=== PATIENT | female | born 1985 | race Two or more races ===

== ENCOUNTER → 2023-06-21 | Outpatient (CLI) | payer OTHER, SELFPAY ==
[2023-06-21 11:07] LABS: ALB/GLOB Ratio 1.1 RATIO (0.9-2.4); AST(SGOT) 9 U/L (15-37); Alanine Aminotransfer ALT/SGPT 18 U/L (13-56); Alkaline Phosphatase 41 U/L (45-117); Anion Gap 4 (5-15); BUN 11 mg/dL (7-18); BUN/Creat Ratio 15.2 RATIO (10-20); Calcium,Total 8.8 mg/dL (8.5-10.1); Chloride 105 mmol/L (98-107); Cholesterol 210 mg/dL (200); Creatinine, Serum 0.72 mg/dL (0.55-1.02); EST Glomerular Filtration Rate 95 mL/min (>60); Est Glom Filt Rate - Afr Amer 115 mL/min (>60); Globulin 3.5 g/dL (2.2-4.2); Glucose 96 mg/dL (74-106); High Density Lipoprotein 57 mg/dL; Potassium 4.2 mmol/L (3.5-5.1); Protein, Total 7.5 g/dL (6.4-8.2); Sodium Level 137 mmol/L (136-145); Triglycerides 58 mg/dL; Very Low Density Lipoprotein 12 mg/dL (5-40)
== END | disposition home or self-care (01) ==
PROVIDERS: PCP Family Medicine; Referring Provider Family Medicine; Visit Provider Family Medicine
DX: Z00.00 Encounter for general adult medical examination without abnormal findings (principal)
CPT/HCPCS: 36415; 80053; 80061; 84443

== ENCOUNTER → 2023-10-15 | Outpatient (CLI) | payer OTHER, SELFPAY ==
--- NOTE | 2023-10-15 09:40 | BI_ITS ---
MAMMOGRAPHY - BILATERAL SCREENING REASON FOR EXAM: Female, 38 years old. Routine annual screening examination. PERTINENT HISTORY: Non-contributory. TECHNIQUE: Digital bilateral breast victoria (3D mammographic acquisition) in the CC and MLO projections. 2-D mediolateral oblique (MLO) and craniocaudad (CC) views of both breasts were obtained. CAD: Full Field Digital Mammography with Computer Added Detection was performed. COMPARISON: None. Baseline examination. FINDINGS: Breast Composition: The breasts are extremely dense, which lowers the sensitivity of mammography. There are no dominant masses or suspicious calcifications. No other significant abnormalities are identified. BI/SCRN MAMM (CAD)W/VICTORIA BILAT IMPRESSION: Negative screening mammogram. Yearly followup mammogram recommended. (A) ASSESSMENT CATEGORY: BIRADS Category 1: Negative. A letter regarding these results will be sent to the patient by the facility within 30 days. Approximately 10% of breast cancers are not detected by mammography. A normal mammogram should not delay biopsy of a clinically suspicious abnormality. [id number] Electronically Signed: Marco A Villa MD at 12:15 EST ,
--- OUTSIDE RECORDS SUMMARY | 2023-10-15 10:06 | XMS RPT_ITS | CCD ---
Author Name Unknown Address [address] [place] [address] Organization [facility] Care Team Providers Care Area Director Name Role Phone Franck Pate Unavailable Unavailable Franck Pate Unavailable Unavailable No Doctor Assigned, Nodr Unavailable Unavail able Arjun Gonsalves Primary Care Provider ASHTYN ARJUN Primary Care Unavailable ASHTYN, ARJUN Primary Care Unavailable YAHAIRA, LAUREEN Boogie Attending Unavailable YAHAIRA, LAUREEN F Referring Unavailable YAHAIRA, LAUREEN F Attending Unavailable YAHAIRA, LAUREEN F Referring Unavailable ASHTYN, ARJUN Primary Care Unavailable TADEO ROBIN Attending Unavailable TADEO ROBIN Referring Unavailable ASHTYN ARJUN Primary Care Unavailable NATHANIEL AGEE Attending Unavailable ASHTYN, ARJUN Primary Care Unavailable ASHTYN, ARJUN Referring Unavailable ASHTYN, ARJUN Primary Care Unavailable ILIANA GIPSONHEN Attending Unavailable Allergies Allergy Classification Reported Allergen(s) Allergy Type Date of Onset Reaction(s) Facility (1 source) No Known Medication Allergies; Translations: [No Known Medication Allergies] Propensity to adverse reactions to drug (disorder) [facility] Repository Medications Current Medications Medication Drug Class(es) Dates Sig (Normalized) Sig (Original) Ethinyl Estradiol / Ferrous fumarate / Norethindrone (1 source) Estrogen Start: 07-14-2021Februaryl Fe 24 1-20 MG-MCG(24) tablet hydrOXYzine hydrochloride 50 mg oral tablet (1 source) Antihistamine Start: 08-04-2021 take 1 tablet by mouth every six hours as needed hydrOXYzine hcl 50 MG tablet Take 1 tablet by mouth every 6 hours as needed for Anxiety for up to 20 doses. 20 tablet 0 08/04/2021 Active Completed/Discontinued Medications Medication Drug Class(es) Dates Sig (Normalized) Sig (Original) albuterol 0.83 mg/ml inhalation solution (1 source) beta2-Adrenergic Agonist Start: 08-04-2021 End: 08-04-2021 albuterol (PROVENTIL) (2.5 MG/3ML) 0.083% inhalation solution 1.25 mg Problems Active Problems Problem Classification Problem Date Documented Da te Episodic/Chronic Other upper respiratory disease (2 sources) Nasal congestion; Translations: [Nasal congestion] Onset: 06-03-2022 Episodic Residual codes; unclassified (2 sources) Other specified personal risk factors, not elsewhere classified; Translations: [Other specified personal risk factors, not elsewhere classified] Onset: 06-03-2022 Episodic Unclassified (1 source) Cough, unspecified; Translations: [Cough, unspecified] Onset: 06-03-2022 Past or Other Problems Problem Classification Problem Date Documented Da te Episodic/Chronic Diabetes mellitus without complication (3 sources) Increased glucose level; Translations: [Other abnormal glucose] Onset: 08-04-2021 Episodic Fluid and electrolyte disorders (3 sources) Hypokalemia; Translations: [Hypokalemia] Onset: 08-04-2021 Episodic Other lower respiratory disease (2 sources) Chest pain on breathing; Translations: [Chest pain on breathing] Onset: 08-04-2021 Episodic Other lower respiratory disease (1 source) Chest pain on breathing; Translations: [Chest pain on breathing] Onset: 08-04-2021 Episodic Unclassified (1 source) Cough, unspecified; Translations: [Cough, unspecified] Onset: 06-03-2022 Results Test Name Value Interpretation Reference Range Facil ity Vital Signs Date Time Vital Sign Value Performing Clinician Iva cantu 08-04-2021 19:00-0500 Diastolic blood pressure 76 mm[Hg] Nathaniel Agee MD Work Phone: [facility] 08-04-2021 19:00-0500 Heart rate 73 /min Nathaniel Agee MD Work Phone: [facility] 08-04-2021 19:00-0500 Respiratory rate 19 /min Nathaniel Agee MD Work Phone: [facility] 08-04-2021 19:00-0500 SaO2% (BldA) [Mass fraction] 98 % Nathaniel Agee MD Work Phone: [facility] 08-04-2021 19:00-0500 Systolic blood pressure 125 mm[Hg] Nathaniel Agee MD Work Phone: [facility] 08-04-2021 15:41-0500 Body height 177.8 cm Nathaniel Agee MD Work Phone: [facility] 08-04-2021 15:41-0500 Body mass index (BMI) [Ratio] 25.83 kg/m2 Nathaniel Agee MD Work Phone: [facility] 08-04-2021 15:41-0500 Body weight 81.65 kg Nathaniel Agee MD Work Phone: [facility] Encounters Encounter Date Encounter Type Care Provider Facility Start: 06-03-2022 ambulatory [facility] Start: 10-27-2021 ambulatory [facility] Start: 08-04-2021 End: 08-04-2021 Emergency department patient visit NATHANIEL AGEE [facility] Start: 08-04-2021 End: 08-04-2021 Emergency department patient visit Nathaniel Agee MD Work Phone: [facility] Start: 07-27-2021 ambulatory [facility] Start: 06-24-2021 ambulatory [facility] Start: 05-06-2018 End: 05-06-2018 Patient encounter Franck Pate Facility:[facility] Procedures Date Procedure Procedure Detail Performing Clinician Start: 08-04-2021 Complete blood count with white cell differential, automated Nathaniel Agee MD Work Phone: Start: 08-04-2021 Comprehensive metabo lic panel Nathaniel Agee MD Work Phone: Plan of Treatment Date Care Activity Detail Author Start: 2004 Screening for malign ant neoplasm of cervix CERVICAL CANCER SCREENING DISCUSSION [facility] Start: 2002 Third diphtheria, te tanus and acellular pertussis (DTaP) vaccination TDAP (ADULT) [facility] Start: 2001 Tetanus vaccination TETANUS [facility] Start: 1998 HIV screening HIV SCREENING DISCUSSION [facility] Start: 1988 COVID-19 VACCINE (1) COVID-19 VACCIN E (1) [facility] Start: 1983 Hepatitis C antibody , confirmatory test HEPATITIS C VIRUS SCREENING [facility] Payers Date Payer Category Payer Unknown [facility] [id number] 2021-Present [address] [address] [place] [address] [id number] 2021 Unknown [id number] 2018 Unknown 1983 Unknown [id number] 1983 Unknown [id number] 1983 Unknown [id number] 1983 Unknown [id number] 1983 Unknown [id number] 1983 Unknown [id number] Social History Date Type Detail Facility [facility]: [facility]04[facility] Start: 08-04-2021 Tobacco use and exposure Smoke less tobacco non-user [facility] Start: 08-04-2021 Alcohol intake Lifetime non-d daniel (finding) [facility] Start: 08-04-2021 History SDOH Alcohol Frequency 1 [facility] Start: 1985 Sex Assigned At Not on file A [facility] Exposure to SARS-CoV -2 (event) Yes [facility] Emergency department Note 08-04-2021 Alisson Myers RN - 08/04/2021 7:03 PM Kenton Myers RN - 08/04/2021 5:34 PM Mars Agee MD - 08/04/2021 4:44 PM Kenton Myers RN - 08/04/2021 4:21 PM EST Note Date & Type Note Facility 08-04-2021 Emergency departm ent Note Reported off to Bereket PHILLIPS at this time Radha in [place] notified of breathing treatment Emergency Department Report [facility] EM[facility] Service Date:.08/04/21 PCP: Arjun Gipson Chief Complaint: Chief Complaint Patient presents with Chest Pain Rapid Heart Rate HPI Raúl Cabrera is a 36 y.o. 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 She has not been having any cough or fever or any Covid symptoms and just finished getting over Covid about 6 weeks ago. Her heart rate would go up to the 100 210 range and states it normally would only go up to 70 or 80. She had an IUD removed about a month ago and has been on 3 weeks of hormone replacement. She also was started 6 days ago on Lexapro for anxiety. She does seem like her anxiety may have actually increased a little since being started on it. She has not had any wheezing and presents here for assessment. Review of Systems: Review of Systems All other systems reviewed and are negative. Past Medical History: No past medical history on file. Past Surgical History: No past surgical history on file. Allergies: No Known Allergies Medications: Patient's Medications New Prescriptions HYDROXYZINE HCL 50 MG TABLET Take 1 tablet by mouth every 6 hours as needed for Anxiety for up to 20 doses. Previous Medications 1-20 MG-MCG(24) TABLET Modified Medications No medications on file Discontinued Medications No medications on file Family History: History reviewed. No pertinent family history. Social History: Social History Socioeconomic History Marital status: Spouse name: Not on file Number of children: Not on file Years of education: Not on file Highest education level: Not on file Occupational History Not on file Tobacco Use Smoking status: Never Smoker Smokeless tobacco: Never Used Substance and Sexual Activity Alcohol use: Never Drug use: Never Sexual activity: Not on file Other Topics Concern Not on file Social History Narrative Not on file Social Determinants of Health Financial Resource Strain: Not on file Food Insecurity: Not on file Transportation Needs: Not on file Physical Activity: Not on file Stress: Not on file Social Connections: Not on file Intimate Partner Violence: Not on file Housing Stability: Not on file Physical Exam: Physical Exam Vitals and nursing note reviewed. Constitutional: Appearance: Normal appearance. She is well-developed. Comments: Patient is able to talk in complete sentences. HENT: Head: Normocephalic and atraumatic. Mouth/Throat: Mouth: Mucous membranes are moist. Eyes: Conjunctiva/sclera: Conjunctivae normal. Pupils: Pupils are equal, round, and reactive to light. Neck: Comments: No thyroid mass Cardiovascular: Rate and Rhythm: Normal rate and regular rhythm. Pulmonary: Effort: Pulmonary effort is normal. Breath sounds: Normal breath sounds. Abdominal: General: Abdomen is flat. Musculoskeletal: General: Normal range of motion. Cervical back: Normal range of motion and neck supple. Right lower leg: No edema. Left lower leg: No edema. Skin: General: Skin is warm and dry. Capillary Refill: Capillary refill takes less than 2 seconds. Neurological: General: No focal deficit present. Mental Status: She is alert and oriented to person, place, and time. Psychiatric: Mood and Affect: Mood normal. Behavior: Behavior normal. Thought Content: Thought content normal. Vital Signs During ED Visit Patient Vitals for the past 24 hrs: BP Pulse Resp SpO2 Height Weight 08/04/21 1900 125/76 73 19 98 % 08/04/21 1800 134/80 74 19 98 % 08/04/21 1752 (!) 144/94 74 18 100 % 08/04/21 1713 138/83 80 16 99 % 08/04/21 1541 1.778 m (5' 10 ) 81.6 kg (180 lb) 08/04/21 1540 179/84 78 18 100 % Orders/Results: Orders Placed This Encounter Troponin I, High sensitivity CBC, EDIF, PLATELET COMPREHENSIVE METABOLIC PANEL MAGNESIUM D-DIMER,QUANTITATIVE Junel Fe 24 1-20 MG-MCG(24) tablet albuterol (PROVENTIL) (2.5 MG/3ML) 0.083% inhalation solution 1.25 mg potassium chloride (K-DUR) tablet ER 20 mEq hydrOXYzine hcl 50 MG tablet Results for orders placed or performed during the hospital encounter of 08/04/21 TROPONIN I, HIGH SENSITIVITY Result Value Ref Range TROPONIN I, HIGH SENSITIVITY <2 0 - 12 pg/mL CBC, EDIF, PLATELET Result Value Ref Range WBC (WHITE BLOOD COUNT) 7.5 3.6 - 11.0 10*3/uL RBC 4.48 4.0 - 5.4 10*6/uL HEMOGLOBIN (HGB) 13.5 12.0 - 16.0 G/DL HEMATOCRIT (HCT) 39.5 36.0 - 48.0 % MEAN CELL VOLUME 88.2 80.0 - 100.0 FL Mean Cell HGB 30.2 26.0 - 35.0 PG MEAN CELL HGB CONCENTRATION 34.2 27.0 - 37.0 G/DL RBC DISTRIBUTION 12.8 11.5 - 14.5 % PLATELET COUNT 277 130.0 - 400.0 10*3/uL MEAN PLATELET VOLUME 9.6 7.4 - 11.0 FL DIFFERENTIAL TYPE AUTO DIFF % NEUTROPHILS 68.9 37.0 - 75.0 % LYMPHOCYTE 22.5 20.0 - 55.0 % MONOCYTE % 7.4 0.0 - 10.0 % EOSINOPHIL % 0.6 0.0 - 11.0 % BASOPHIL % 0.6 0.0 - 2.0 % Absolute Neutrophil Count 5.2 1.4 - 6.5 10*3/uL LYMPHOCYTES, ABSOLUTE 1.70 1.2 - 3.4 10*3/uL MONOCYTES, ABSOLUTE 0.6 0.0 - 0.7 10*3/uL ABSOLUTE EOSINOPHIL COUNT 0.00 0.0 - 0.7 10*3/uL ABSOLUTE BASOPHIL COUNT 0.0 0.0 - 0.2 10*3/uL COMPREHENSIVE METABOLIC PANEL Result Value Ref Range GLUCOSE 121 (H) 70 - 100 MG/DL BUN 9 7 - 20 MG/DL CREATININE SERUM 0.79 0.52 - 1.04 MG/DL SODIUM 136 136 - 145 MMOL/L POTASSIUM 3.4 (L) 3.5 - 5.1 MMOL/L CHLORIDE 102 98 - 107 MMOL/L CALCIUM 9.3 8.4 - 10.2 MG/DL PROTEIN, TOTAL 7.7 6.3 - 8.2 GM/DL ALBUMIN 4.5 3.5 - 5.0 G/dl BILIRUBIN, TOTAL 0.5 0.2 - 1.2 MG/DL AST 14 (L) 15 - 41 IU/L ALKALINE PHOSPHATASE 34 (L) 38 - 126 IU/L CARBON DIOXIDE (CO2) 24 22 - 30 MMOL/L A/G Ratio 1.4 1.3 - 2.2 RATIO ALT 15 14 - 54 IU/L ESTIMATED GFR, NON AMER >60 ml/min/1.73sq.m ESTIMATED GFR, >60 ml/min/1.73sq.m GFR COMMENT Average GFR for 30-39 years old = 109. MAGNESIUM Result Value Ref Range MAGNESIUM 2.1 1.6 - 2.3 MG/DL D-DIMER,QUANTITATIVE Result Value Ref Range D-DIMER 0.43 <0.50 mg/L FEU Radiographic Imaging No orders to display Procedures: Procedures Patient had an EKG obtained read by myself and shows normal sinus rhythm. She has a questionable incomplete right bundle branch block with [place] 0.16 and a QRS of 0.1. There are no acute ST-T changes and no old EKGs to compare this to. Moderate Sedation Procedure: No ED Summary/MDM patient's states she has felt stressed and some anxiety. This does seem like it has increased since she was started on the Lexapro. She is having central chest burning with inspiration and expiration and will see what albuterol treatment does. We will also get a baseline electrolytes and labs and compared to what she had done just a couple weeks ago Labs had a sugar that was mildly elevated at 121. Potassium was 3.4. D-dimer was negative. Sat remained 100% and she states she may have had just a brief slight decrease in her chest feeling with the breathing treatment but did not want to pursue this further. We will have her hold the Lexapro and follow-up with Dr. Da Silva calling in the morning to give an update. If she starts having a fever or starts feeling worse then she needs to be rechecked earlier. We will add intermittent hydroxyzine as needed Clinical Impression: 1. Chest pain on breathing 2. Hypokalemia 3. Elevated glucose No follow-ups on file. New Prescriptions HYDROXYZINE HCL 50 MG TABLET Take 1 tablet by mouth every 6 hours as needed for Anxiety for up to 20 doses. Discontinued Medications No medications on file An After Visit Summary was printed and given to the patient with above information. . . Nathaniel Agee MD 08/04/211923 Nathaniel Agee MD 08/04/211942 Pt states that she is feeling chest pressure with feeling of SOB. Pt states that her blood pressure has been higher than her normal. Pt also states that she started birthcontrol 3 weeks ago. Pt is resting comfortable and denies any needs at this time Bed: E011 Expected date: Expected time: Means of arrival: Comments: JIC documented in this encounter [facility] Hospital Discharge instructions 08-04-2021 Instructions Note Date & Type Note Facility 08-04-2021 Hospital Discharg e instructions Nathaniel Agee MD - 08/04/[address] GIPSON IN THE MORNING TO ARRANGE FOR FOLLOW UP BASED ON HOW YOU ARE FEELING. YOUR SUGAR WAS UP A LITTLE AND YOUR POTASSIUM WAS SLIGHTLY LOW AND GIVEN A ONE TIME BOOST AND BOTH MAY NEED RECHECKED. HOLD THE LEXAPRO FOR NOW AND TRY THE HYDROXYZINE (CAN START WITH 1/2 PILL) FOR ANXIETY FEELING. GET RECHECKED EARLIER IF FEVER OR WORSE BREATHING CONSIDER PULSE OX CHECK) OR PUS HEART RATE STAYING 130 OR HIGHER. documented in this encounter [facility] Evaluation note Note Date & Type Note Facility documented in this encounter [facility] Summary Purpose Family History No Family History Records FoundNo Family History Records Found Advance Directives No Advanced Directives Records FoundNo Advanced Directives Records Found Additional Source Comments INFORMATION SOURCE (unrecogn ized section and content) DATE CREATED AUTHOR AUTHOR'S ORGANIZ ATION 06/16/2022 [facility] benito Reason for Visit (unrecogniz ed section and content) Scheduled Active and Recently Administ ered Medications (unrecognized section and content) Care Teams (unrecognized sec tion and content) FOR RECORDS PERTAINING TO PATIENTS WHO ARE OR HAVE BEEN ENROLLED IN A CHEMICAL DEPENDENCY/SUBSTANCEABUSE PROGRAM, SOME INFORMATION MAY BE OMITTED. This clinical summary was aggregated from multiple sources. Caution should be exercised in using it in the provision of clinical care. This summary normalizes information from multiple sources, and as a consequence, information in this document may materially change the coding, format and clinical context of patient data. In addition, data may be omitted in some cases. CLINICAL DECISIONS SHOULD BE BASED ON THE PRIMARY CLINICAL RECORDS. [facility] [employer] provides no warranty or guarantee of the accuracy or completeness of information in this document.
== END | disposition home or self-care (01) ==
LOC: OPBI 09:38
PROVIDERS: PCP Family Medicine
DX: Z12.31 Encounter for screening mammogram for malignant neoplasm of breast (principal)
CPT/HCPCS: 77063; 77067

== ENCOUNTER → 2023-10-30 | Outpatient (CLI) | payer OTHER, SELFPAY ==
[2023-10-31 14:16] LABS: Bacteria 0 SEEN /hpf (None Seen); Mucous, Urine 0 SEEN /hpf (<or=2+); Red Blood Cells-Urine 0 SEEN /hpf (0-5); Squamous Epithelial Cells - UA 0 SEEN /hpf (5-10); White Blood Cells 0 SEEN /hpf (0-5)
--- OUTSIDE RECORDS SUMMARY | 2023-10-31 14:18 | XMS RPT_ITS | CCD ---
Author Name Unknown Address [address] [place] [address] Organization [facility] Care Team Providers Care Patient Partner Name Role Phone Franck Pate Unavailable Unavailable [...] Propensity to adverse reactions to drug (disorder) [facility] Repository Medications Current Medications Medication Drug Class(es) [...] 76 mm[Hg] Nathaniel Agee MD Work Phone: [facility] 08-04-2021 19:00-0500 Heart rate 73 /min Nathaniel Agee MD Work Phone: [facility] 08-04-2021 19:00-0500 Respiratory rate 19 /min Nathaniel Agee MD Work Phone: [facility] 08-04-2021 19:00-0500 SaO2% (BldA) [Mass fraction] 98 % Nathaniel Agee MD Work Phone: [facility] 08-04-2021 19:00-0500 Systolic blood pressure 125 mm[Hg] Nathaniel Agee MD Work Phone: [facility] 08-04-2021 15:41-0500 Body height 177.8 cm Nathaniel Agee MD Work Phone: [facility] 08-04-2021 15:41-0500 Body mass index (BMI) [Ratio] 25.83 kg/m2 Nathaniel Agee MD Work Phone: [facility] 08-04-2021 15:41-0500 Body weight 81.65 kg Nathaniel Agee MD Work Phone: [facility] Encounters Encounter Date Encounter Type Care Provider Facility Start: 06-03-2022 ambulatory [facility] Start: 10-27-2021 ambulatory [facility] Start: 08-04-2021 End: 08-04-2021 Emergency department patient visit NATHANIEL AGEE [facility] Start: 08-04-2021 End: 08-04-2021 Emergency department patient visit Nathaniel Agee MD Work Phone: [facility] Emergency Department Start: 07-27-[address] [facility] Start: 06-24-2021 ambulatory [facility] Start: 05-06-2018 End: 05-06-2018 Patient encounter Franck Pate Facility:[facility] Procedures Date Procedure Procedure Detail Performing Clinician Start: 08-04-2021 Complete blood count with white cell differential, automated Nathaniel Agee MD Work Phone: Start: 08-04-2021 Comprehensive metabo lic panel Nathaniel Agee MD Work Phone: Plan of Treatment Date Care Activity Detail Author Start: 2004 Screening for malign ant neoplasm of cervix CERVICAL CANCER SCREENING DISCUSSION [facility] Start: 2002 Third diphtheria, te tanus and acellular pertussis (DTaP) vaccination TDAP (ADULT) [facility] Start: 2001 Tetanus vaccination [facility] Start: 1998 HIV screening HIV SCREENING DISCUSSION [facility] Start: 1988 COVID-19 VACCINE (1) COVID-19 VACCIN E (1) [facility] Start: 1983 Hepatitis C antibody , confirmatory test HEPATITIS C VIRUS SCREENING [facility] Payers Date Payer Category Payer Unknown [facility] [id number] 2021-Present [address] [address] [place] [address] [id number] 2021 Unknown [id number] 2018 Unknown 1983 Unknown [id number] 1983 Unknown [id number] 1983 Unknown [id number] 1983 Unknown [id number] 1983 Unknown [id number] 1983 Unknown [id number] Social History Date Type Detail Facility Start: [facility]04[facility] Start: 08-04-2021 Tobacco use and exposure Smoke less tobacco non-user [facility] Start: 08-04-2021 Alcohol intake Lifetime non-d daniel (finding) [facility] Start: 08-04-2021 History SDOH Alcohol Frequency 1 [facility] Start: 1985 Sex Assigned At Not on file [facility] Exposure to SARS-CoV -2 (event) Yes [facility] Emergency department Note 08-04-2021 Alisson Myers RN - 08/04/2021 7:03 PM Kenton Myers RN - 08/04/2021 5:34 PM Mars Agee MD - 08/04/2021 4:44 PM Kenton Myers RN - 08/04/2021 4:21 PM EST Note Date & Type Note Facility 08-04-2021 Emergency departm ent Note Reported off to Bereket PHILLIPS at this time Radha in [place] notified of breathing treatment Emergency Department Report [facility] EMERGENCY DEPARTMENT Service Date:.08/04/21 PCP: Arjun Gipson Chief Complaint: Chief Complaint Patient presents with Chest Pain Rapid Heart Rate HPI Raúl Cabrera is a 36 y.o. 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 There [...] arrival: Comments: JIC documented in this encounter [facility] Hospital Discharge instructions 08-04-2021 Instructions Note Date [...] 130 OR HIGHER. documented in this encounter [facility] Evaluation note Note Date & Type Note Facility documented in this encounter [facility] Summary Purpose Family History No Family History Records FoundNo Family History Records Found Advance Directives No Advanced Directives Records FoundNo Advanced Directives Records Found Additional Source Comments INFORMATION SOURCE (unrecogn ized section and content) DATE CREATED AUTHOR AUTHOR'S ORGANIZ ATION 06/16/2022 [facility] benito Reason for Visit (unrecogniz ed section [...] BE BASED ON THE PRIMARY CLINICAL RECORDS. [facility] [employer] provides no warranty or guarantee of the accuracy or completeness of information in this document.
[2023-10-31 14:25] LABS: Color, Urine Yellow (Yellow); Glucose, Dipstick Normal (Normal); Ketone-Dipstick Negative (Negative); Leukocyte Esterase-Dipstick Negative /ul (Negative); Nitrite-Dipstick Negative (Negative); Occult Blood-Urine Negative /ul (Negative); Protein-Dipstick Negative (Negative); Specific Gravity, Urine 1.005 (1.002-1.030); Urine Bilirubin Dipstick Negative (Negative); Urine Clarity Clear (Clear); Urine Urobilinogen Normal (Normal)
== END | disposition home or self-care (01) ==
LOC: LABSPEC 10-31 14:15
PROVIDERS: PCP Family Medicine; Referring Provider Nurse Practitioner Family; Visit Provider Nurse Practitioner Family
DX: R10.30 Lower abdominal pain, unspecified (principal)
CPT/HCPCS: 81001; 87086

== ENCOUNTER → 2024-03-07 | Outpatient (CLI) | payer OTHER, SELFPAY | END | disposition home or self-care (01) | LOC: LABSPEC 11:35 | PROVIDERS: Referring Provider Physician Assistant; Visit Provider Physician Assistant | DX: R30.0 Dysuria (principal) | CPT/HCPCS: 87086; 87088; 87186 ==

== ENCOUNTER → 2024-03-17 | Outpatient (CLI) | payer OTHER, SELFPAY | END | disposition home or self-care (01) | LOC: LABSPEC 10:46 | PROVIDERS: Referring Provider Physician Assistant Surgical; Visit Provider Physician Assistant Surgical | DX: N39.0 Urinary tract infection, site not specified (principal) | CPT/HCPCS: 87086; 87088 ==

== ENCOUNTER → 2024-10-25 | Outpatient (CLI) | payer OTHER, SELFPAY ==
[2024-10-25 13:30] LABS: Free T3 2.6 pg/mL (2.18-3.98); T4 Free Direct 0.86 ng/dL (0.76-1.46)
[2024-10-27 08:09] LABS: Thyroid Peroxidase AB < 9 IU/mL (0-34)
== END | disposition home or self-care (01) ==
LOC: LAB 12:11
PROVIDERS: PCP Internal Medicine; Referring Provider Nurse Practitioner Family; Visit Provider Nurse Practitioner Family
DX: Z13.29 Encounter for screening for other suspected endocrine disorder (principal)
CPT/HCPCS: 36415; 84439; 84443; 84481; 86376

== ENCOUNTER → 2024-10-30 | Outpatient (CLI) | payer OTHER, SELFPAY ==
--- NOTE | 2024-10-30 12:48 | BI_ITS ---
PROCEDURE: SCRN MAMM (CAD)W/VICTORIA BILAT REASON FOR EXAM: F, Age 39 y/o, presents for annual screening mammogram. No family history of breast cancer. TECHNIQUE: Bilateral screening digital breast tomosynthesis with 2D and 3D images. Computer aided detection. COMPARISON: 10/15/2023 FINDINGS: The breasts are extremely dense which lowers the sensitivity of mammography. The mammogram demonstrates that the patient has dense breasts. Supplemental screening with whole breast ultrasound may be considered for further evaluation. No suspicious masses, areas of developing architectural distortion, or suspicious calcifications. BI/SCRN MAMM (CAD)W/VICTORIA BILAT IMPRESSION: There is no mammographic evidence of malignancy in either breast. BI-RADS 1: NEGATIVE. RECOMMEND ANNUAL MAMMOGRAPHIC SCREENING. Follow-up code: Routine Follow-up The patient will be notified of the results by letter. Reading Location: [id number]
--- NOTE | 2024-10-30 13:05 | US_ITS ---
PROCEDURE: THYROID REASON FOR EXAM: Thyroid nodules. TECHNIQUE: Thyroid ultrasound COMPARISON: None. FINDINGS: Right thyroid lobe measures 5 cm x 1.8 cm x 1.6 cm. Left thyroid lobe measures 3.8 cm x 1.2 cm x 0.7 cm. Isthmus thickness is. Thyroid Size: Mild enlargement of the right lobe of the thyroid. Background Echotexture: Normal Thyroid Nodules: There is a dominant 2.6 cm x 2.2 cm 1.3 cm hypoechoic/solid nodule with internal vascularity. Biopsy recommended. There is evidence of an 8 mm x 5 mm x 4 mm complex nodule with internal vascularity in the upper pole of the left lobe as well as an 8 mm x 6 mm x 4 mm cystic nodule in the inferior aspect of the left lobe of the thyroid. US/Thyroid IMPRESSION: Mildly enlarged right lobe of the thyroid gland with a dominant complex mass in the midportion of the right lobe of the thyroid. Biopsy recommended. Reading Location: [facility]
== END | disposition home or self-care (01) ==
LOC: OPBI 12:47
PROVIDERS: PCP Internal Medicine; Referring Provider Nurse Practitioner Family; Visit Provider Nurse Practitioner Family
DX: Z12.31 Encounter for screening mammogram for malignant neoplasm of breast (principal); E04.1 Nontoxic single thyroid nodule
CPT/HCPCS: 76536; 77063; 77067

== ENCOUNTER → 2024-11-24 | Outpatient (CLI) | payer OTHER, SELFPAY ==
--- NOTE | 2024-11-24 13:00 | FLU_PTH ---
PATIENT: RAÚL MIRANDA LOC: [facility] U#:[id number] AGE/SX: 39/F ROOM: RE11/24/[address]: Dr. Franck Dupont MD : 1985 BED: DIS: 11/24/2024 SPEC #: [id number] RECD: 11/24/24 14:02 STATUS: MAYRA HUSSEIN #: [id number] TYRON: 11/24/24 13:[address]: Franck Dupont DEPT: CYTOLOGY RECD BY: Deondre Parker ENTERED: 11/24/24 14:32 SP TYPE: Fluid OTHR DR: Dr. Leda Wright MD Tissues: A - Thyroid gland, NOS B - Thyroid gland, NOS Procedures: Special Stain Group II Surgery Specimen Level IV Cytospin Fluid HEADER OPERATION: Fine needle aspiration of right thyroid nodule PRE-OP DIAGNOSIS: Right thyroid nodule TISSUE SUBMITTED: A- Right mid thyroid nodule fluid, B- Right mid thyroid nodule slides DIAGNOSIS CYTOLOGY A. Right mid thyroid nodule, 2.6 cm, cytology and cell block:Benign follicular noduleOccasional nuclear grooves and microfollicles are presentB. Right mid thyroid nodule, 2.6 cm, cytology:Benign follicular noduleFollicular cells and some colloid are presentVasyl Ren MD, 11/30/2024 CYTOLOGY STUDY Slides are reviewed. CYTOLOGY GROSS A. Received is 30 ml of fluid labeled with the patient's name and and designated per the requisition as Right mid thyroid nodule. Submitted for cytology preparation including cell block. B. Received are 4 smears labeled with the patient's name and designated per the requisition as Right mid thyroid nodule. Submitted for staining. Mr 11/24/2024 CPT: 23702h2,63167 , TC:5
== END | disposition home or self-care (01) ==
LOC: LABSPEC 14:06
PROVIDERS: PCP Internal Medicine; Referring Provider Surgery; Visit Provider Surgery
DX: E04.1 Nontoxic single thyroid nodule (principal)
CPT/HCPCS: 88108; 88305; 88313

== ENCOUNTER → 2025-03-08 | Outpatient (CLI) | payer OTHER, SELFPAY ==
[2025-03-08 16:38] LABS: Follicle Stimulating Hormone 4.9 mIU/mL
[2025-03-14 09:09] LABS: Sex Hormone-binding Globulin 54.3 nmol/L (24.6-122.0); Testosterone, % Free 2.61 % (0.50-2.80); Testosterone, Free 5.27 ng/dL (0.10-0.85); Testosterone, Total 202 ng/dL (4-50)
== END | disposition home or self-care (01) ==
LOC: LAB 15:13
PROVIDERS: PCP Internal Medicine
DX: N95.9 Unspecified menopausal and perimenopausal disorder (principal); R51.9 Headache, unspecified; F39 Unspecified mood [affective] disorder; L70.8 Other acne
CPT/HCPCS: 36415; 82670; 83001; 84270; 84402; 84403

== ENCOUNTER → 2025-04-03 | Outpatient (CLI) | payer OTHER, SELFPAY ==
[2025-04-06 22:07] LABS: Chlamydia By Nucleic Acid AMP Negative (Negative); Gonococcus By Nucleic Acid AMP Negative (Negative)
== END | disposition home or self-care (01) ==
LOC: LABSPEC 16:17
PROVIDERS: Nurse Practitioner Women's Health; PCP Internal Medicine; Visit Provider Obstetrics & Gynecology
DX: N89.8 Other specified noninflammatory disorders of vagina (principal); Z11.3 Encounter for screening for infections with a predominantly sexual mode of transmission
CPT/HCPCS: 87070; 87077; 87205; 87491; 87591

== ENCOUNTER → 2025-04-06 | Outpatient (CLI) | payer OTHER, SELFPAY ==
--- NOTE | 2025-04-06 14:26 | US_ITS ---
PROCEDURE: PELVIC W/ TRANSVAGINAL 04/06/2025 REASON FOR EXAM: AUB TECHNIQUE: PELVIC W/ TRANSVAGINAL COMPARISON: None. FINDINGS: Measurements: Uterus: 10.5 x 5.2 x 5.9 cm for volume of 165.9 mL Endometrial Thickness: 0.7 cm Right Ovary: 4.2 x 2.9 x 3.3 cm for volume of 20.5 mL . Left Ovary: 2.6 x 3.0 x 2.6 cm for volume of 10.7 mL. Uterus: Anteverted. Normal contour echotexture. Heterogeneous lesion near the uterine fundus measuring 1.2 x 1.0 x 1.2 cm. Endometrium: Normal echotexture. Trace fluid in the cervical canal. Right ovary: Multiple prominent follicles, approximately 10 on a single image. Left ovary: Questionable hypoechoic avascular lesion near the periphery measuring less than 1 cm could represent a corpus luteum or hemorrhagic cyst (O-RADS 1 or 2), and does not require follow-up. Cul-de-sac: Minimal free fluid in the pelvis within normal limits. Color Doppler: Normal color flow doppler signal at both ovaries. US/Pelvic w/ Transvaginal IMPRESSION: 1. Polycystic morphology of the right ovary. Correlate for clinical evidence of PCOS. 2. Leiomyoma at the uterine fundus measuring 1.2 cm. Reading Location: [id number]
== END | disposition home or self-care (01) ==
LOC: US 14:22
PROVIDERS: PCP Internal Medicine; Referring Provider Nurse Practitioner Women's Health; Visit Provider Nurse Practitioner Women's Health
DX: N93.9 Abnormal uterine and vaginal bleeding, unspecified (principal); N89.8 Other specified noninflammatory disorders of vagina; A63.0 Anogenital (venereal) warts; Z20.2 Contact with and (suspected) exposure to infections with a predominantly sexual mode of transmission
CPT/HCPCS: 76830; 76856

== ENCOUNTER 2025-04-24 10:47 | Outpatient (REF) | payer OTHER, SELFPAY ==
[2025-04-24 10:47] VITALS: BP 138/100; PULSE 77; RESP 16; TEMP 36.1; O2SAT 100; BMI 21.5
--- NOTE | 2025-04-24 11:40 | EX.ED.UPPERE ---
HPI History of Present Illness HPI Narrative: Patient presents with needlestick exposure to her left index finger that occurred today. Patient states she was administering heparin to outpatient when the needle went through his skin and into her finger. Patient reports that the source patient does not have a diagnosis of HIV or hepatitis. Patient reports that the source patient is admitted to the hospital for congestive heart failure and he is 90+ years old. Patient denies any paresthesias or weakness. Patient states her immunizations are up-to-date. Chief Complaint: Occup Expose Informant: patient Occured/Mechanism Mechanism/Context: Yes work related Comment: Needlestick exposure Onset/Context/Timing Onset: Today Context: Sudden Onset Timing: Continuous Location: Pad of left index finger Current Severity: Gone Associated Symptoms Associated Symptoms: Negative for Parasthesia, Weakness or Loss of Funtion [facility] Medical History Situational anxiety Allergies No active medical problems Home Medications ?Medication ?Instructions ?Recorded ?Last Taken ?Type boric acid 600 mg vaginal mg vaginal 04/03/25 Unknown History suppository cholecalciferol (vitamin D3) 50 50 mcg PO QDAY 04/03/25 Unknown History mcg (2,000 unit) capsule doxycycline hyclate 50 mg capsule 50 mg PO QDAY 04/03/25 Unknown History imiquimod 5 % topical cream packet 1 applic topical .COMPLEX #12 ea 04/03/25 Unknown Rx multivitamin 1 tab PO QAM 04/03/25 Unknown History testosterone 25 mg implant pellet mg implant 04/03/25 Unknown History norethindrone acetate 5 mg tablet 5 mg PO .COMPLEX #45 tabs 04/08/25 Unknown Rx Allergy/AdvReac Type Severity Reaction Status Date / Time No Known Allergies Allergy Verified 04/24/25 10:49 Family History Father Myocardial infarction, Onset Age: 48 Heart disease CVA (cerebral vascular accident), Onset Age: 60 AAA (abdominal aortic aneurysm) Afib Sister Autoimmune disease lupus Mother Thyroid disorder Surgical History History of surgical procedure [place] teeth extracted Social History adopted: No household members: children number of children: 1 current occupational status: employed 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 pets and animals: Yes pets and animals: cat(s) and dog(s) sexually active: Yes Smoking Status: Former smoker quit date: 09/20/13 pack-years: 7 Tobacco: How many years used: 15 alcohol intake: current alcohol intake frequency: holidays/special occasions only substance use type: does not use caffeine: Yes (1-2) Type: coffee what type of physical activity do you participate in: running frequency: 3-4 times per week do you feel safe at home: Yes ROS ROS ED Constitutional Constitutional ED: Denies chills or fever(s) Eyes Eyes: Denies blurry vision or change in vision ENT ENT ED: Denies rhinorrhea or sore throat Cardiovascular Cardiovascular: Denies chest pain or palpitations Respiratory/Chest Respiratory/Chest: Denies cough or dyspnea Gastrointestinal Gastrointestinal: Denies nausea or vomiting Genitourinary Genitourinary ED: Denies dysuria or hematuria Musculoskeletal Musculoskeletal: Denies back pain or neck pain Integumentary Denies abscess or rash Neurologic Neurologic: Denies headache(s) or weakness Allergic/Immunologic Allergic/Immunologic ED: Denies mouth swelling or urticaria EXAM Physical Exam Const Vital Signs: 04/24/25 10:47 04/24/25 11:15 Temperature 96.9 F L Temperature Source Temporal Pulse Rate 77 Respiratory Rate 16 Respiratory Effort Normal Non-Labored Respiratory Pattern Normal Blood Pressure 138/100 H Blood Pressure Mean 112 Pulse Ox 100 Oxygen Delivery Method Room Air Positive well nourished and well developed General Appearance ED: well developed and NAD HEENT Reports moist mucous membranes Neck full ROM and supple Extremity Extremity Narrative: There is a small puncture wound on the pad of the left index finger. There is no active bleeding. There is no surrounding erythema. There is no discharge or drainage. There is full range of motion of the MP, PIP, and DIP joints of the left index finger. Sensation was intact to light touch in all digits. Capillary refills less than 2 seconds in all digits. Neuro oriented x3, CN's II-XII intact bilaterally, moves all extremities, no focal motor deficits and no sensory deficits noted Sensorium / Orientation: alert Motor Exam: strength 5/5 throughout Psych mental status grossly normal MDM MDM MDM Narrative Medical decision making narrative: Patient was advised that this is low risk for transmission of HIV or hepatitis. Patient was given the option of postexposure prophylaxis but declined at this time. Patient was instructed to keep the area clean and dry. Patient was instructed to follow-up with her primary care physician in 5 to 7 days. Patient was instructed to return if worse in any way. Patient understood and was agreeable with the plan. All questions were answered. Discharge Plan Triage Chief Complaint: Occup Expose ED Provider: Jamari Flores Dx/Rx/DC Orders Clinical Impression: Accidental hypodermic needlestick injury with exposure to body fluid, Elevated blood pressure reading without diagnosis of hypertension Instructions: ED NEEDLE STICK Health Care Worker Prescriptions: No Action testosterone 25 mg pellet implant doxycycline hyclate 50 mg capsule 50 mg PO QDAY multivitamin Tablet 1 tab PO QAM cholecalciferol (vitamin D3) 50 mcg (2,000 unit) capsule 50 mcg PO QDAY boric acid 600 mg suppository vaginal imiquimod 5 % cream in packet 1 applic topical .COMPLEX Qty: 12 1RF Rx Instructions: 1 applic topical 3 times per week up to 16 weeks; norethindrone acetate 5 mg tablet 5 mg PO .COMPLEX Qty: 45 0RF Rx Instructions: 5 mg PO tid until bleeding stops X 24 hr then bid to finish Rx Primary Care Provider: Leda Wright Referrals: Leda Wright MD [Primary Care Provider] - 1-2 Weeks Print Language: Peruvian Disposition Disposition: Home, Self Care
[2025-04-24 11:52] VITALS: BP 128/87; PULSE 71; RESP 15; TEMP 36.1; O2SAT 100
[2025-04-24 12:22] LABS: HIV Nonreactive (Nonreactive); Hepatitis B Surface Antigen Nonreactive (Nonreactive); Hepatitis C Antibody Nonreactive (Nonreactive)
--- OUTSIDE RECORDS SUMMARY | 2025-04-24 18:58 | XMS RPT_ITS | CCD ---
Author Organization [facility] CliniSywv Care Team Providers Care Accounts Receivable Processor Name Role Phone Franck Pate Unavailable Unavailable Franck Pate Unavailable Unavailable No Doctor Assigned, Nodr Unavailable Unavail able [place] SELLING SPECIALIST-MOTORCYCLE MECHANIC, Arjun D Primary Care Provider ASHTYN, ARJUN Primary Care Unavailable ASHTYN, ARJUN Primary Care Unavailable YAHAIRA, LAUREEN F Attending Unavailable YAHAIRA, LAUREEN F Referring Unavailable YAHAIRA, LAUREEN F Attending Unavailable YAHAIRA, LAUREEN F Referring Unavailable ASHTYN, ARJUN Primary Care Unavailable TADEO OBREGON Attending Unavailable TADEO OBREGON Referring Unavailable ASHTYN, ARJUN Primary Care Unavailable NATHANIEL GARZA Attending Unavailable ASHTYN, ARJUN Primary Care Unavailable ASHTYN, ARJUN Referring Unavailable ASTHYN, ARJUN Primary Care Unavailable ASHTYN, ARJUN Attending Unavailable Dr. Tadeo Obregon Primary Care Provider Dr. Tadeo Obregon Referring Provider [phone] LINK Ahumada Attending Provider Dr. Leda Wright MD Primary Care Provider Dr. Leda Wright MD Referring Provider Adithya Sen Attending Provider Yudith Dimas Attending Provider Yudith Dimas Referring Provider Dr. Franck Dupont MD Attending Provider Dr. Franck Dupont MD Referring Provider Dr. Leda Wright MD Primary Care Provider Dr. Nathaniel Ren MD Attending Provider Dr. Nathaniel Ren MD Referring Provider Dr. Leda Wright MD Referring Provider BRIGITTE COTTON Attending Provider BRIGITTE COTTON Referring Provider Kyle MCDANIEL, Leda Primary Care Provider [phone] Kyle MCDANIEL, Dr. Tompkins Referring Provider Zaire WELLFIELD TECHNICIAN-CCarlee Attending Provider Dr. Anna Tracey DO Attending Provider Zaire WELLFIELD TECHNICIAN-C, Carlee Referring Provider Kyle, Leda Primary Care Unavailable Yudith Villanueva Attending Unavailable RoseliamanYudith Referring Unavailable [place], Leda Primary Care Unavailable Yudith Villanueva Attending Unavailable Yudith Villanueva Referring Unavailable Kyle, Leda Primary Care Unavailable Anna Tracey Attending Unavailabl e [place], Leda Primary Care Unavailable SedaliaFuady Referring Unavailable Carlee Tai Attending Unavailable Assessment, Health Risk Attending Unavaila ble Assessment, Health Risk Referring Unavaila ble [place], Leda Primary Care Unavailable CHANG ZUNIGA Attending Unavailable CHANG ZUNIGA Referring Unavailable Kyle, Leda Primary Care Unavailable SedaliaCarlee Attending Unavailable [place], Leda Primary Care Unavailable [place], Leda Referring Unavailable [place], Leda Primary Care Unavailable Franck Dupont Attending Unavailable [place], Leda Referring Unavailable Kyle, Leda Primary Care Unavailable Yudith Villanueva Attending Unavailable Kyle, Leda Referring Unavailable Kyle, Leda Referring Unavailable Adithya Sen Attending Unavailable [place], Leda Primary Care Unavailable Kyle, Leda Primary Care Unavailable Nathaniel Ren Attending Unavailable Nathaniel Ren Referring Unavailable [place], Leda Primary Care Unavailable Alisson Durant Attending Unavailable [place], Leda Referring Unavailable [place], Leda Primary Care Unavailable Franck Dupont Attending Unavailable Franck Dupont Referring Unavailable Dr. Jamari Flores DO Emergency Provider Allergies Allergy Classification Reported Allergen(s) Allergy Type Date of Onset Reaction(s) Facility (1 source) No Known Medication Allergies; Translations: [No Known Medication Allergies] Propensity to adverse reactions to drug (disorder) [facility] Repository Medications Current Medications Medication Drug Class(es) Dates Sig (Normalized) Sig (Original) Boric Acid 600 mg suppository (4 sources) Start: 04-03-2025 Boric Acid 600 mg suppository Active mg VAGINAL April 03, 2025 12:00am cholecalciferol 0.05 mg oral capsule (4 sources) Vitamin D Start: 04-03-2025 take 1 capsule by mouth once daily Cholecalciferol (Vitamin D3) 50 mcg (2,000 unit) capsule Active 50 ug PO daily April 03, 2025 12:00am doxycycline hyclate 50 mg oral capsule (4 sources) Tetracycline-class Drug Start: 04-03-2025 take 1 capsule by mouth once daily Doxycycline Hyclate 50 mg capsule Active 50 mg PO daily April 03, 2025 12:00am Ethinyl Estradiol / Ferrous fumarate / Norethindrone (1 source) Estrogen Start: 07-14-2021 Junel Fe 24 1-20 MG-MCG(24) tablet hydrOXYzine hydrochloride 50 mg oral tablet (1 source) Antihistamine Start: 08-04-2021 take 1 tablet by mouth every six hours as needed hydrOXYzine hcl 50 MG tablet Take 1 tablet by mouth every 6 hours as needed for Anxiety for up to 20 doses. 20 tablet 0 08/04/2021 Active imiquimod 50 mg/ml topical cream (4 sources) Start: 04-03-2025 Imiquimod 5 % cream in packet Active 1 NMA TOPICAL .COMPLEX 12 1 April 03, 2025 12:00am 1 applic topical 3 times per week up to 16 weeks; Multivitamin tablet (4 sources) Start: 04-03-2025 Multivitamin tablet Active 1 {tbl} PO EVERY MORNING April 03, 2025 12:00am Hytop (Nk) (2 sources) Start: 11-24-2024 Hytop (Nk) Active November 24, 2024 1:00am norethindrone acetate 5 mg oral tablet (2 sources) Start: 04-08-2025 Norethindrone Acetate 5 mg tablet Active 5 mg PO .COMPLEX 45 0 April 08, 2025 12:00am 5 mg PO tid until bleeding stops X 24 hr then bid to finish Rx Testosterone 25 mg pellet (4 sources) Start: 04-03-2025 Testosterone 25 mg pellet Active mg IMPLANT April 03, 2025 12:00am Completed/Discontinued Medications Medication Drug Class(es) Dates Sig (Normalized) Sig (Original) albuterol 0.83 mg/ml inhalation solution (1 source) beta2-Adrenergic Agonist Start: 08-04-2021 End: 08-04-2021 albuterol (PROVENTIL) (2.5 MG/3ML) 0.083% inhalation solution 1.25 mg Start: 08-04-2021 End: 08-04-2021 albuterol (PROVENTIL) (2.5 M G/3ML) 0.083% inhalation solution 1.25 mg amoxicillin 500 mg oral tablet (6 sources) Penicillin-class Antibacterial Start: 09-06-2024 End: 10-25-2024 take 1 tablet by mouth three times daily Amoxicillin 500 mg tablet Discontinued 500 mg PO THREE TIMES A DAY 30 0 September 06, 2024 1:00am October 25, 2024 12:31pm loratadine 10 mg oral tablet (6 sources) Start: 03-21-2024 End: 10-25-2024 take 1 tablet by mouth once daily Loratadine (Allergy Relief (Loratadine)) 10 mg tablet Discontinued 10 mg PO DAILY March 21, 2024 12:00am October 25, 2024 12:31pm metroNIDAZOLE (3 sources) Nitroimidazole Antimicrobial Start: 04-05-2025 End: 04-10-2025 Metronidazole 0.75 % (37.5mg/5 gram) gel Discontinued 1 NMA VAGINAL daily 70 5 0 April 05, 2025 12:00am April 09, 2025 12:00am April 10, 2025 12:06am at bedtime Start: 04-05-2025 Metronidazole 0.75 % (37.5mg/5 gram) gel Active 1 NMA VAGINAL daily 70 5 0 April 05, 2025 12:00am April 09, 2025 12:00am at bedtime nitrofurantoin, macrocrystals 25 mg / nitrofurantoin, monohydrate 75 mg oral capsule (12 sources) Nitrofuran Antibacterial Start: 2024 End: 03-21-2024 take 1 capsule by mouth every twelve hours at mealtime Nitrofurantoin Monohyd/M-Cryst 100 mg capsule Discontinued 1 NMA PO Q12H 14 7 0 2024 12:00am March 22, 2024 12:00am March 21, 2024 10:57am administer with a meal/food; swallow whole; do not open, crush, dissolve , or chew Start: 03-07-2024 End: 03-12-2024 take 1 capsule by mouth every twelve hours at mealtime Nitrofurantoin Monohyd/M-Cryst (Macrobid) 100 mg capsule Discontinued 100 mg PO Q12H 10 5 0 March 07, 2024 12:00am March 11, 2024 12:00am March 12, 2024 12:06am must administer with a meal/food phenazopyridine hydrochloride 100 mg oral tablet (19 sources) Start: 03-07-2024 End: 03-21-2024 take 1 tablet by mouth three times daily as needed Phenazopyridine 100 mg tablet Discontinued 100 mg PO THREE TIMES A DAY as needed March 07, 2024 6:12am March 21, 2024 10:57am Start: 10-30-2023 End: 11-01-2023 take 1 tablet by mouth three times daily at mealtime Phenazopyridine (Pyridium) 100 mg tablet Discontinued 100 mg PO after meals 6 2 0 October 30, 2023 1:00am October 31, 2023 1:00am November 01, 2023 1:04am Take 3 times a day with meals. Do not take longer than 2 days. Will turn urine bright orange/red color. microencapsulated potassium chloride 20 meq extended release oral tablet (1 source) Start: 08-04-2021 End: 08-04-2021 potassium chloride (K-DUR) tablet ER 20 mEq Start: 08-04-2021 End: 08-04-2021 potassium chloride (K-DUR) t ablet ER 20 mEq Problems Active Problems Problem Classification Problem Date Documented Date Episodic/Chronic Immunizations and screening for infectious disease (3 sources) At risk of sexually transmitted infection ; Translations: [Contact with and (suspected) exposure to infections with a predominantly sexual mode of transmission] 07-15-2025 Episodic Menopausal disorders (1 source) Unspecified menopausal and perimenopausal disorder; Translations: [Unspecified menopausal and perimenopausal disorder] Onset: 03-14-2025 Chronic Menopausal disorders (6 sources) Long-term current use of testosterone replacement therapy; Translations: [Hormone replacement therapy] 04-03-2025 Episodic Comment on above: pellet started with naturopathic 01/2025 Menstrual disorders (3 sources) Irregular periods; Translations: [Irregular menstruation, unspecified] 10-25-2024 Chronic Other circulatory disease (1 source) Elevated blood-pressure reading without diagnosis of hypertension; Translations: [Elevated blood-pressure reading, without diagnosis of hypertension] 04-24-2025 Episodic Other diseases of bladder and urethra (7 sources) Spasm of bladder; Translations: [Other specified disorders of bladder] 10-30-2023 Chronic Other diseases of bladder and urethra (1 source) Other specified disorders of bladder; Translations: [Other specified disorders of bladder] 10-30-2023 Chronic Other female genital disorders (8 sources) Abnormal uterine bleeding; Translations: [Abnormal uterine and vaginal bleeding, unspecified] 04-03-2025 Chronic Comment on above: ultrasound. May try aygestin if normal Other female genital disorders (1 source) Abnormal uterine and vaginal bleeding, unspecified; Translations: [Abnormal uterine and vaginal bleeding, unspecified] Onset: 04-12-2025 Chronic Other female genital disorders (3 sources) Vaginal discharge; Translations: [Other specified noninflammatory disorders of vagina] 04-03-2025 Episodic Other female genital disorders (1 source) Other specified noninflammatory disorders of vagina; Translations: [Other specified noninflammatory disorders of vagina] Onset: 04-07-2025 Episodic Other non-traumatic joint disorders (5 sources) Shoulder pain; Translations: [Pain in unspecified shoulder] 03-01-2025 Episodic Other upper respiratory disease (2 sources) Nasal congestion; Translations: [Nasal congestion] Onset: 06-03-2022 Episodic Residual codes; unclassified (2 sources) Other specified personal risk factors, not elsewhere classified; Translations: [Other specified personal risk factors, not elsewhere classified] Onset: 06-03-2022 Episodic Residual codes; unclassified (1 source) Accidental needle stick injury; Translations: [Contact with and (suspected) exposure to potentially hazardous body fluids] 04-24-2025 Episodic Thyroid disorders (10 sources) Thyroid nodule; Translations: [Nontoxic single thyroid nodule] Onset: 12-27-2024 11-24-2024 Chronic Comment on above: Patient is a 39-year -old female, euthyroid from an endocrine standpoint, who presents for surgical consultation related to a self discovered right thyroid nodule. Nodule was palpated incidentally while applying lotion to her neck. She is asymptomatic from any compressive symptomology. I reviewed with her the prevalence of thyroid nodules as well as their triage using the TI-RADS rating system. No rating was given by radiology for her exam, but in my independent review I rated her nodule at a TI-RADS 4. At this rating the nodule would have needed to have exceeded at least 1.5 cm in maximum diameter and at 2.6 to comfortably met this threshold so biopsy recommendation was extended to patient based on ACR criteria. Additionally, I described the procedure for FNA in detail. Patient was readily receptive of this recommendation the procedure was undertaken uncomplicated fashion during today's visit. Full details are given in the procedures section of this note. Thyroid disorders (6 sources) Mass of thyroid gland; Translations: [Disorder of thyroid, unspecified] 11-01-2024 Episodic Comment on above: on ultrasound Unclassified (1 source) Cough, unspecified; Translations: [Cough, unspecified] Onset: 06-03-2022 Viral infection (7 sources) Genital warts; Translations: [Anogenital (venereal) warts] 04-03-2025 Episodic Comment on above: aldara Rx Past or Other Problems Problem Classification Problem Date Documented Da te Episodic/Chronic Diabetes mellitus without complication (3 sources) Increased glucose level; Translations: [Other abnormal glucose] Onset: 08-04-2021 Episodic Fluid and electrolyte disorders (3 sources) Hypokalemia; Translations: [Hypokalemia] Onset: 08-04-2021 Episodic Other circulatory disease (1 source) Other specified symptoms and signs involving the circulatory and respiratory systems; Translations: [Other specified symptoms and signs involving the circulatory and respiratory systems] Onset: 09-06-2024 Episodic Other lower respiratory disease (2 sources) Chest pain on breathing; Translations: [Chest pain on breathing] Onset: 11-15-2021 Episodic Other lower respiratory disease (1 source) Chest pain on breathing; Translations: [Chest pain on breathing] Onset: 08-04-2021 Episodic Other screening for suspected conditions (not mental disorders or infectious disease) (2 sources) Encounter for screening mammogram for malignant neoplasm of breast; Translations: [Encounter for screening for other suspected endocrine disorder] Onset: 11-10-2024 Episodic Unclassified (1 source) Cough, unspecified; Translations: [Cough, unspecified] Onset: 06-03-2022 Unclassified (6 sources) Patient condition finding 03-20-2024 Results Test Name Value Interpretation Reference Range Facility Serum hepatitis B virus surf hermelinda antibody detectionOrdered By: Jamari Flores on 04-24-2025 HBV surface Ab Ql (S) REAC [facility] Comment on above: <8.5 mIU/mL: Non-Watson ctive8.5<= x <11.5 mIU/mL: Indeterminate>=11.5 mIU/mL: Reactive Non Reactive: Inconsistent with immunity less than <10 mIU/mL Reactive: Consistent with immunity greater than or equal to 10 mIU/mL Genital Culture Comprehensiv jacobo 04-07-2025 VAC Reason for Exam: Vaginal odor No yeast or Neisseria isolated. Streptococcus group B Amount Growth 1+ G. vaginalis (Presumptive) G. vaginalis (Presumptive) Normal [facility] Comment on above: Performed By: #### L 7000.1800, M100.3200, M1 #### [facility] [address] [place], [place], [id number] Chlamydia/GC MEERA aptimaon CHLAMY,NUC ACID Negative Normal Negative [facility] Comment on above: Performed By: #### L 7000.1800, M100.3200, M100 #### [facility] [address] [place], [address] GC BY NUC ACID Negative Normal Negative [facility] Comment on above: Result Comment: Perf ormed at: =G - [facility] [address] [place] [id number] Business Strategy Manager: Delmy [place] MD, Phone: [phone] Performed By: #### L 7000.1800, M100.3200, M100.2000 #### [facility] [address] [place], [address] Pelvic w/ Transvaginalon Pelvic w/ Transvaginal [facility] [address] [place] [address] Pelvic w/ Transvaginal MR#: [id number] Acct: [id number] Name: RAÚL CABRERA Rep #: [id number] : 1985 F 40 From: Иван Kruse MD PCP: Dr. Leda Wright MD Status: REG CLI Study: Pelvic w/ Transvaginal Date of Exam: 04/06/25 Exam# [id number] Ordering Dr: Carlee Tai WELLFIELD TECHNICIAN WELLFIELD TECHNICIAN -C PROCEDURE: PELVIC W/ TRANSVAGINAL 04/06/2025 REASON FOR EXAM: AUB TECHNIQUE: PELVIC W/ TRANSVAGINAL COMPARISON: None. FINDINGS: Measurements: Uterus: 10.5 x 5.2 x 5.9 cm for volume of 165.9 mL Endometrial Thickness: 0.7 cm Right Ovary: 4.2 x 2.9 x 3.3 cm for volume of 20.5 mL . Left Ovary: 2.6 x 3.0 x 2.6 cm for volume of 10.7 mL. Uterus: Anteverted. Normal contour echotexture. Heterogeneous lesion near the uterine fundus measuring 1.2 x 1.0 x 1.2 cm. Endometrium: Normal echotexture. Trace fluid in the cervical canal. Right ovary: Multiple prominent follicles, approximately 10 on a single image. Left ovary: Questionable hypoechoic avascular lesion near the periphery measuring less than 1 cm could represent a corpus luteum or hemorrhagic cyst (O-RADS 1 or 2), and does not require follow-up. Cul-de-sac: Minimal free fluid in the pelvis within normal limits. Color Doppler: Normal color flow doppler signal at both ovaries. US/Pelvic w/ Transvaginal IMPRESSION: 1. Polycystic morphology of the right ovary. Correlate for clinical evidence of PCOS. 2. Leiomyoma at the uterine fundus measuring 1.2 cm. Reading Location: [id number] CC: LINK Tai; Dr. Leda Wright MD Explosive Operator Fuse: Signed Normal [facility] Chlamydia trachomatis rRNA d etection by probe and target amplification methodOrdered By: Carlee Tai on 04-03-2025 C. trachomatis rRNA MEERA+probe Ql (Unsp spec) Negative Negative [facility] Genital cultureOrdered By: Augustine Tai on 04-03-2025 Source specific culture G. vaginalis (Presumptive) Abnormal [facility] Gram Stainon 04-03-2025 GS Reason for Exam: Vaginal odor Gram Stain 4+ Gram variable joan No White Blood Cells No Gram negative diplococci Score = 8 Interpretation: 0-3 Normal, 4-6 Intermediate, 7-10 Positive BV Normal [facility] Comment on above: Performed By: #### L 7000.1800, M100.3200, M100.2000 #### [facility] [address] [place] [address], [id number] Gram stainOrdered By: Carlee Tai on 04-03-2025 Microscopic observation Gram stain Nom (Unsp spec) [facility] Neisseria gonorrhoeae nuclei c acid detection by amplified probe techniqueOrdered By: Carlee Tai on 04-03-2025 N. gonorrhoeae DNA MEERA+probe Ql (Unsp spec) Negative Negative [facility] Comment on above: Performed at: =[address] [id number] Director: Delmy Lawson MD, Phone: [phone] No Panel InformationOrdered By: Carlee Tai on 04-03-2025 POC Trichomonas (Rapid) Negative [facility] POC Bacterial Vaginitis (Rapid) Negative [facility] Paste Mixer Liquid Office Visit Reporton 04-03-2025 Paste Mixer Liquid Office Visit Report [facility], [address] [place] [address] OFFICE VISIT Date of Service: 04/03/25 MR#: [id number] Acct: [id number] Name: RAÚL CABRERA Rep #: [id number] : 1985 Provider: LINK rodriguez Age/Sex: 40/F Location[place] [facility] [place] Status: Signed Intake Vital Signs 11/24/24 13:01 04/03/25 11:35 04/03/25 11:44 Height 5 ft 10 in 5 ft 10 in 5 ft 10 in Weight: 156 lb 4 oz BMI 22.4 BP 118/80 Intake Visit Reasons: possible BV *copay $20 Chief Complaint: possible BV Flow Trader Required: No Is patient in pain?: No Allergies No Known Allergies Allergy (Verified 04/03/25 11:35) Medications ???Medication ???Instructions ???Recorded ???Confirmed ???Type boric acid 600 mg vaginal mg vaginal 04/03/25 04/03/25 Histo ry suppository cholecalciferol (vitamin D3) 50 50 mcg PO QDAY 04/03/25 04/03/25 H istory mcg (2,000 unit) capsule doxycycline hyclate 50 mg capsule 50 mg PO QDAY 04/03/25 04/03/25 H istory imiquimod 5 % topical cream packet 1 applic topical .COMPLEX #12 ea 04/03/25 04/03/25 Rx multivitamin 1 tab PO QAM 04/03/25 04/03/25 His tory testosterone 25 mg implant pellet mg implant 04/03/25 04/03/25 Hist ory Is last menstrual period known: Yes Last Menstrual Period: 03/22/25 Post menopausal: No Patient : No : No PFSH Medical History Situational anxiety Allergies No active medical problems Surgical History History of surgical procedure Steele teeth extracted Family History Father Myocardial infarction, Onset Age: 48 Heart disease CVA (cerebral vascular accident), Onset Age: 60 AAA (abdominal aortic aneurysm) Afib Sister Autoimmune disease lupus Mother Thyroid disorder Social History adopted: No household members: children number of children: 1 current occupational status: employed 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 She currently has vaginal odor with discharge. New sexual partner. No contraception. ok if occurred. Has new skin lag on labia X 3 months. She also continues to have irregular vaginal spotting different from menses. Seems to occur postcoitally and after BM. Light in amount. This has been ongoing almost 1 year. Patient did start testosterone pellets 3 months ago for fatigue and hair loss per naturopathic provider. Female Reproductive History Last Menstrual Period: 03/22/25 Questions: metorrhagia: No, sexually active: Yes, dyspareunia: No and PCB: No ROS Const Constitutional: Reports system reviewed and no additional complaints, except as documented Eyes Eyes: Reports system reviewed and no additional complaints, except as documented GI GI: Denies abdominal pain or change in bowel habits : Reports as per HPI Exam Const General: cooperative, no acute distress, well developed and well groomed Nutritional Appearance: well nourished Orientation: oriented x3 External Female Exam: normal appearance of the urethra and lesion (edge of left labia minora 5mm wartlike lesion) Urethra: normal appearance of the urethra Speculum Exam - Vagina: abnormal vaginal discharge yellow Speculum Exam - Cervix: normal appearance of the cervix (smooth, nonfriable) Bimanual Exam- Vagina Uterus: normal bimanual exam, uterine size normal and non-tender Bimanual Exam- Adnexa, other: normal adnexae, no masses and non-tender Coding Level of Care Code Off vis,est,level 4 Diagnoses Abnormal uterine bleeding (AUB) N93.9 Genital warts A63.0 Vaginal discharge N89.8 Long-term current use of testosterone replacement therapy Z79.890 Possible exposure to STD Z20.2 Assessment and Plan Assessment and Plan (1) Abnormal uterine bleeding (AUB): Status: Acute Comment: ultrasound. May try aygestin if normal (2) Genital warts: Status: Acute Comment: aldara Rx (3) Vaginal discharge: (4) Long-term current use of testosterone replacement therapy: Status: Acute Comment: pellet started with naturopathic 01/2025 (5) Possible exp (more content not included)... Normal [facility] Sex Hormone-binding Globulin on 03-14-2025 SHBG 54.3 nmol/L Normal 24.6-122.0 [facility] Comment on above: Result Comment: Perf ormed at: - [facility] [id number] Business Strategy Manager: Srini Sexton PhD, Phone: [phone] Performed at: - [facility] [id number] Business Strategy Manager: Rosalina Garcia MD, Phone: [phone] Performed By: #### L 7000.1800, M100.3200, #### [facility] [address] [place], [address] Testosterone, Total / Freeon 03-14-2025 TESTOSTER,FREE 5.27 ng/dL Abnormal 0.10-0.85 [facility] Comment on above: Order Comment: N Performed By: #### L 7000.1800, M100.320, #### [facility] [address] [place], [address] TESTOSTER,TOTAL 202 ng/dL High 4-50 [facility] Comment on above: Order Comment: N Performed By: #### L 7000.1800, M100.320, M1 #### [facility] [address] [place], [address] TESTOSTERONE,%F 2.61 Normal 0.50-2.80 [facility] Comment on above: Order Comment: N Performed By: #### L 7000.1800, M100.3200, M100.2000 #### [facility] [address] [place], [place], [address] Estradiolon 03-08-2025 ESTRADIOL 311.0 pg/mL Normal [facility] Comment on above: Result Comment: FEMA LES ADULT FEMALE: Premenopausal: 15-350 pg/mL(E2 levels vary widely through the menstrual cycle) Postmenopausal: <10 pg/mL MARK STAGES MEAN AGE REFERENCE RANGES Stage I(>14 days and prepubertal) 7.1 years Undetectable-20 pg/mLL Stage II 10.5 years Undetectable-24 pg/mL Stage III 11.6 years Undetectable-60 pg/mL Stage IV 12.3 years 15-85 pg/mL Stage V 14.5 years 15-350 pg/mL Puberty onset (transition from Mark stage I to Mark stage II) occurs for girls at a median age of 10.5 (/- 2) years. There is evidence that it may occur up to 1 year earlier in obese girls and in girls. Progression through Mark stages is variable. Mark stage V (adult) should be reached by age 18. Performed By: #### L 0.1800, M100.3199, #### [facility] [address] [place], [place], [id number] Follicle Stimulating Hormone on 03-08-2025 FSH 4.9 mIU/mL Normal [facility] Comment on above: Result Comment: FEMA LE: Follicular: 1.4 - 18.1 mIU/mL Midcycle: 3.4 - 33.4 mIU/mL Luteal: 1.5 - 9.1 mIU/mL Post Menopause: 23.0 - 116.3 mIU/mL MALE: 1.4 - 18.1 mIU/mL Performed By: #### L 0.1800, M100.320, #### [facility] [address] [place], [place], [id number] Free testosterone percentage on 03-08-2025 Testosterone Free/Testosterone.total [Mass fraction] 2.61 % 0.50-2.80 [facility] Serum or plasma estradiol me asurement after follitropin dose (mass/volume)on 03-08-2025 E2 post dose follitropin [Mass/Vol] 311.0 pg/mL [facility] Comment on above: FEMALES ADULT FEMALE : Premenopausal: 15-350 pg/mL(E2 levels vary widely through the menstrual cycle) Postmenopausal: <10 pg/mL MARK STAGES MEAN AGE REFERENCE RANGES Stage I(>14 days and prepubertal) 7.1 years Undetectable-20 pg/mLL Stage II 10.5 years Undetectable-24 pg/mL Stage III 11.6 years Undetectable-60 pg/mL Stage IV 12.3 years 15-85 pg/mL Stage V 14.5 years 15-350 pg/mL Puberty onset (transition from Mark stage I to Mark stage II) occurs for girls at a median age of 10.5 (/- 2) years. There is evidence that it may occur up to 1 year earlier in obese girls and in girls.Progression through Mark stages is variable. Mark stage V (adult) should be reached by age 18. Serum or plasma free testost erone measurement (mass/volume)on 03-08-2025 Testosterone Free [Mass/Vol] 5.27 ng/dL High 0.10-0.85 [facility] Serum or plasma sex hormone binding globulin measurement (moles/volume)on 03-08-2025 Sex hormone binding globulin [Moles/Vol] 54.3 nmol/L 24.6-122.0 [facility] Comment on above: Performed at: [employer] [facility] [employer] [address] [id number] Director: Srini Sexton PhD, Phone: [phone] at: [facility] [id number] Director: Rosalina Garcia MD, Phone: [phone] Testosterone, totalon 2024 Testosterone [Mass/Vol] 202 ng/dL High 4-50 [facility] Non-gynecologic cytology rep ortOrdered By: Nathaniel Ren on 11-30-2024 Study report [facility] Other Phone: Special Stain Group IIon Special Stain Group II ----- ---- Patient Age/Sex Location Account Attending Physician ---- RAÚL CABRERA 39/F LAB[facility] [id number] Dr. Franck Dupont MD ---- Specimen: [id number] Received: 11/24/24 Status: MAYRA Cornejolatonya Num: [id number] Spec Type: Fluid Subm Dr: Dr. Franck Dupont MD HEADER OPERATION: Fine needle aspiration of right thyroid nodule PRE-OP DIAGNOSIS: Right thyroid nodule TISSUE SUBMITTED: A- Right mid thyroid nodule fluid, B- Right mid thyroid nodule slides ---- DIAGNOSIS CYTOLOGY A. Right mid thyroid nodule, 2.6 cm, cytology and cell block:Benign follicular noduleOccasional nuclear grooves and microfollicles are presentB. Right mid thyroid nodule, 2.6 cm, cytology:Benign follicular noduleFollicular cells and some colloid are presentVasyl Ren MD, 11/30/2024 CYTOLOGY STUDY Slides are reviewed. CYTOLOGY GROSS A. Received is 30 ml of fluid labeled with the patient's name and and designated per the requisition as Right mid thyroid nodule. Submitted for cytology preparation including cell block. B. Received are 4 smears labeled with the patient's name and designated per the requisition as Right mid thyroid nodule. Submitted for staining. Mr 11/24/2024 CPT: 13531d9,47135 , TC:5 Signed (signature on file) Dr. Nathaniel Ren MD 11/30/24 1115 ---- Normal [facility] Comment on above: Performed By: #### P SSII #### [facility] [address] [place] [address] [place], [address] Surgery Visit Reporton 11-24 Surgery Visit Report [facility] [address] [place] [address] OFFICE VISIT Date of Service: 11/24/24 MR#: [id number] Acct: [id number] Name: RAÚL CABRERA Rep #: [id number] : 1985 Provider: Dr. Franck garcia MD Age/Sex: 39/F Location: [facility] Status: Signed Intake Vital Signs 10/25/24 11:31 11/24/24 13:01 Height 5 ft 10 in 5 ft 10 in Weight: 167 lb 2 oz BMI 24.0 BP 132/86 H Blood Pressure Location Rt brachial Position Sitting Respiration 18 Pulse 68 Pulse Source Monitor Temp 97.5 F L Temp Source Temporal Pulse Oximetry (%) 100 Oxygen Delivery Method room air Intake Visit Reasons: THYROID NODULE Chief Complaint: thyroid nodule Is patient in pain?: No Allergies No Known Allergies Allergy (Verified 11/24/24 13:02) Medications ???Medication ???Instructions ???Recorded ???Confirmed ???Type NK 11/24/24 11/24/24 History PFSH Medical History Situational anxiety Allergies No active medical problems Surgical History History of surgical procedure Steele teeth extracted Family History Father Myocardial infarction, Onset Age: 48 Heart disease CVA (cerebral vascular accident), Onset Age: 60 AAA (abdominal aortic aneurysm) Afib Sister Autoimmune disease lupus Mother Thyroid disorder Social History adopted: No household members: children number of children: 1 current occupational status: 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 They are referred for surgical consultation from [facility] as well as PCP, Dr. Wright. This was discovered by patient approximately 2 months ago she was rubbing some lotion into her neck. They do not experience difficulty with swallowing. They do not complain of a new cough. They do not appreciate new voice changes. They do not have a history of snoring/sleep apnea. Additionally, their weight has been stable and they do not have a history of weight gain/loss or an inability to lose despite intentional effort. There is a history of recent fatigue. Patient details this to state that she has insomnia issues where she awakens inexplicably. They also do have a history of cold intolerance and she specifically describes her hands as being like icicles. Other symptoms include: Pertinent positives palpitations that are perhaps a little worse in the last 2 to 3 months as well as some hair loss that has been particularly evident in the shower. Pertinent negatives include no anxiety or depression, no abnormal GI habits, no abnormal sweating. They do have a family history of thyroid disorders and shared that their mother was initially diagnosed with hyperthyroidism that was later diagnosed as hypothyroidism and ultimately required a partial thyroidectomy. She states she is unaware of any thyroid nodularity or concern for thyroid cancer. There is no history of prior radiation exposure. Previous work-up has included thyroid ultrasound. This study was performed on 10/30/2024 and showed a right thyroid lobe measuring 5.0 x 1.8 x 1.6 cm. Within this lobe radiology identified a dominant nodule measuring 2.6 x 2.2 x 1.3 cm with internal vascularity and a hypoechoic/solid appearance. No TI-RADS rating was given. The left thyroid lobe measured 3.8 x 1 point x 0.7 cm. Within this lobe radiology identified two 8 mm nodules with a solid appearance and then a cystic appearance, respectively. An FNA has not been performed was recommended for patient's right thyroid nodule. Other tests include: TSH: 1.93, free T4: 0.86, free T3: 2.6, anti-TPO antibodies: Less than 9 (10/25/2024) ROS General General: Yes fatigue; No weight change, appetite, colon cancer, breast cancer or weakness HEENT HEENT: Yes swollen glands; No difficulty swallowing, eye injury, eye surgery or hoarseness Endo Endocrine: No thyroid disease, diabetes mellitus, thyroid cancer, Hair loss, heat intolerance or cold intolerance Skin Skin: No rash or changing moles Cardio Cardiovascu (more content not included)... Normal [facility] SCRN MAMM (CAD)W/VICTORIAIsabel Montaño n 10-30-2024 SCRN MAMM (CAD)W/VICTORIA HUMPHREYAT [facility] Imaging Services [address] [place] [id number] SCRN MAMM (CAD)W/VICTORIA PATEL MR#: [id number] Acct: [id number] Name: RAÚL CABRERA Rep #: [id number] : 1985 F 39 From: Gillian Braun MD PCP: Dr. Leda Wright MD Status: REG CLI Study: SCRN MAMM (CAD)W/VICTORIA BILAT Date of Exam: 10/21 Exam# [id number] Ordering Dr: Yudith Villanueva PROCEDURE: SCRN MAMM (CAD)W/VICTORIA BILAT REASON FOR EXAM: F, Age 39 y/o, presents for annual screening mammogram. No family history of breast cancer. TECHNIQUE: Bilateral screening digital breast tomosynthesis with 2D and 3D images. Computer aided detection. COMPARISON: 10/15/2023 FINDINGS: The breasts are extremely dense which lowers the sensitivity of mammography. The mammogram demonstrates that the patient has dense breasts. Supplemental screening with whole breast ultrasound may be considered for further evaluation. No suspicious masses, areas of developing architectural distortion, or suspicious calcifications. BI/SCRN MAMM (CAD)W/VICTORIA BILAT IMPRESSION: There is no mammographic evidence of malignancy in either breast. BI-RADS 1: NEGATIVE. RECOMMEND ANNUAL MAMMOGRAPHIC SCREENING. Follow-up code: Routine Follow-up The patient will be notified of the results by letter. Reading Location: [facility] CC: LINK Villanueva; Dr. Leda Wright MD Explosive Operator Fuse: Signed Normal [facility] Thyroidon 10-30-2024 Thyroid [facility] Imaging Services [address] [place] [id number] Thyroid MR#: [id number] Acct: [id number] Name: RAÚL CABRERA Rep #: [id number] : 1985 F 39 From: Marco A de leon MD PCP: Dr. Leda Wright MD Status: REG CLI Study: Thyroid Date of Exam: 10/30/24 Exam# [id number] Ordering Dr: Yudith Villanueva PROCEDURE: THYROID REASON FOR EXAM: Thyroid nodules. TECHNIQUE: Thyroid ultrasound COMPARISON: None. FINDINGS: Right thyroid lobe measures 5 cm x 1.8 cm x 1.6 cm. Left thyroid lobe measures 3.8 cm x 1.2 cm x 0.7 cm. Isthmus thickness is. Thyroid Size: Mild enlargement of the right lobe of the thyroid. Background Echotexture: Normal Thyroid Nodules: There is a dominant 2.6 cm x 2.2 cm 1.3 cm hypoechoic/solid nodule with internal vascularity. Biopsy recommended. There is evidence of an 8 mm x 5 mm x 4 mm complex nodule with internal vascularity in the upper pole of the left lobe as well as an 8 mm x 6 mm x 4 mm cystic nodule in the inferior aspect of the left lobe of the thyroid. US/Thyroid IMPRESSION: Mildly enlarged right lobe of the thyroid gland with a dominant complex mass in the midportion of the right lobe of the thyroid. Biopsy recommended. Reading Location: [id number] CC: [place]LL[place] TECHNICIANKenia Villanueva; Dr. Leda Wright MD Explosive Operator Fuse: Signed Normal [facility] Thyroid Peroxidase ABon 02-0 -2024 THYR PEROX AB < 9 Normal 0-34 [facility] Comment on above: Result Comment: Perf ormed at: [facility] [address] [id number] Business Strategy Manager: Srini Sexton PhD, Phone: [phone] Performed By: #### L 7000.1800, M100.3200, M1.1999 #### [facility] [address] [place], [address] Direct serum free thyroxine (FT4) measurementOrdered By: Yudith Villanueva on 10-25-2024 Free T4 [Mass/Vol] 0.86 ng/dL 0.76-1.46 [facility] Free T3on 10-25-2024 Free T3 [Mass/Vol] 2.6 pg/mL Normal 2.18-3.98 [facility] Comment on above: Performed By: #### L 506.0400, L501.9520, L3300.6900, L501.69499 #### [facility] [place], [address] Free S7Fbfqway By: Yudith chandler on 10-25-2024 Free Triiodothyronine (T3) pg/dL 2.6 pg/mL 2.18-3.98 [facility] Paste Mixer Liquid Office Visit Reporton 10-25-2024 Paste Mixer Liquid Office Visit Report [facility], [address] [place] [address] OFFICE VISIT Date of Service: 10/25/24 MR#: [id number] Acct: [id number] Name: RAÚL CABRERA Rep #: [id number] : 1985 Provider: LINK Mclean Age/Sex: 39/F Location: [facility] Status: Signed Intake Vital Signs 03/21/24 11:00 09/06/24 10:30 10/25/24 11:11 10/25/24 11:31 Height 5 ft 10 in 5 ft 10 in 5 ft 10 in 5 ft 10 in Weight: 169 lb 167 lb 8 oz BMI 24.2 24.0 BP 120/76 138/85 H Blood Pressure Location Lt brachial Position Sitting Respiration 14 Pulse 74 Pulse Source Monitor Temp 99 F Pulse Oximetry (%) 99 Oxygen Delivery Method room air 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) Chief Complaint: Annual Is patient in pain?: No Allergies No Known Allergies Allergy (Verified 10/25/24 11:31) PFSH Medical History Situational anxiety Allergies No active medical problems Surgical History History of surgical procedure Steele teeth extracted Family History Father Myocardial infarction, Onset Age: 48 Heart disease CVA (cerebral vascular accident), Onset Age: 60 AAA (abdominal aortic aneurysm) Afib Sister Autoimmune disease lupus Mother Thyroid disorder Social History adopted: No household members: children number of children: 1 current occupational status: employed 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 She reports she feels like she may have a thyroid nodule. She reports she noticed this about 3 weeks ago. She also reports hair loss; she constantly feels cold. She reports her menses have been irregular and heavier x about a year. Her last menses ended a week and a half ago and reports today she is spotting again. Last PAP: 2023 at [facility] per patient; reports neg/neg. History of abnormal PAP: no Last mammogram: 2023; normal History of abnormal mammogram: no Colon cancer screening: greater than 10 years. Other preventative health care screenings: Dr. Wright, PCP Female Reproductive History Last Menstrual Period: 10/25/24 Cycle Length: 21-35 Bleeding Duration: 5 Questions: metorrhagia: No, sexually active: Yes (condoms), dyspareunia: No and PCB: No ROS Const Constitutional: Denies chills, fatigue, fever(s), headache(s) or weight loss Eyes Eyes: Denies change in vision ENT ENT: Denies dizziness Cardio Card: Denies palpitations Resp Resp: Denies cough GI GI: Denies abdominal pain, constipation or nausea : Denies difficulty voiding, dysuria, hematuria, pelvic pain, prolapse symptoms, urinary incontinence, vaginal discharge, vaginal dryness, vaginal odor or vaginal pruritus Skin Skin/Breast: Denies alopecia or rash Neuro Neuro: Denies dizziness Psych Psych: Denies anxiety or depression Endo Endo: Reports cold intolerance and other (thyroid nodule--see HPI); Denies excessive sweating or heat intolerance Exam Const General: cooperative, healthy appearing, comfortable, no acute distress, well groomed and well hydrated Nutritional Appearance: well nourished Orientation: alert, awake and oriented x3 HENMT Head: normal to inspection and normocephalic Ears: hearing grossly normal bilaterally and external ears normal Nose: external nose normal Face and sinus: normal facial exam Eyes General: appearance normal, both eyes and all related structures Neck Neck: normal visual inspection, full ROM and no lymphadenopathy Thyroid: other (single nodule to right) Chest Chest palpation inspection: normal inspection of the chest Breast inspection: normal inspection of the breasts and normal inspection of the axillae Breast palpation: normal palpation of the breasts, normal palpation of the axillae and no axillary lymphadenopathy Resp Effort Inspection: normal respiratory effort, able to speak in complete sentences and symmetric chest movement GI Inspection: normal to inspection Palpation: soft and no hepatosplenomegaly General: bladder normal to palpation External Female Exam: normal external appear (more content not included)... Normal [facility] T4 Free Directon 10-25-2024 T4 FREE DIRECT 0.86 ng/dL Normal 0.76-1.46 [facility] Comment on above: Performed By: #### L 7000.1800, M100.3200, M100.1999 #### [facility] [address] [place], [address] TPO Ab QnOrdered By: Yudith iVllanueva on 10-25-2024 Thyroid Peroxidase Antibodies < 9 IU/mL 0-34 [facility] Comment on above: Performed at: [address] [id number] Director: Srini Sexton PhD, Phone: [phone] TSH QnOrdered By: Yudith Mclean on 10-25-2024 Thyroid Stimulating Hormone (TSH) 1.930 uIU/mL 0.358-3.740 [facility] Thyroid Stim Hormone (TSH)on 10-25-2024 TSH 1.930 uIU/mL Normal 0.358-3.740 [facility] Comment on above: Performed By: #### L 506.0400, L501.9520, L3300.6900, L501.33292 #### [facility] [address] [place], [address] Laboratory - Microbiology an d Antimicrobial susceptibilityon 09-06-2024 SARS-CoV-2 (COVID-19) RNA MEERA+probe Ql (Unsp spec) Not detected [facility] No Panel Informationon 09-06 POC Nasal Swab Influenza A,B Not detected [facility] POC Nasal Swab RSV Not detected [facility]gent Care Visit Reporton 1 11-07-2023 Urgent Care Visit Report [facility] [address], [address] [place] [address] OFFICE VISIT Date of Service: 09/06/24 MR#: [id number] Acct: [id number] Name: RAÚL CABRERA Rep #: [id number] : 1985 Provider: FREDI Sharpe Age/Sex: 39/F Location: [facility] Status: Signed Intake Vital Signs 03/21/24 11:00 09/06/24 10:30 Height 5 ft 10 in 5 ft 10 in Weight: 169 lb 165 lb 6 oz BMI 24.2 23.7 BP 120/76 122/82 H Blood Pressure Location Lt brachial Position Sitting Sitting Respiration 14 Pulse 74 84 Pulse Source Monitor Temp 99 F 98.3 F Temp Source Temporal Oral Pulse Oximetry (%) 99 99 Oxygen Delivery Method room air room air Intake Visit Reasons: Upper respiratory Accompanied by: Self Allergies No Known Allergies Allergy (Verified 09/06/24 10:30) Medications ???Medication ???Instructions ???Recorded ???Confirmed ???Type loratadine 10 mg tablet (Allergy 10 mg PO DAILY 03/21/24 09/06/24 History Relief (loratadine)) amoxicillin 500 mg tablet 500 mg PO TID #30 tabs 09/06/24 09/06/24 Rx Nurse's Note: Patient thinks she has a URI going on for 5 days and chest congestion. [facility] Medical History (Updated 03/21/24 @ 11:[address] Leda Wright MD) Situational anxiety Allergies No active medical problems Surgical History (Updated 03/21/24 @ 11:[address] Leda Wright MD) History of surgical procedure Steele teeth extracted Family History (Updated 03/21/24 @ 11:[address] Leda Wright MD) Father Myocardial infarction, Onset Age: 48 Heart disease CVA (cerebral vascular accident), Onset Age: 60 AAA (abdominal aortic aneurysm) Afib Sister Autoimmune disease lupus Mother Thyroid disorder Social History (Updated 03/21/24 @ 11:[address] 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 pets and animals: Yes pets and animals: cat(s) and dog(s) sexually active: Yes Smoking Status: Former smoker quit date: 09/20/13 pack-years: 7 Tobacco: How many years used: 15 alcohol intake: current alcohol intake frequency: holidays/special occasions only substance use type: does not use caffeine: Yes (1-2) Type: coffee what type of physical activity do you participate in: running frequency: 3-4 times per week do you feel safe at home: Yes HPI HPI Details: RAÚL CABRERA, is a 39 F who presents to the office today for [facility] for approximately 5 day history of persistent fever (on day-1 only), along with persistent cough, chest congestion and forehead/facial pressure with purulent postnasal drip every morning (though admits clear postnasal drip throughout the day). Requesting POC screening Cepheid COVID-19 and influenza and RSV and results negative is also requesting an antibiotic. Patient notes no complaints of chest pain or shortness of breath or dyspnea on exertion. Several close contacts recently dx???d w/ similar URI complaints. No vowp-[id number] taken to assist. No other associated symptoms and no other alleviating/aggravatin g factors. ROS Const Constitutional: No other (As above) Exam Const General: cooperative, healthy appearing and no acute distress Orientation: alert, awake and oriented x3 HENMT Head: normal to inspection Ears: hearing grossly normal bilaterally, external ears normal, TM's normal bilaterally and EAC's normal Nose: external nose normal, nares normal, septum normal and clear nasal discharge Face and sinus: normal facial exam, bilateral frontal and maxillary sinuses tender, and face symmetric Mouth: oral mucosae normal, lip normal, tongue normal and oropharynx normal Throat: posterior oropharynx normal, tonsils normal, uvula midline and scant purulent postnasal drainage Eyes General: appearance normal, both eyes and all related structures Neck Neck: normal visual inspection, full ROM, no lymphadenopathy, no meningeal signs and supple Neck mass: No Thyroid: thyroid normal Lymphatic: no lymphadenopathy noted Chest Chest palpation inspection: normal inspection of the chest Resp Effort Inspection: normal respiratory effort, able to speak in complete sentences and cough Quality of cough: wet (nonproductive in office today) Auscultation: Bilateral: Clear to Auscultation Cardio Palpation: normal PMI Rate: tachycardic Rhythm: regular rhythm Heart Sounds: S1 normal, S2 normal, no gallops, no murmurs and no rubs Pulses: radial pulses present Skin General: no rashes or lesions noted Neuro General: patient alert, patient awake and patient oriented x3 Cognition: normal cognition Speech: speech normal Psych Appearance: grossly normal Mental Status: mental status grossly normal (more content not included)... Normal [facility] CBC, Employeeon 06-23-2024 Absolute Lymph 1.37 X10 3/uL Normal 0.83-4.51 [facility] Comment on above: Performed By: #### L 7000.1800, M100.3200, M1 #### [facility] [address] [place], [address] Absolute Neut 1.9 X10 3/uL Low 2.0-7.7 [facility] Comment on above: Performed By: #### L 7000.1800, M100.3200, M1 #### [facility] [address] [place], [address] Basophils/100 WBC (Bld) 1.0 % Normal 0-1 [facility] Comment on above: Performed By: #### L 7000.1800, M100.3200, M1 #### [facility] [address] [place], [address] Eosinophils/100 WBC (Bld) 3.4 % Normal 0-5 [facility] Comment on above: Performed By: #### L 7000.1800, M100.3200, M1 #### [facility] [address] [place], [address] Erythrocyte distribution width (RBC) [Ratio] 12.0 % Normal 11.6-14.6 [facility] Comment on above: Performed By: #### L 7000.1800, M100.3200, M1 #### [facility] [address] [place], [address] Hematocrit (Bld) [Volume fraction] 39.0 % Normal 37-47 [facility] Comment on above: Performed By: #### L 7000.1800, M100.3200, #### [facility] [address] [place], [address] Hemoglobin (Bld) [Mass/Vol] 12.9 g/dL Normal 12.0-15.0 [facility] Comment on above: Performed By: #### L 7000.1800, M100.3200, #### [facility] [address] [place], [address] Lymphocytes/100 WBC (Bld) 35.9 % Normal 19-41 [facility] Comment on above: Performed By: #### L 7000.1800, M100.3200, #### [facility] [address] [place], [address] MCH (RBC) [Entitic mass] 29.5 pg Normal 27.0-32.0 [facility] Comment on above: Performed By: #### L 7000.1800, M100.3200, M1 #### [facility] [address] [place], [address] MCHC (RBC) [Mass/Vol] 33.1 g/dL Normal 32-36 [facility] Comment on above: Performed By: #### L 7000.1800, M100.3200, #### [facility] [address] [place], [address] MCV (RBC) [Entitic vol] 89.2 fL Normal 81-99 [facility] Comment on above: Performed By: #### L 7000.1800, M100.3200, #### [facility] [address] [place], [address] Monocytes/100 WBC (Bld) 10.2 % High 0-10 [facility] Comment on above: Performed By: #### L 7000.1800, M100.3200, #### [facility] [address] [place], [address] Neutrophils/100 WBC (Bld) 49.2 % Normal 47-70 [facility] Comment on above: Performed By: #### L 0.1799, M100.320, #### [facility] [address] [place], [address] NRBC # 0.00 10 3/uL Normal 0-5 [facility] Comment on above: Performed By: #### L 7000.1800, M100.320, #### [facility] [address] [place], [address] Nucleated RBC (Bld) [#/Vol] 0 10*3/uL Normal 0-5 [facility] Comment on above: Performed By: #### L 7000.1800, M100.3200, #### [facility] [address] [place], [address] Platelet mean volume (Bld) [Entitic vol] 11.0 fL Normal 6.2-12.0 [facility] Comment on above: Performed By: #### L 7000.1800, M100.3200, #### [facility] [address] [place], [address] Platelets (Bld) [#/Vol] 251 10*3/uL Normal 150-450 [facility] Comment on above: Performed By: #### L 7000.1800, M100.3200, M1 #### [facility] [address] [place], [address] RBC (Bld) [#/Vol] 4.37 10*6/uL Normal 4.2-5.4 [facility] Comment on above: Performed By: #### L 7000.1800, M100.3200, M1 #### [facility] [address] [place], [address] RDW SD 39.1 fl Normal 35.1-43.9 [facility] Comment on above: Performed By: #### L 7000.1800, M100.3200, M1 #### [facility] [address] [place], [address] WBC (Bld) [#/Vol] 3.8 10*3/uL Low 4.4-11.0 [facility] Comment on above: Performed By: #### L 7000.1800, M100.3200, M1 #### [facility] [address] [place], [address] [employer] 4 Albumin [Mass/Vol] 3.7 g/dL Normal 3.2-5.0 [facility] Comment on above: Performed By: #### L 7000.1800, M100.3200, M1 #### [facility] [address] [place], [address] Albumin/Globulin [Mass ratio] 1.1 {ratio} Normal 0.9-2.4 [facility] Comment on above: Performed By: #### L 7000.1800, M100.3200, M1 #### [facility] [address] [place], [address] ALK P 42 U/L Low 45-117 [facility] Comment on above: Performed By: #### L 7000.1800, M100.3200, #### [facility] [address] [place], [address] ALT [Catalytic activity/Vol] 20 U/L Normal 13-56 [facility] Comment on above: Performed By: #### L 0.1800, .3199, #### [facility] [address] [place], [address] AST [Catalytic activity/Vol] 12 U/L Low 15-37 [facility] Comment on above: Performed By: #### L 0.1800, M100.3199, #### [facility] [address] [place], [address] Bilirubin [Mass/Vol] 0.60 mg/dL Normal 0.20-1.00 [facility] Comment on above: Result Comment: For patients on eltrombopag therapy, use of Dimension [place] TBIL is not recommended. Performed By: #### L 0.1800, .3199, #### [facility] [address] [place], [address] Bilirubin.direct [Mass/Vol] 0.11 mg/dL Normal 0.00-0.30 [facility] Comment on above: Performed By: #### L 0.1800, M100.3200, #### [facility] [address] [place], [address] BUN/CRE 18.1 RATIO Normal 10-20 [facility] Comment on above: Performed By: #### L 7000.1800, M100.3200, #### [facility] [address] [place], [address] CA,Total 8.7 mg/dL Normal 8.5-10.1 [facility] Comment on above: Performed By: #### L 0.1800, M100.320, #### [facility] [address] [place], [address] Chloride [Moles/Vol] 106 mmol/L Normal 98-107 [facility] Comment on above: Performed By: #### L 0.1800, .320, #### [facility] [address] [place], [address] CHOL:HDL 3.60 Normal [facility] Comment on above: Performed By: #### L 0.1800, .3199, #### [facility] [address] [place], [address] Cholesterol [Mass/Vol] 223 mg/dL High 200 [facility] Comment on above: Result Comment: <200 mg/dL Desirable 200-240 mg/dL Borderline >240 mg/dL High Risk Performed By: #### L 0.1799, , #### [facility] [address] [place], [address] Cholesterol in HDL [Mass/Vol] 62 mg/dL Normal [facility] Comment on above: Result Comment: The drugs N-Acetylcysteine and Metamizole may falsely depress this assay. Reference Range HDL <40 mg/dL Low HDL Cholesterol HDL >or= 60 mg/dL High HDL Cholesterol Performed By: #### L 0.1800, M100.3200, #### [facility] [address] [place], [address] Cholesterol in LDL [Mass/Vol] 143 mg/dL High 0-130 [facility] Comment on above: Performed By: #### L 0.1800, .320, #### [facility] [address] [place], [address] Cholesterol in VLDL [Mass/Vol] 18 mg/dL Normal 5-40 [facility] Comment on above: Performed By: #### L 7000.1800, M100.3200, #### [facility] [address] [place], [address] CO2 [Moles/Vol] 29.0 mmol/L Normal 21.0-32.0 [facility] Comment on above: Performed By: #### L 7000.1800, M100.3200, #### [facility] [address] [place], [address] Creatinine [Mass/Vol] 0.72 mg/dL Normal 0.55-1.02 [facility] Comment on above: Result Comment: The validity of the calculated GFR GFRAA in patients over 70 years has not been determined. Clinical correlation is essential. Performed By: #### L 7000.1800, M100.3200, #### [facility] [address] [place], [address] EST GFR - AA 115 mL/min Normal >60 [facility] Comment on above: Result Comment: Afri can [place]ine[place] GFR Calc Performed By: #### L 7000.1800, M100.3200, #### [facility] [address] [place], [address] GAP 2 Low 5-15 [facility] Comment on above: Performed By: #### L 7000.1800, M100.3200, M1 #### [facility] [address] [place], [address] GFR/1.73 sq M.predicted among non-blacks MDRD (S/P/Bld) [Vol rate/Area] 95 mL/min/{1.73_m2} Normal >60 [facility] Comment on above: Result Comment: Non- GFR Calc Performed By: #### L 7000.1800, M100.3200, #### [facility] [address] [place], [address] Globulin (S) [Mass/Vol] 3.4 g/dL Normal 2.2-4.2 [facility] Comment on above: Performed By: #### L 0.1800, .320, #### [facility] [address] [place], [address] Glucose [Mass/Vol] 92 mg/dL Normal 74-106 [facility] Comment on above: Performed By: #### L 0.1799, .3199, #### [facility] [address] [place], [address] LDH 147 U/L Normal 84-246 [facility] Comment on above: Performed By: #### L 0.1800, .3199, #### [facility] [address] [place], [address] Phosphate [Mass/Vol] 3.3 mg/dL Normal 2.5-4.9 [facility] Comment on above: Performed By: #### L 0.1799, .3199, #### [facility] [address] [place], [address] Potassium [Moles/Vol] 4.2 mmol/L Normal 3.5-5.1 [facility] Comment on above: Performed By: #### L 0.1800, M100.320, #### [facility] [address] [place], [address] Sodium [Moles/Vol] 137 mmol/L Normal 136-145 [facility] Comment on above: Performed By: #### L 0.1800, .3200, #### [facility] [address] [place], [address] T PROT 7.1 g/dL Normal 6.4-8.2 [facility] Comment on above: Performed By: #### L 7000.1800, M100.3200, M1 #### [facility] [address] [place], [address] Triglyceride [Mass/Vol] 92 mg/dL Normal [facility] Comment on above: Result Comment: The drugs N-Acetylcysteine and Metamizole may falsely depress this assay. Serum Triglycerides Reference Interval Normal <150 mg/dL Borderline high 150 - 199 mg/dL High 200 - 499 mg/dL Very High > or = 500 mg/dL Performed By: #### L 7000.1800, M100.3200, M1 #### [facility] [address] [place], [address] Urea nitrogen [Mass/Vol] 13 mg/dL Normal 7-18 [facility] Comment on above: Performed By: #### L 7000.1800, M100.3200, #### [facility] [address] [place], [address] URIC 3.9 mg/dL Normal 2.6-6.0 [facility] Comment on above: Result Comment: The drugs N-Acetylcysteine and Metamizole may falsely depress this assay. Performed By: #### L 7000.1800, M100.3200, #### [facility] [address] [place], [address] Basophil percentageOrdered B y: Nubia Ahumada on 10-30-2023 Basophil percentage 0 SEEN /hpf 0-5 [facility] Culture, urineOrdered By: Mark Ahumada on 10-30-2023 Bacteria identified Cx Nom (U) Culture exhibits no growth. [facility] - Chemistry and C hemistry - challengeon 10-30-2023 Glucose Ql (U) Negative [facility] pH (U) 7.5 [pH] [facility] Urobilinogen (U) [Mass/Vol] Negative [facility] - Hematology and Cell countson 10-30-2023 Hemoglobin Ql (U) Negative [facility] - Specimen inform ationon 10-30-2023 Color (U) STRAW [facility] Mucus LM Ql (Urine sed)Order ed By: Nubia Ahumada on 10-30-2023 Mucus Ql (Urine sed) 0 SEEN /hpf [facility] Nitrite ur dipstickOrdered B y: Nubia Ahumada on 10-30-2023 Nitrite Ql (U) Negative [facility] No Panel InformationOrdered By: Nubia Ahumada on 10-30-2023 Urine RBC 0 SEEN /hpf 0-5 [facility] No Panel Informationon 10-30 Urine Leukocytes Negatve [facility] Urine Non-Hemolyzed Blood Negative [facility] Squamous epithelial cells de tection in urine sediment by light microscopyOrdered By: Nubia Ahumada on 10-30-2023 Epithelial cells.squamous LM Ql (Urine sed) 0 SEEN /hpf 5-10 [facility] Urine blood detectionOrdered By: Nubia Ahumada on 10-30-2023 RBC Ql (U) Negative Negative [facility] Urine clarityOrdered By: Amor Ahumada on 10-30-2023 Clarity (U) Clear [facility] Urine color determinationOrd ered By: Nubia Ahumada on 10-30-2023 Color (U) Yellow Yellow [facility] Urine glucose detectionOrder ed By: Nubia Ahumada on 10-30-2023 Glucose Ql (U) Normal mg/dl Normal [facility] Urine ketones detection by t est stripOrdered By: Nubia Ahumada on 10-30-2023 Ketones Ql (U) Negative [facility] Urine leukocyte esterase det ection by dipstickOrdered By: Nubia Ahumada on 10-30-2023 Leukocyte esterase Test strip Ql (U) Negative Negative [facility] Urine pHOrdered By: Miguel Ángel Ahumada on 10-30-2023 pH (U) 7.0 [pH] 5.0 - 8.0 [facility] Urine protein assay by test strip, semi-quantitativeOrdered By: Nubia Ahumada on 10-30-2023 Protein Ql (U) Negative [facility] Urine sediment bacteria coun t by microscopy (number/high power field)Ordered By: Nubia Ahumada on 10-30-2023 Bacteria LM.HPF (Urine sed) [#/Area] 0 /[HPF] None Seen [facility] Urine specific gravity measu rementOrdered By: Nubia Ahumada on 10-30-2023 Specific gravity (U) [Rel density] 1.005 [facility] Urine total bilirubin detect ion by test stripOrdered By: Nubia Ahumada on 10-30-2023 Bilirubin Ql (U) Negative [facility] Urine urobilinogen measureme ntOrdered By: Nubia Ahumada on 10-30-2023 Urobilinogen Ql (U) Normal mg/dl Normal [facility] NOVEL CORONAVIRUSon 06-03-20 22 NARRATIVE This test was performed using isothermal [employer] and has been approved as Emergency Use Authorization (EUA) for the qualitative detection [id number] nucleic acid. Normal [facility] Comment on above: Performed By: #### DANA Cui, CMPF #### [place] [address] SARS-CoV-2 (COVID-19) RNA MEERA+probe Ql (Unsp spec) Not detected Normal NOT DETECTED [facility] Comment on above: Result Comment: Nega tive results do not preclude SARS-CoV-2 infection and should not be used as the sole basis for treatment or other patient management decisions. Optimum specimen types and timing for peak viral levels during infections caused by SARS-CoV-2 has not been determined. The possibility of a false negative result should especially be considered if the patient's recent exposures or clinical presentation suggest that SARS-CoV-2 infection is probable, and diagnostic tests for other causes of illness (e.g., other respiratory illness) are negative. Collection of a new specimen and re-testing may be necessary if the patient is critically ill or clinically deteriorating. Performed By: #### DANA Cui, CMPF #### [place] [address] NOVEL CORONAVIRUSon 10-27-19 22 NARRATIVE This test was performed using isothermal MEERA and has been approved as Emergency Use Authorization (EUA) for the qualitative detection [id number] nucleic acid. Normal [facility] Comment on above: Performed By: #### C OVID #### [place] [address] SARS-CoV-2 (COVID-19) RNA MEERA+probe Ql (Unsp spec) Not detected Normal NOT DETECTED [facility] Comment on above: Result Comment: Nega tive results do not preclude SARS-CoV-2 infection and should not be used as the sole basis for treatment or other patient management decisions. Optimum specimen types and timing for peak viral levels during infections caused by SARS-CoV-2 has not been determined. The possibility of a false negative result should especially be considered if the patient's recent exposures or clinical presentation suggest that SARS-CoV-2 infection is probable, and diagnostic tests for other causes of illness (e.g., other respiratory illness) are negative. Collection of a new specimen and re-testing may be necessary if the patient is critically ill or clinically deteriorating. Performed By: #### C OVID #### Testing performed at [place] [id number] RAPID FLU Aon 10-27-2021 INFLUENZA A Negative Normal NEGATIVE [facility] Comment on above: Performed By: #### R FLUAB #### Testing performed at [place] [id number] INFLUENZA B Positive Abnormal NEGATIVE [facility] Comment on above: Result Comment: TEST ING PERFORMED BY [employer] Result called to read back by: [employer] 10/27/2021 @ 13:44 by CHRIS Performed By: #### R FLUAB #### Testing performed at [place] [id number] CBCon 08-04-2021 ABSOLUTE BAS 0.0 10*3/uL Normal 0.0-0.2 [facility] Comment on above: Performed By: #### M G, ACBC, CMPF #### Testing performed at [place] [id number] ABSOLUTE EOS 0.00 10*3/uL Normal 0.0-0.7 [facility] Comment on above: Performed By: #### M G, ACBC, CMPF #### Testing performed at [address] [address] ABSOLUTE NEUTROPHIL COUNT 5.2 10*3/uL Normal 1.4-6.5 [facility] Comment on above: Performed By: #### M G, ACBC, CMPF #### Testing performed at [address] [address] Basophils/100 WBC (Bld) 0.6 % Normal 0.0-2.0 [facility] Comment on above: Performed By: #### M G, ACBC, CMPF #### Testing performed at [address] [address] DTYPE AUTO DIFF Normal [facility] Comment on above: Performed By: #### M G, ACBC, CMPF #### Testing performed at [address] [address] Eosinophils/100 WBC (Bld) 0.6 % Normal 0.0-11.0 [facility] Comment on above: Performed By: #### M G, ACBC, CMPF #### Testing performed at [address] [address] Lymphocytes (Bld) [#/Vol] 1.70 10*3/uL Normal 1.2-3.4 [facility] Comment on above: Performed By: #### M G, ACBC, CMPF #### Testing performed at [address] [address] Lymphocytes/100 WBC (Bld) 22.5 % Normal 20.0-55.0 [facility] Comment on above: Performed By: #### M G, ACBC, CMPF #### Testing performed at [address] [address] Monocytes (Bld) [#/Vol] 0.6 10*3/uL Normal 0.0-0.7 [facility] Comment on above: Performed By: #### M G, ACBC, CMPF #### Testing performed at [address] [address] Monocytes/100 WBC (Bld) 7.4 % Normal 0.0-10.0 [facility] Comment on above: Performed By: #### CAITLYN CuiBC, CMPF #### Testing performed at [address] [address] Neutrophils/100 WBC (Bld) 68.9 % Normal 37.0-75.0 [facility] Comment on above: Performed By: #### Augustine Hinson ACBC, CMPF #### Testing performed at [address] [address] Erythrocyte distribution width (RBC) [Ratio] 12.8 % Normal 11.5-14.5 [facility] Comment on above: Performed By: #### DANA Cui CMPF #### Testing performed at [address] [address] Hematocrit (Bld) [Volume fraction] 39.5 % Normal 36.0-48.0 [facility] Comment on above: Performed By: #### CAITLYN CuiBC, CMPF #### Testing performed at [address] [address] Hemoglobin (Bld) [Mass/Vol] 13.5 g/dL Normal 12.0-16.0 [facility] Comment on above: Performed By: #### DANA Cui, CMPF #### Testing performed at [address] [address] MCH (RBC) [Entitic mass] 30.2 pg Normal 26.0-35.0 [facility] Comment on above: Performed By: #### Augustine Hinson ACBC, CMPF #### Testing performed at [address] [address] MCHC (RBC) [Mass/Vol] 34.2 g/dL Normal 27.0-37.0 [facility] Comment on above: Performed By: #### CAITLYN CuiBC, CMPF #### Testing performed at [address] [address] MCV (RBC) [Entitic vol] 88.2 fL Normal 80.0-100.0 [facility] Comment on above: Performed By: #### Augustine Hinson ACBC, CMPF #### Testing performed at [address] [address] Platelet mean volume (Bld) [Entitic vol] 9.6 fL Normal 7.4-11.0 [facility] Comment on above: Performed By: #### DANA Cui, CMPF #### Testing performed at [address] [address] Platelets (Bld) [#/Vol] 277 10*3/uL Normal 130.0-400.0 [facility] Comment on above: Performed By: #### Augustine Hinson, ACBC, CMPF #### Testing performed at [address] [address] RBC (Bld) [#/Vol] 4.48 10*6/uL Normal 4.0-5.4 [facility] Comment on above: Performed By: #### Augustine Hinson, DANA, CMPF #### Testing performed at [address] [address] WBC (Bld) [#/Vol] 7.5 10*3/uL Normal 3.6-11.0 [facility] Comment on above: Performed By: #### Augustine Hinson, DANA, CMPF #### Testing performed at [address] [address] CBC, EDIF, PLATELETon 2020 ABSOLUTE BASOPHIL COUNT 0.0 10*3/uL 0.0 - 0.2 10*3/uL [facility] Basophils/100 WBC (Bld) 0.6 % 0.0 - 2.0 % [facility] Differential cell count method Nom (Bld) AUTO DIFF % [facility] Eosinophils (Bld) [#/Vol] 0.00 10*3/uL 0.0 - 0.7 10*3/uL [facility] Eosinophils/100 WBC (Bld) 0.6 % 0.0 - 11.0 % [facility] Erythrocyte distribution width (RBC) [Ratio] 12.8 % 11.5 - 14.5 % [facility] Hematocrit (Bld) [Volume fraction] 39.5 % 36.0 - 48.0 % [facility] Hemoglobin (Bld) [Mass/Vol] 13.5 g/dL [facility] Lymphocytes (Bld) [#/Vol] 1.70 10*3/uL 1.2 - 3.4 10*3/uL [facility] Lymphocytes/100 WBC (Bld) 22.5 % 20.0 - 55.0 % [facility] MCH (RBC) [Entitic mass] 30.2 pg 26. 0 - 35.0 PG [facility] MCHC (RBC) [Mass/Vol] 34.2 g/dL [facility] MCV (RBC) [Entitic vol] 88.2 fL [facility] Monocytes (Bld) [#/Vol] 0.6 10*3/uL 0.0 - 0.7 10*3/uL [facility] Monocytes/100 WBC (Bld) 7.4 % 0.0 - 10.0 % [facility] Neutrophils (Bld) [#/Vol] 5.2 10*3/uL 1.4 - 6.5 10*3/uL [facility] Neutrophils/100 WBC (Bld) 68.9 % 37.0 - 75.0 % [facility] Platelet mean volume (Bld) [Entitic vol] 9.6 fL [facility] Platelets (Bld) [#/Vol] 277 10*3/uL 130. 0 - 400.0 10*3/uL [facility] RBC (Bld) [#/Vol] 4.48 10*6/uL 4.0 - 5.4 10*6/uL [facility] WBC (Bld) [#/Vol] 7.5 10*3/uL 3.6 - 11.0 10*3/uL [facility] CMP FASTINGon 08-04-2021 A:G RATIO 1.4 RATIO Normal 1.3-2.2 [facility] Comment on above: Performed By: #### M G, ACBC, CMPF #### Testing performed at [address] [address] ALBUMIN 4.5 G/dl Normal 3.5-5.0 [facility] Comment on above: Performed By: #### M G, ACBC, CMPF #### Testing performed at [address] [address] ALP [Catalytic activity/Vol] 34 U/L Low 38-126 [facility] Comment on above: Performed By: #### M G, ACBC, CMPF #### Testing performed at [address] [address] ALT [Catalytic activity/Vol] 15 U/L Normal 14-54 [facility] Comment on above: Performed By: #### M G, ACBC, CMPF #### Testing performed at [address] [address] AST [Catalytic activity/Vol] 14 U/L Low 15-41 [facility] Comment on above: Performed By: #### M G, ACBC, CMPF #### Testing performed at [address] [address] Bilirubin [Mass/Vol] 0.5 mg/dL Normal 0.2-1.2 [facility] Comment on above: Performed By: #### M G, ACBC, CMPF #### Testing performed at [place] [id number] Creatinine [Mass/Vol] 0.79 mg/dL Normal 0.52-1.04 [facility] Comment on above: Performed By: #### M G, ACBC, CMPF #### Testing performed at [address] [address] EST. GFR, >60 Normal [facility] Comment on above: Performed By: #### M G, ACBC, CMPF #### Testing performed at [address] [address] EST. GFR,Non >60 Normal [facility] Comment on above: Performed By: #### M G, ACBC, CMPF #### Testing performed at [address] [address] GFR Information Average GFR for 30-3 9 years old = 109. Normal [facility] Comment on above: Result Comment: Winder Fixer sally Kidney disease, GFR = <60. Kidney failure, GFR = <15. The GFR estimate is not adjusted for extreme body surface area or acute process, nor has it been validated for women or ethnic groups other than and . Performed By: #### M G, ACBC, CMPF #### Testing performed at [address] [address] Protein [Mass/Vol] 7.7 g/dL Normal 6.3-8.2 [facility] Comment on above: Performed By: #### DANA Cui CMPF #### Testing performed at [address] [place] [address] Urea nitrogen [Mass/Vol] 9 mg/dL Normal 7-20 [facility] Comment on above: Performed By: #### DANA Cui CMPF #### Testing performed at [address] [address] Calcium [Mass/Vol] 9.3 mg/dL Normal 8.4-10.2 [facility] Comment on above: Performed By: #### DANA Cui CMPF #### Testing performed at [address] [address] Chloride [Moles/Vol] 102 mmol/L Normal 98-107 [facility] Comment on above: Performed By: #### DANA Cui CMPF #### Testing performed at [address] [address] CO2 [Moles/Vol] 24 mmol/L Normal 22-30 [facility] Comment on above: Performed By: #### DANA Cui CMPF #### Testing performed at [address] [place] [address] Glucose [Mass/Vol] 121 mg/dL High 70-100 [facility] Comment on above: Result Comment: NORMAL <100 mg/dL PREDIABETES 101-126 mg/dL DIABETES 126 mg/dL or higher Performed By: #### DANA Cui, CMPF #### Testing performed at [address] [place] [address] Potassium [Moles/Vol] 3.4 mmol/L Low 3.5-5.1 [facility] Comment on above: Performed By: #### DANA Cui CMPF #### Testing performed at [address] [place] [address] Sodium [Moles/Vol] 136 mmol/L Normal 136-145 [facility] Comment on above: Performed By: #### M G, ACBC, CMPF #### Testing performed at [facility] [address] [place] [address] COMPREHENSIVE METABOLIC PANE [facility] 08-04-2021 Albumin [Mass/Vol] 4.5 G/dl 3.5 - 5.0 G/dl [facility] Albumin/Globulin [Mass ratio] 1.4 {ratio} [facility] ALP [Catalytic activity/Vol] 34 U/L Low [facility] ALT [Catalytic activity/Vol] 15 U/L [facility] AST [Catalytic activity/Vol] 14 U/L Low [facility] Bilirubin [Mass/Vol] 0.5 mg/dL [facility] Calcium [Mass/Vol] 9.3 mg/dL [facility] Chloride [Moles/Vol] 102 mmol/L [facility] CO2 [Moles/Vol] 24 mmol/L [facility] Creatinine [Mass/Vol] 0.79 mg/dL [facility] GFR COMMENT Average GFR for 30-3 9 years old = 109. [facility] Comment on above: Chronic Kidney disea se, GFR = <60. Kidney failure, GFR = <15. The GFR estimate is not adjusted for extreme body surface area or acute process, nor has it been validated for women or ethnic groups other than and . GFR/1.73 sq M.predicted among blacks MDRD (S/P/Bld) [Vol rate/Area] mL/min/{1.73_m2} ml/min/1.73s q.m [facility] GFR/1.73 sq M.predicted among non-blacks MDRD (S/P/Bld) [Vol rate/Area] mL/min/{1.73_m2} ml/min/1.73s q.m [facility] Glucose post fast [Mass/Vol] 121 mg/dL High [facility] Comment on above: NORMAL <100 mg/dL PREDIABETES 101-126 mg/dL DIABETES 126 mg/dL or higher Interpretation and review of laboratory results Abnormal [facility] Potassium [Moles/Vol] 3.4 mmol/L Low [facility] Protein [Mass/Vol] 7.7 g/dL [facility] Sodium [Moles/Vol] 136 mmol/L [facility] Urea nitrogen [Mass/Vol] 9 mg/dL [facility] D DIMERon 08-04-2021 D DIMER 0.43 mg/L FEU Normal <0.50 [facility] Comment on above: Result Comment: If r esult is greater than the cutoff value of 0.50 mg/L then the potential for PE or DVT exists. Other conditions exist which may cause a falsely elevated level. Please correlate clinically, including radiological findings and other clinical parameters. Performed By: #### D DIMER #### Testing performed at [address] [address] D-DIMER,QUANTITATIVEon 08-04 Fibrin D-dimer FEU (PPP) [Mass/Vol] 0.43 <0.50 mg/L FEU [facility] Comment on above: If result is greater than the cutoff value of 0.50 mg/L then the potential for PE or DVT exists. Other conditions exist which may cause a falsely elevated level. Please correlate clinically, including radiological findings and other clinical parameters. [facility] MAGNESIUMon 08-04-2021 Magnesium [Mass/Vol] 2.1 mg/dL Normal 1.6-2.3 [facility] Comment on above: Performed By: #### M G, ACBC, CMPF #### Testing performed at [address] [address] Magnesium [Mass/Vol] 2.1 mg/dL [facility] No Panel Informationon 08-04 [facility] TROPONIN I, HIGH SENSITIVITY on 08-04-2021 TROPONIN I, HIGH SENSITIVITY <2 Normal 0-12 [facility] Comment on above: Result Comment: Indeterminant: >12 to 100 pg/mL female >20 to 100 pg/mL male Indicative of myocardial injury. Serial sampling is recommended, a change of greater than or equal to 20 pg/mL is indicative of acute coronary syndrome. Performed By: #### T ROHS #### Testing performed at [address] [address] TROPONIN I, HIGH SENSITIVITY <2 0 - 12 pg/mL [facility] Comment on above: Indeterminant: >12 to 100 pg/mL female >20 to 100 pg/mL male Indicative of myocardial injury. Serial sampling is recommended, a change of greater than or equal to 20 pg/mL is indicative of acute coronary syndrome. [facility] CBCon 07-27-2021 ABSOLUTE BAS 0.1 10*3/uL Normal 0.0-0.2 [facility] Comment on above: Performed By: #### L IP2, CMPF, FX, ACBC, TSH2 #### Testing performed at [address] [address] ABSOLUTE EOS 0.10 10*3/uL Normal 0.0-0.7 [facility] Comment on above: Performed By: #### L IP2, CMPF, FX, ACBC, TSH2 #### Testing performed at [address] [address] ABSOLUTE NEUTROPHIL COUNT 4.2 10*3/uL Normal 1.4-6.5 [facility] Comment on above: Performed By: #### L IP2, CMPF, FX, ACBC, TSH2 #### Testing performed at [address] [address] Basophils/100 WBC (Bld) 0.8 % Normal 0.0-2.0 [facility] Comment on above: Performed By: #### L IP2, CMPF, FX, ACBC, TSH2 #### Testing performed at [address] [address] DTYPE AUTO DIFF Normal [facility] Comment on above: Performed By: #### L IP2, CMPF, FX, ACBC, TSH2 #### Testing performed at [address] [address] Eosinophils/100 WBC (Bld) 1.8 % Normal 0.0-11.0 [facility] Comment on above: Performed By: #### L IP2, CMPF, FX, ACBC, TSH2 #### Testing performed at [address] [address] Lymphocytes (Bld) [#/Vol] 1.90 10*3/uL Normal 1.2-3.4 [facility] Comment on above: Performed By: #### L IP2, CMPF, FX, ACBC, TSH2 #### Testing performed at [address] [address] Lymphocytes/100 WBC (Bld) 27.9 % Normal 20.0-55.0 [facility] Comment on above: Performed By: #### L IP2, CMPF, FX, ACBC, TSH2 #### Testing performed at [address] [address] Monocytes (Bld) [#/Vol] 0.6 10*3/uL Normal 0.0-0.7 [facility] Comment on above: Performed By: #### L IP2, CMPF, FX, ACBC, TSH2 #### Testing performed at [address] [address] Monocytes/100 WBC (Bld) 8.7 % Normal 0.0-10.0 [facility] Comment on above: Performed By: #### L IP2, CMPF, FX, ACBC, TSH2 #### Testing performed at [address] [address] Neutrophils/100 WBC (Bld) 60.8 % Normal 37.0-75.0 [facility] Comment on above: Performed By: #### L IP2, CMPF, FX, ACBC, TSH2 #### Testing performed at [address] [address] Erythrocyte distribution width (RBC) [Ratio] 12.6 % Normal 11.5-14.5 [facility] Comment on above: Performed By: #### L IP2, CMPF, FX, ACBC, TSH2 #### Testing performed at [address] [address] Hematocrit (Bld) [Volume fraction] 38.2 % Normal 36.0-48.0 [facility] Comment on above: Performed By: #### L IP2, CMPF, FX, ACBC, TSH2 #### Testing performed at [address] [address] Hemoglobin (Bld) [Mass/Vol] 13.2 g/dL Normal 12.0-16.0 [facility] Comment on above: Performed By: #### L IP2, CMPF, FX, ACBC, TSH2 #### Testing performed at [address] [address] MCH (RBC) [Entitic mass] 30.2 pg Normal 26.0-35.0 [facility] Comment on above: Performed By: #### L IP2, CMPF, FX, ACBC, TSH2 #### Testing performed at [address] [address] MCHC (RBC) [Mass/Vol] 34.5 g/dL Normal 27.0-37.0 [facility] Comment on above: Performed By: #### L IP2, CMPF, FX, ACBC, TSH2 #### Testing performed at [address] [address] MCV (RBC) [Entitic vol] 87.5 fL Normal 80.0-100.0 [facility] Comment on above: Performed By: #### L IP2, CMPF, FX, ACBC, TSH2 #### Testing performed at [address] [address] Platelet mean volume (Bld) [Entitic vol] 8.9 fL Normal 7.4-11.0 [facility] Comment on above: Performed By: #### L IP2, CMPF, FX, ACBC, TSH2 #### Testing performed at [address] [address] Platelets (Bld) [#/Vol] 280 10*3/uL Normal 130.0-400.0 [facility] Comment on above: Performed By: #### L IP2, CMPF, FX, ACBC, TSH2 #### Testing performed at [address] [address] RBC (Bld) [#/Vol] 4.37 10*6/uL Normal 4.0-5.4 [facility] Comment on above: Performed By: #### L IP2, CMPF, FX, ACBC, TSH2 #### Testing performed at [address] [address] WBC (Bld) [#/Vol] 6.9 10*3/uL Normal 3.6-11.0 [facility] Comment on above: Performed By: #### L IP2, CMPF, FX, ACBC, TSH2 #### Testing performed at [address] [address] CMP FASTINGon 07-27-2021 A:G RATIO 1.4 RATIO Normal 1.3-2.2 [facility] Comment on above: Performed By: #### L IP2, CMPF, FX, ACBC, TSH2 #### Testing performed at [address] [address] ALBUMIN 4.4 G/dl Normal 3.5-5.0 [facility] Comment on above: Performed By: #### L IP2, CMPF, FX, ACBC, TSH2 #### Testing performed at [address] [address] ALP [Catalytic activity/Vol] 35 U/L Low 38-126 [facility] Comment on above: Performed By: #### L IP2, CMPF, FX, ACBC, TSH2 #### Testing performed at [address] [address] ALT [Catalytic activity/Vol] 23 U/L Normal 14-54 [facility] Comment on above: Performed By: #### L IP2, CMPF, FX, ACBC, TSH2 #### Testing performed at [address] [address] AST [Catalytic activity/Vol] 21 U/L Normal 15-41 [facility] Comment on above: Performed By: #### L IP2, CMPF, FX, ACBC, TSH2 #### Testing performed at [address] [address] Bilirubin [Mass/Vol] 0.4 mg/dL Normal 0.2-1.2 [facility] Comment on above: Performed By: #### L IP2, CMPF, FX, ACBC, TSH2 #### Testing performed at [address] [address] Calcium [Mass/Vol] 9.5 mg/dL Normal 8.4-10.2 [facility] Comment on above: Performed By: #### L IP2, CMPF, FX, ACBC, TSH2 #### Testing performed at [address] [address] Chloride [Moles/Vol] 100 mmol/L Normal 98-107 [facility] Comment on above: Performed By: #### L IP2, CMPF, FX, ACBC, TSH2 #### Testing performed at [address] [address] CO2 [Moles/Vol] 26 mmol/L Normal 22-30 [facility] Comment on above: Performed By: #### L IP2, CMPF, FX, ACBC, TSH2 #### Testing performed at [address] [address] Creatinine [Mass/Vol] 0.68 mg/dL Normal 0.52-1.04 [facility] Comment on above: Performed By: #### L IP2, CMPF, FX, ACBC, TSH2 #### Testing performed at [address] [address] EST. GFR, >60 Normal [facility] Comment on above: Performed By: #### L IP2, CMPF, FX, ACBC, TSH2 #### Testing performed at [address] [address] EST. GFR,Non >60 Normal [facility] Comment on above: Performed By: #### L IP2, CMPF, FX, ACBC, TSH2 #### Testing performed at [address] [address] GFR Information Average GFR for 30-3 9 years old = 109. Normal [facility] Comment on above: Result Comment: Winder Fixer sally Kidney disease, GFR = <60. Kidney failure, GFR = <15. The GFR estimate is not adjusted for extreme body surface area or acute process, nor has it been validated for women or ethnic groups other than and . Performed By: #### L IP2, CMPF, FX, ACBC, TSH2 #### Testing performed at [address] [address] Glucose [Mass/Vol] 96 mg/dL Normal 70-100 [facility] Comment on above: Result Comment: NORMAL <100 mg/dL PREDIABETES 101-126 mg/dL DIABETES 126 mg/dL or higher Performed By: #### L IP2, CMPF, FX, ACBC, TSH2 #### Testing performed at [address] [address] Potassium [Moles/Vol] 4.3 mmol/L Normal 3.5-5.1 [facility] Comment on above: Performed By: #### L IP2, CMPF, FX, ACBC, TSH2 #### Testing performed at [address] [address] Protein [Mass/Vol] 7.6 g/dL Normal 6.3-8.2 [facility] Comment on above: Performed By: #### L IP2, CMPF, FX, ACBC, TSH2 #### Testing performed at [address] [address] Sodium [Moles/Vol] 136 mmol/L Normal 136-145 [facility] Comment on above: Performed By: #### L IP2, CMPF, FX, ACBC, TSH2 #### Testing performed at [address] [address] Urea nitrogen [Mass/Vol] 12 mg/dL Normal 7-20 [facility] Comment on above: Performed By: #### L IP2, CMPF, FX, ACBC, TSH2 #### Testing performed at [address] [address] FAX REQUESTon 07-27-2021 FAX TO [phone] [facility] Comment on above: Performed By: #### L IP2, CMPF, FX, ACBC, TSH2 #### Testing performed at [address] [address] LIPID PROFILEon 07-27-2021 Cholesterol [Mass/Vol] 216 mg/dL High 100-199 [facility] Comment on above: Performed By: #### M G, ACBC, CMPF #### Testing performed at [address] [address] Cholesterol in HDL [Mass/Vol] 45 mg/dL Normal 40-60 [facility] Comment on above: Performed By: #### M G, ACBC, CMPF #### Testing performed at [address] [address] Cholesterol in LDL [Mass/Vol] 127 mg/dL High 0-100 [facility] Comment on above: Performed By: #### DANA Cui CMPF #### Testing performed at [address] [address] Cholesterol in VLDL [Mass/Vol] 44 mg/dL High 5.0-25.0 [facility] Comment on above: Performed By: #### DANA Cui, CMPF #### Testing performed at [address] [address] Cholesterol.total/Choles terol in HDL [Mass ratio] 4.80 {ratio} Normal [facility] Comment on above: Result Comment: RISK TOTAL/HDL RATIO MEN WOMEN 1/2 AVERAGE 3.43 3.27 AVERAGE 4.97 4.44 2X AVERAGE 9.55 7.05 3X AVERAGE 23.99 11.04 Performed By: #### DANA Cui, CMPF #### Testing performed at [address] [address] Triglyceride [Mass/Vol] 219 mg/dL High <150 [facility] Comment on above: Performed By: #### DANA Cui, CMPF #### Testing performed at [address] [address] TSHon 07-27-2021 TSH 2.468 uIU/ML Normal 0.45-5.33 [facility] Comment on above: Performed By: #### Augustine Hinson, DANA, CMPF #### Testing performed at [address] [address] D DIMERon 06-24-2021 D DIMER <0.27 Normal <0.50 [facility] Comment on above: Result Comment: If r esult is greater than the cutoff value of 0.56 mg/L then the potential for PE or DVT exists. Other conditions exist which may cause a falsely elevated level. Please correlate clinically, including radiological findings and other clinical parameters. Performed By: #### DANA Cui, CMPF #### Testing performed at [address] [address] Vital Signs Date Time Vital Sign Value Performing Clinician Iva cantu 04-24-2025 11:52-0400 Body temperature 96.9 [degF] Dr. Leda Wright MD Work Phone: [facility] 04-24-2025 11:52-0400 Diastolic blood pressure 87 mm[Hg] Dr. Leda Wright MD Work Phone: [facility] 04-24-2025 11:52-0400 Heart rate 71 /min Dr. Leda Wright MD Work Phone: [facility] 04-24-2025 11:52-0400 Respiratory rate 15 /min Dr. Leda Wright MD Work Phone: [facility] 04-24-2025 11:52-0400 SaO2% (BldA) [Mass fraction] 100 % Dr. Leda Wright MD Work Phone: [facility] 04-24-2025 11:52-0400 Systolic blood pressure 128 mm[Hg] Dr. Leda Wright MD Work Phone: [facility] 04-24-2025 10:47-0400 Body height 177.[address] Leda Wright MD Work Phone: [facility] 04-24-2025 10:47-0400 Body mass index (BMI) [Ratio] 21.5 kg/m2 Dr. Leda Wright MD Work Phone: [facility] 04-24-2025 10:47-0400 Body weight 68.[address] Leda Wright MD Work Phone: [facility] 04-03-2025 11:44-0400 Body height 177.[address] Leda Wright MD Work Phone: [facility] 04-03-2025 11:35-0400 Body mass index (BMI) [Ratio] 22.4 kg/m2 Dr. Leda Wright MD Work Phone: [facility] 04-03-2025 11:35-0400 Body weight 70.[address] Leda Wright MD Work Phone: [facility] 04-03-2025 11:35-0400 Diastolic blood pressure 80 mm[Hg] Dr. Leda Wright MD Work Phone: [facility] 04-03-2025 11:35-0400 Systolic blood pressure 118 mm[Hg] Dr. Leda Wright MD Work Phone: [facility] 11-24-2024 13:01-0500 Body height 177.[address] Leda Wright MD Work Phone: [facility] 11-24-2024 13:01-0500 Body mass index (BMI) [Ratio] 24 kg/m2 Dr. Leda Wright MD Work Phone: [facility] 11-24-2024 13:01-0500 Body temperature 97.5 [degF] Dr. Leda Wright MD Work Phone: [facility] 11-24-2024 13:01-0500 Body weight 75.[address] Leda Wright MD Work Phone: [facility] 11-24-2024 13:01-0500 Diastolic blood pressure 86 mm[Hg] Dr. Leda Wright MD Work Phone: [facility] 11-24-2024 13:01-0500 Heart rate 68 /min Dr. Leda Wright MD Work Phone: [facility] 11-24-2024 13:01-0500 Respiratory rate 18 /min Dr. Leda Wright MD Work Phone: [facility] 11-24-2024 13:01-0500 SaO2% (BldA) [Mass fraction] 100 % Dr. Leda Wright MD Work Phone: [facility] 11-24-2024 13:01-0500 Systolic blood pressure 132 mm[Hg] Dr. Leda Wright MD Work Phone: [facility] 10-25-2024 11:31-0500 Body mass index (BMI) [Ratio] 24 kg/m2 Dr. Leda Wright MD Work Phone: [facility] 10-25-2024 11:31-0500 Body weight 75.[address] Leda Wright MD Work Phone: [facility] 10-25-2024 11:31-0500 Diastolic blood pressure 85 mm[Hg] Dr. Leda Wright MD Work Phone: [facility] 10-25-2024 11:31-0500 Systolic blood pressure 138 mm[Hg] Dr. Leda Wright MD Work Phone: [facility] 09-06-2024 10:30-0500 Body mass index (BMI) [Ratio] 23.7 kg/m2 Dr. Leda Wright MD Work Phone: [facility] 09-06-2024 10:30-0500 Body temperature 98.3 [degF] Dr. Leda Wright MD Work Phone: [facility] 09-06-2024 10:30-0500 Body weight 75.[address] Leda Wright MD Work Phone: [facility] 09-06-2024 10:30-0500 Diastolic blood pressure 82 mm[Hg] Dr. Leda Wright MD Work Phone: [facility] 09-06-2024 10:30-0500 Heart rate 84 /min Dr. Leda Wright MD Work Phone: [facility] 09-06-2024 10:30-0500 SaO2% (BldA) [Mass fraction] 99 % Dr. Leda Wright MD Work Phone: [facility] 09-06-2024 10:30-0500 Systolic blood pressure 122 mm[Hg] Dr. Leda Wright MD Work Phone: [facility] 10-30-2023 11:52-0500 Body height 177.[address] Tadeo Obregon Work Phone: [facility] 10-30-2023 11:52-0500 Body mass index (BMI) [Ratio] 23.9 kg/m2 Dr. Tadeo Obregon Work Phone: [facility] 10-30-2023 11:52-0500 Body temperature 98.4 [degF] Dr. Tadeo Obregon Work Phone: [facility] 10-30-2023 11:52-0500 Body weight 75.[address] Tadeo Obregon Work Phone: [facility] 10-30-2023 11:52-0500 Diastolic blood pressure 70 mm[Hg] Dr. Tadeo Obregon Work Phone: [facility] 10-30-2023 11:52-0500 Heart rate 60 /min Dr. Tadeo Obregon Work Phone: [facility] 10-30-2023 11:52-0500 Respiratory rate 12 /min Dr. Tadeo Obregon Work Phone: [facility] 10-30-2023 11:52-0500 SaO2% (BldA) [Mass fraction] 100 % Dr. Tadeo Obregon Work Phone: [facility] 10-30-2023 11:52-0500 Systolic blood pressure 116 mm[Hg] Dr. Tadeo Obregon Work Phone: [facility] 08-04-2021 19:00-0500 Diastolic blood pressure 76 mm[Hg] Nathaniel Garza MD Work Phone: [facility] 08-04-2021 19:00-0500 Heart rate 73 /min Nathaniel Garza MD Work Phone: [facility] 08-04-2021 19:00-0500 Respiratory rate 19 /min Nathaniel Garza MD Work Phone: [facility] 08-04-2021 19:00-0500 SaO2% (BldA) [Mass fraction] 98 % Nathaniel Garza MD Work Phone: [facility] 08-04-2021 19:00-0500 Systolic blood pressure 125 mm[Hg] Nathaniel Garza MD Work Phone: [facility] 08-04-2021 15:41-0500 Body height 177.8 cm Nathaniel Garza MD Work Phone: [facility] 08-04-2021 15:41-0500 Body mass index (BMI) [Ratio] 25.83 kg/m2 Nathaniel Garza MD Work Phone: [facility] 08-04-2021 15:41-0500 Body weight 81.65 kg Nathaniel Garza MD Work Phone: [facility] Encounters Encounter Date Encounter Type Care Provider Facility Start: 04-24-2025 End: 04-24-2025 Emergency department patient visit Dr. Leda Wright MD Work Phone: -Emergency Department Work Phone: Start: 04-06-2025 End: 04-06-[address] Leda Wright MD Work Phone: -Ultrasound [facility] Start: 04-06-2025 End: 04-06-2025 Patient encounter procedure Carlee Tai [employer]-C -Ultrasound [facility] Work Phone: Start: 04-06-2025 End: 04-06-2025 ambulatory Leda Wright Facility:[facility] Start: 04-03-2025 End: 04-03-[address] Leda Wright MD Work Phone: -Laboratory Specimen Start: 04-03-2025 End: 04-03-[address] Anna Tracey DO -Laboratory Specimen Work Phone: Start: 04-03-2025 End: 04-03-2025 Patient encounter procedure Carlee Tai WELLFIELD TECHNICIAN-C -[facility] Work Phone: Start: 04-03-2025 End: 04-03-[address] Leda Wright MD Work Phone: -[facility] Start: 04-03-2025 End: 04-03-2025 ambulatory Leda Yeelay Facility:[facility] Start: 03-08-2025 End: 03-08-[address] Leda Wright MD Work Phone: [facility] Work Phone: Start: 03-08-2025 End: 03-08-[address] Leda Wright MD Work Phone: -Laboratory Work Phone: Start: 03-07-2025 End: 03-08-2025 ambulatory MIGUEL NADIA Facility:[facility] Start: 11-24-2024 End: 11-24-[address] Leda Wright MD Work Phone: [facility] Work Phone: Start: 11-24-2024 End: 11-24-[address] Franck Dupont MD -Laboratory, Specimen Work Phone: Start: 11-24-2024 End: 11-24-[address] Franck Dupont MD -[facility] Work Phone: Start: 11-24-2024 End: 11-24-2024 ambulatory Leda Wright Facility:[facility] Start: 11-24-2024 ambulatory Leda Wright Facility :[facility] Start: 11-24-2024 Non-patient / Non-visit Dr. Nathaniel Ren MD -[facility] Start: 11-24-2024 End: 11-24-2024 ambulatory Leda Yeelay Facility:[facility] Start: 10-30-2024 End: 10-30-2024 Patient encounter procedure Yudith MAZA -[facility]patient [facility] Work Phone: Start: 10-30-2024 End: 10-30-2024 ambulatory Leda Yeelay Facility:[facility] Start: 10-25-2024 End: 10-25-2024 Patient encounter procedure Yudith MAZA -Laboratory Work Phone: Start: 10-25-2024 End: 10-25-2024 Patient encounter procedure Yudith MAZA -[facility] Work Phone: Start: 10-25-2024 End: 10-25-2024 Patient encounter status Yudith Villanueva WELLFIELD TECHNICIAN-Ha [facility] Start: 10-25-2024 End: 10-25-2024 ambulatory Leda [place] Facility:[facility] Start: 10-25-2024 End: 10-25-2024 ambulatory Leda [place] Facility:[facility] Start: 09-06-2024 End: 09-06-2024 Patient encounter procedure Adithya [place] [facility] Work Phone: Start: 09-06-2024 End: 09-06-2024 ambulatory Leda [place] Facility:[facility] Start: 06-23-2024 ambulatory Health Risk Assessment Facility:[facility] Start: 10-30-2023 End: 10-30-[address] Tadeo Obregon Work Phone: [facility] Work Phone: Start: 10-30-2023 End: 10-30-[address] Tadeo Obregon Work Phone: [facility] Work Phone: Start: 10-15-2023 End: 10-15-2023 ambulatory [facility] Work Phone: Start: 10-15-2023 End: 10-15-2023 Patient encounter procedure [facility]-Outpatient Breast Imaging Work Phone: Start: 06-03-2022 ambulatory ARJUN CHAMORRO [facility] Start: 10-27-2021 ambulatory LAUREEN SYED [facility] Start: 08-04-2021 End: 08-04-2021 Emergency department patient visit [facility] Start: 08-04-2021 End: 08-04-2021 Emergency department patient visit Nathaniel Garza MD Work Phone: [facility] Emergency Department Start: 07-27-2021 ambulatory TADEO OBREGON [facility] Start: 06-24-2021 ambulatory ARJUN CHAMORRO [facility] Start: 05-06-2018 End: 05-06-2018 Patient encounter Franck Pate Facility:[facility] Procedures Date Procedure Procedure Detail Performing Clinician Start: 04-06-[address] lAfred Wright MD Work Phone: Start: 04-03-2025 Gram stain microscopy Lucia Wright MD Work Phone: Start: 04-03-2025 End: 04-03-[address] Leda arreguin MD Work Phone: Start: 03-08-2025 Follicle stimulating hormone measurement Dr. Leda Wright MD Work Phone: Comment on above: FEMALE:Follicular: 1 .4 - 18.1 mIU/mLMidcycle: 3.4 - 33.4 mIU/mLLuteal: 1.5 - 9.1 mIU/mLPost Menopause: 23.0 - 116.3 mIU/mLMALE: 1.4 - 18.1 mIU/mL Start: 10-30-2024 US scan of thyroid Dr. Leda Wright MD Work Phone: Start: 10-30-2024 Screening mammography Lucia Wright MD Work Phone: Start: 10-30-[address] Tadeo Obregon Work Phone: Start: 10-15-2023 Screening mammography Start: 08-04-2021 Complete blood count with white cell differential, automated Nathaniel Garza MD Work Phone: Start: 08-04-2021 Comprehensive metabo lic panel Nathaniel Garza MD Work Phone: Plan of Treatment Date Care Activity Detail Author Start: 04-24-2025 Hepatitis C antibody measurement [facility] Start: 04-24-2025 End: 04-24-2025 [facility] Start: 04-06-2025 Pelvic echography Pelvic w/ Transvaginal [facility] Start: 04-06-2025 US Pelvis [facility] Start: 2004 Screening for malignant neoplasm of cervix CERVICAL CANCER SCREENING DISCUSSION [facility] Start: 2002 Third diphtheria, tetanus and acellular pertussis (DTaP) vaccination TDAP (ADULT) [facility] Start: 2001 Tetanus vaccination TETANUS [facility] Start: 1998 HIV screening HIV SCREENING DISCUSSION [facility] Start: 1988 COVID-19 VACCINE (1) COVID-19 VACCINE (1) [facility] Start: 1983 Hepatitis C antibody, confirmatory test HEPATITIS C VIRUS SCREENING [facility] Hepatitis B virus surface Ag [Presence] in Serum [facility] Patient Education ED NEEDLE STIC K Health Care Worker [facility] Work Phone: Source specific culture [facility] US Pelvis [facility] Immunizations Immunization Date Immunization Notes Care Provider [facility] 07-19-2024 influenza, seasonal, injectable, preservative free Dr. Leda Wright MD Work Phone: [facility] 07-08-2023 influenza, injectabl e, quadrivalent, preservative free [facility] 08-01-2021 Seasonal, quadrivale nt, recombinant, injectable influenza vaccine, preservative free Dr. Leda Wright MD Work Phone: [facility] 06-26-2020 influenza, injectabl e, quadrivalent, preservative free Dr. Leda Wright MD Work Phone: [facility] 07-03-2019 influenza, injectabl e, quadrivalent, preservative free Dr. Leda Wright MD Work Phone: [facility] 07-13-2018 influenza, injectabl e, quadrivalent, preservative free Dr. Leda Wright MD Work Phone: [facility] 06-16-2017 influenza, injectabl e, quadrivalent, preservative free Dr. Leda Wright MD Work Phone: [facility] 06-11-2016 influenza, injectabl e, quadrivalent, preservative free Dr. Leda Wright MD Work Phone: [facility] 03-24-2016 measles, mumps and rubella virus vaccine [facility] 03-24-2016 tetanus toxoid, redu franci diphtheria toxoid, and acellular pertussis vaccine, adsorbed [facility] 03-01-2003 hepatitis B vaccine, pediatric or pediatric/adolescent dosage [facility] 07-11-2001 hepatitis B vaccine, pediatric or pediatric/adolescent dosage [facility] 06-13-2001 hepatitis B vaccine, pediatric or pediatric/adolescent dosage [facility] 06-01-1995 measles, mumps and rubella virus vaccine [facility] Payers Date Payer Category Payer Unknown [id number] 2024 Self-pay [id number] 2021 Unknown [facility] [id number] 2021-Present [address] [address] [place] [address] [id number] 2021 Unknown [id number] 2018 Unknown 2015 Unknown [id number] 1983 Unknown [id number] [id number] 1983 Unknown [id number] 2..840.1.066414.3.579.2.983 1983 Unknown [id number] 2..840.1.712878.3.579.2.983 1983 Unknown [id number] 2.16.840.1.744236.3.579.2.983 1983 Unknown [id number] 2.16.840.1.375688.3.579.2.983 1983 Unknown [id number] 2.16.840.1.693409.3.579.2.983 Unknown [id number] 2.16840.1.068547.3.579.2.462 Unknown [id number] 2.16840.1.231445.3.579.2.462 Unknown [id number] 2.16840.1.863162.3.579.2.462 Unknown [id number] 2.16840.1.447373.3.579.2.462 Unknown [id number] 2.840.1.286253.3.579.2.462 Unknown [id number] 2.840.1.450149.3.579.2.462 Unknown [id number] 2.840.1.379229.3.579.2.462 Unknown [id number] 2.16840.1.571470.3.579.2.462 Unknown [id number] 2.840.1.010741.3.579.2.462 Unknown [id number] 2.840.1.173948.3.579.2.462 Unknown [id number] 2.840.1.877526.3.579.2.462 Unknown [id number] 2.840.1.617191.3.579.2.462 Unknown [id number] 2.840.1.035235.3.579.2.462 Social History Date Type Detail Facility [facility] Start: 08-04-2021 Tobacco use and exposure Smokeless tobacco non-user [facility] Start: 08-04-2021 Alcohol intake Lifetime non-d daniel (finding) [facility] Start: 08-04-2021 History SDOH Alcohol Frequency 1 [facility] Start: 1985 Sex Assigned At Not on file [employer] Exposure to SARS-CoV -2 (event) Yes [facility] Start: 1985 Sex Assigned At Female [facility] Start: 03-21-2024 End: 04-24-2025 Tobacco smoking status NHIS Ex-smoker (finding) [facility] Start: 12-07-2024 Sex Female (finding) [facility] Mental Status Date Assessment Result Facility 04-24-2025 Cognitive function Level Of Cons ciousness Awake;Alert;Appropriate;Follow s Commands [facility] Work Phone: Clinical Notes 08-04-2021 to 04-07-2025 Note Date & Type Note Facility 04-07-2025 Radiology Diagnostic study note [facility] Imaging Services [address] [place], [place] [address] Pelvic w/ Transvaginal MR#: [id number] Acct: [id number] Name: RAÚL CABRERA Rep #: [id number] : 1985 F 40 From: Elida Kruse MD PCP: Dr. Leda Wright MD Status: REG CLI Study:Pelvic w/ Transvaginal Date of Exam: 04/06/25 Exam# [id number] Ordering Dr: Carlee Tai WELLFIELD TECHNICIAN WELLFIELD TECHNICIAN-C PROCEDURE: PELVIC W/ TRANSVAGINAL 04/06/2025 REASON FOR EXAM: AUB TECHNIQUE: PELVIC W/ TRANSVAGINAL COMPARISON: None. FINDINGS: Measurements: Uterus: 10.5 x 5.2 x 5.9 cm for volume of 165.9 mL Endometrial Thickness: 0.7 cm Right Ovary: 4.2 x 2.9 x 3.3 cm for volume of 20.5 mL . Left Ovary: 2.6 x 3.0 x 2.6 cm for volume of 10.7 mL. Uterus: Anteverted. Normal contour echotexture. Heterogeneous lesion near the uterine fundus measuring 1.2 x 1.0 x 1.2 cm. Endometrium: Normal echotexture. Trace fluid in the cervical canal. Right ovary: Multiple prominent follicles, approximately 10 on a single image. Left ovary: Questionable hypoechoic avascular lesion near the periphery measuring less than 1 cm could represent a corpus luteum or hemorrhagic cyst (O-RADS 1 or 2), and does not require follow-up. Cul-de-sac: Minimal free fluid in the pelvis within normal limits. Color Doppler: Normal color flow doppler signal at both ovaries. US/Pelvic w/ Transvaginal IMPRESSION: 1. Polycystic morphology of the right ovary. Correlate for clinical evidence of PCOS. 2. Leiomyoma at the uterine fundus measuring 1.2 cm. Reading Location: [facility] CC: LINK Tai; Dr. Leda Wright MD ~ Explosive Operator Fuse: Signed [facility] 04-03-2025 Evaluation note Diagnosis Onset Date Resolution Abnormal uterine bleeding (AUB) acute April 03, 2025 11:33am Genital warts acute April 03, 2025 11:33am Long-term current use of testosterone replacement therapy acute April 03, 2 025 11:33am Possible exposure to STD noneactive April 03, 2025 11:33am Vaginal discharge noneactive April 032024 11:33am [facility] Work Phone: [phone] 315-261503-07-2025 Evaluation note* Diagnosis Onset Date Resolution Status Admit Date Thyroid nodule acute November 24, 2024 12:44pm [facility] Work Phone: 1(883) 597-490502-05-2025 Evaluation note* Diagnosis Onset Date Resolution Status Admit Date Irregular menses acute October 25, 2024 11:07am Thyroid nodule acute October 252024 11:07am Encounter for routine gynecological examination noneactive ua 2024 11:07am Thyroid nodule acute November 24, 2024 12:44pm [facility] Work Phone: 1(436) 730-189311-15-2021 Emergency department Note* Alisson Myers RN - 08/04/2021 7:03 PM EST Reported off to Bereket PHILLIPS at this time * Alisson Myers RN - 08/04/2021 5:34 PM EST Radha in RT notified of breathing treatment * Nathaniel Garza MD - 08/04/2021 4:44 PM EST Emergency Department Report [facility] EMERGENCY DEPARTMENT Service Date:.08/04/21 PCP: Arjun Chamorro Chief Complaint: Chief Complaint Patient presents with Chest Pain Rapid Heart Rate HPI Raúl Cabrera is a 36 y.o. 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 There are no acute ST-T changes and no old EKGs to compare this to. Moderate Sedation Procedure: No ED Summary/MDM patient's states she has felt stressed and some anxiety. This does seem like it has increased sinceshe was started on the Lexapro. She is having central chest burning with inspiration and expirationand will see what albuterol treatment does. We will also get a baseline electrolytes and labs and compared to what she had done just a couple weeks ago Labs had a sugar that was mildly elevated at 121. Potassium was 3.4. D-dimer was negative. Sat remained 100% and she states she may have had just a brief slight decrease in her chest feeling with thebreathing treatment but did not want to pursue [...] patient with above information. . . Nathaniel Garza MD 08/04/211923 Nathaniel Garza MD 08/04/211942 * Alisson Myers RN - 08/04/2021 4:21 PM EST Pt states that she is feeling chest pressure with feeling of SOB. Pt states that her blood pressurehas been higher than her normal. Pt also states that she started birthcontrol 3 weeks ago. Pt is resting comfortable and denies any needs at this time * Cande Correia RN - 08/04/2021 3:39 PM EST Bed: E011 Expected date: Expected time: Means of arrival: Comments: JIC documented in this [facility]11-15-2021 Hospital Discharge instructions* Instructions* Nathaniel Garza MD - 08/04/[address] CHAMORRO IN THE MORNING TO ARRANGE FOR FOLLOW UP BASED ON HOW YOU ARE FEELING. YOUR SUGAR WASUP A LITTLE AND YOUR POTASSIUM WAS SLIGHTLY LOW AND GIVEN A ONE TIME BOOST AND BOTH MAY NEED RECHECKED. HOLD THE LEXAPRO FOR NOW AND TRY THE HYDROXYZINE (CAN START WITH 1/2 PILL) FOR ANXIETY FEELING. GET RECHECKED EARLIER IF FEVER OR WORSE BREATHING CONSIDER PULSE OX CHECK) OR PUS HEART RATE STAYING 130 OR HIGHER. [facility] Diagnosis Chest pain on breathing- Primary Painful respiration Hypokalemia Hypopotassemia Elevated glucose Other abnormal glucose documented [facility] this [facility] noteNo assessment information availableW[facility] Work Phone: Evaluation note* Diagnosis Onset Date Resolution Status Bladder spasms acute [facility] Work Phone: Evaluation note* Diagnosis Onset Date Resolution Status Admit Date Abnormal uterine bleeding (AUB) acut e April 03, 2025 11:33am [facility] Work Phone: Reason for referral (narrative)No reason for referral information availableWOhioHealth [facility] Work Phone: Summary Purpose Family History Relationship Condition Age at Onset Recorded Date/T tiffanie father Myocardial infarction 48 Cardiac disease Unknown Cerebrovascular accident (CVA) 60 Abdominal aortic aneurysm (AAA) Unknown Atrial fibrillation Unknown sister Autoimmune disease Unknown mother Disorder of thyroid Unknown Advance Directives Advance Directive Response Recorded Date/ Time Do you have a Healthcare Power of Consulting Sales Manager? 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) October 25, 2024 1 1:07am SCREENING October 30, 2024 12:23pm THYROID NODULE November 24, 2024 12:4 4pm FNA R MID THYROID NODULE November 24, 2024 2:03pm Reason for Visit Admit Date Irregular menses October 25, 2024 1 1:07am Thyroid nodule October 25, 2024 1 1:07am Encounter for routine gynecological exam ination October 25, 2024 11:07am Thyroid nodule November 24, 2024 12:4 4pm Chief Complaint Admit Date RT THYROID NODULE November 24, 2024 9:30 am THYROID NODULE November 24, 2024 12:4 4pm FNA R MID THYROID NODULE November 24, 2024 2:03pm Reason for Visit Admit Date Thyroid nodule November 24, 2024 12:4 4pm Chief Complaint Admit Date possible BV *copay $20 April 03, 2025 1 1:33am Reason for Visit Admit Date Abnormal uterine bleeding (AUB) March 11:33am Chief Complaint Admit Date possible BV *copay $20 April 03, 2025 1 1:33am AUB April 06, 2025 2:22 pm Reason for Visit Admit Date Abnormal uterine bleeding (AUB) March 11:33am Genital warts April 03, 2025 11:3 3am Long-term current use of testosterone re placement therapy April 03, 2025 11:33am Possible exposure to STD April 03, 2025 11:33am Vaginal discharge April 03, 2025 11:3 3am Chief Complaint Admit Date possible BV *copay $20 April 03, 2025 1 1:33am AUB April 06, 2025 2:22 pm occup exp April 24, 2025 10: 47am Additional Source Comments INFORMATION SOURCE (unrecogn ized section and content) DATE CREATED AUTHOR 05/06/2018 [facility] DATE CREATED AUTHOR AUTHOR'S ORGANIZ ATION 06/16/2022 [facility] DATE CREATED AUTHOR AUTHOR'S ORGANIZ ATION 04/14/2025 [facility] Reason for Visit (unrecogniz ed section and content) Reason Comments Chest Pain Rapid Heart Rate Scheduled Active and Recently Administ ered Medications (unrecognized section and content) Medication Order 08/02/2021 08/03/2021 08/04/2021 albuterol (PROVENTIL) (2.5 MG/3ML) 0.083% inhalation solution 1.25 mg (COMPLETED) 1.25 mg, Nebulization, ONCE, 1 dose, On Wed08/04/21 at 1815, Just 1/2 and finish full only if helping thanks 1744 (Given - Provid er: Radha Helm, MOSAICIST - Comment: used unit dose x [address] Garza) potassium chloride (K-DUR) tablet ER 20 mEq (COMPLETED) 20 mEq, Oral, ONCE, 1 dose, On Wed08/04/21 at 2000, Swallow tablets whole; do not crush, chew, or suck on tablet. Tablet may also be broken in half and each half swallowed separately. 194 (Given - Provid er: Fabien Paiz RN) Care Teams (unrecognized sec tion and content) Team Status: Active Member Role Status Dates Dr. Leda Wright MD Primary Care Provider Active Team Status: Active Member Role Status Dates Dr. Leda Wright MD Primary Care Provider Active Start: November 24, 2024 Dr. Nathaniel Ren MD Attending Provider Active Start: November 24, 2024 Dr. Nathaniel Ren MD Referring Provider Active Start: November 24, 2024 Team Status: Inactive Member Role Status Dates Dr. Leda Wright MD Primary Care Provider Active Start: November 24, 2024 End: November 24, 2024 Dr. Leda Wright MD Referring Provider Active Start: November 24, 2024 End: November 24, 2024 Dr. Franck Dupont MD Attending Provider Active Start: November 24, 2024 End: November 24, 2024 Team Status: Inactive Member Role Status Dates Dr. Leda Wright MD Primary Care Provider Active Start: November 24, 2024 End: November 24, 2024 Dr. Franck Dupont MD Attending Provider Active Start: November 24, 2024 End: November 24, 2024 Dr. Franck Dupont MD Referring Provider Active Start: November 24, 2024 End: November 24, 2024 Team Status: Inactive Member Role Status Dates Dr. Leda Wright MD Primary Care Provider Active Start: March 08, 2025 End: March 08, 2025 LULA BRIGGS Attending Provider Active Start: March 08, 2025 End: March 08, 2025 LULA BRIGGS Referring Provider Active Start: March 08, 2025 End: March 08, 2025 Accounts Receivable Processor Relationship Specialty Start Date End Date Arjun Chamorro, SELLING SPECIALIST-MOTORCYCLE MECHANIC [address] [place] [address] PCP - General Nurse Practitioner - Family 02/16/21 Team Status: Active Member Role Status Dates Dr. Tadeo Obregon MD Primary Care Provider Active Team Status: Inactive Member Role Status Dates Dr. Tadeo Obregon MD Primary Care Provider Active LEONIE GORDON Attending Provider, Referring Provider Active Team Status: Inactive Member Role Status Dates Dr. Tadeo Obregon MD Primary Care Provider, Referrin g Provider Active Nubia Ahumada NP-C Attending Provider Active Team Status: Inactive Member Role Status Dates Dr. Tadeo Obregon MD Primary Care Provider Active Nubia Ahumada NP-C Attending Provider, Referring Provider Active Team Status: Inactive Member Role Status Dates Dr. Leda Wright MD Primary Care Provider Active Start: September 06, 2024 End: September 06, 2024 Dr. Leda Wright MD Referring Provider Active Start: September 06, 2024 End: September 06, 2024 Adithya Sullivan PA, PA Attending Provider Active Start: September 06, 2024 End: September 06, 2024 Team Status: Inactive Member Role Status Dates Dr. Leda Wright MD Primary Care Provider Active Start: October 25, 2024 End: October 25, 2024 Dr. Leda Wright MD Referring Provider Active Start: October 25, 2024 End: October 25, 2024 LINK Cormier Attending Provider Active Start: October 25, 2024 End: October 25, 2024 Team Status: Inactive Member Role Status Dates Dr. Leda Wright MD Primary Care Provider Active Start: October 25, 2024 End: October 25, 2024 LINK Cormier Attending Provider Active Start: October 25, 2024 End: October 25, 2024 LINK Cormier Referring Provider Active Start: October 25, 2024 End: October 25, 2024 Team Status: Inactive Member Role Status Dates Dr. Leda Wright MD Primary Care Provider Active Start: October 30, 2024 End: October 30, 2024 LINK Cormier Attending Provider Active Start: October 30, 2024 End: October 30, 2024 LINK Cormier Referring Provider Active Start: October 30, 2024 End: October 30, 2024 Team Status: Active Member Role/Relationship Status Dates Dr. Leda Wright MD Primary Care Provider Active Team Status: Inactive Member Role/Relationship Status Dates Dr. Leda Wright MD Primary Care Provider Active Start: March 08, 2025 End: March 08, 2025 LULA BRIGGS Attending Provider Active Start: March 08, 2025 End: March 08, 2025 LULA BRIGGS Referring Provider Active Start: March 08, 2025 End: March 08, 2025 Team Status: Inactive Member Role/Relationship Status Dates Dr. Leda Wright MD Primary Care Provider Active Start: April 03, 2025 End: April 03, 2025 Dr. Leda Wright MD Referring Provider Active Start: April 03, 2025 End: April 03, 2025 Carlee Tai NP, NP-C Attending Provider Active Start: April 03, 2025 End: April 03, 2025 Team Status: Inactive Member Role/Relationship Status Dates Dr. Leda Wright MD Primary Care Provider Active Start: April 03, 2025 End: April 03, 2025 Dr. Anna Tracey DO Attending Provider Activ e Start: April 03, 2025 End: April 03, 2025 Team Status: Active Member Role/Relationship Status Dates Dr. Leda Wright MD Primary Care Provider Active Start: April 06, 2025 Carlee Tai WELLFIELD TECHNICIAN, WELLFIELD TECHNICIAN-C Attending Provider Active Start: April 06, 2025 Carlee Tai WELLFIELD TECHNICIAN, WELLFIELD TECHNICIAN-C Referring Provider Active Start: April 06, 2025 Team Status: Inactive Member Role/Relationship Status Dates Dr. Leda Wright MD Primary Care Provider Active Start: April 06, 2025 End: April 06, 2025 Carlee Tai WELLFIELD TECHNICIAN, WELLFIELD TECHNICIAN-C Attending Provider Active Start: April 06, 2025 End: April 06, 2025 Carlee Tai WELLFIELD TECHNICIAN, WELLFIELD TECHNICIAN-C Referring Provider Active Start: April 06, 2025 End: April 06, 2025 Team Status: Inactive Member Role/Relationship Status Dates Dr. Leda Wright MD Primary Care Provider Active Start: April 24, 2025 End: April 24, 2025 Dr. Jamari Flores , Emergency Provider Active Start: April 24, 2025 End: April 24, 2025 Goals (unrecognized section and content) Goals may be documented in a n alternate sectionGoals may be documented in an alternate sectionGoals may be documented in an alternate sectionGoals may be documented in an alternate sectionGoals may be documented in an alternate sectionGoals may be documented in an alternate sectionGoals may be documented in an alternate sectionGoals may be documented in an alternate section FOR RECORDS PERTAINING TO PATIENTS WHO ARE [...] BE BASED ON THE PRIMARY CLINICAL RECORDS. [facility] [employer] [facility]. provides no warranty or guarantee of the accuracy or completeness of information in this document.
--- OUTSIDE RECORDS SUMMARY | 2025-04-24 19:00 | XMS RPT_ITS | CCD ---
Author Organization [facility] CliniSyar Care Team Providers Care Edge Stitcher Name Role Phone Franck Pate Unavailable Unavailable Franck Pate Unavailable Unavailable No Doctor Assigned, Nodr Unavailable Unavail able [place] INVESTOR RELATIONS COORDINATOR-NURSE PRIVATE DUTY, Arjun D Primary Care Provider ASHTYN, ARJUN [...] Referring Unavailable ASHTYN, ARJUN Primary Care Unavailable ASHTYN, ARJUN Attending Unavailable Dr. Tadeo Obregon Primary Care Provider Dr. Tadeo Obregon Referring Provider [phone] LINK Ahumada Attending Provider Dr. Leda Wright [...] Kyle MCDANIEL, Leda Primary Care Provider [phone] Kyle MCDANIEL, Dr. Tompkins Referring Provider Zaire MARINE CARGO INSPECTOR-CCarlee Attending Provider Dr. Anna Tracey DO Attending Provider Zaire MARINE CARGO INSPECTOR-C, Carlee Referring Provider Kyle, Leda Primary Care Unavailable Yudith Villanueva Attending Unavailable RoseliamanYudith Referring Unavailable [place], Leda Primary Care Unavailable Yudith Villanueva Attending Unavailable Yudith Villanueva Referring Unavailable Kyle, Leda Primary Care Unavailable Anna Tracey Attending Unavailabl e [place], Leda Primary Care Unavailable JuniorFuady Referring Unavailable Carlee Tai Attending Unavailable Assessment, Health Risk Attending Unavaila ble Assessment, Health Risk Referring Unavaila ble [place], Leda Primary Care Unavailable CHANG ZUNIGA Attending Unavailable CHANG ZUNIGA Referring Unavailable Kyle, Leda Primary Care Unavailable JuniorCarlee Attending Unavailable [place], Leda Primary Care Unavailable [place], Leda Referring Unavailable [place], Leda Primary Care Unavailable Franck Dupont Attending Unavailable [place], Leda Referring Unavailable Kyle, Leda Primary Care Unavailable Yudith Villanueva Attending Unavailable Kyle, Leda Referring Unavailable Kyle, Leda Referring Unavailable Adithya Sen Attending Unavailable [place], Leda Primary Care Unavailable Kyle, Leda Primary Care Unavailable Nathaniel Ren Attending Unavailable Nathaniel Ren Referring Unavailable [place], Leda Primary Care Unavailable Alisson Durant Attending Unavailable [place], Leda Referring Unavailable [place], Leda Primary Care Unavailable Franck Dupont Attending Unavailable Franck Dupont Referring Unavailable Dr. Jamari Flores DO Emergency Provider Allergies Allergy Classification Reported Allergen(s) Allergy Type Date of Onset Reaction(s) Facility (1 source) No Known Medication Allergies; Translations: [No Known Medication Allergies] Propensity to adverse reactions to drug (disorder) [facility] Repository Medications Current Medications Medication Drug [...] PO EVERY MORNING April 03, 2025 12:00am [place] (Nk) (2 sources) Start: 11-24-2024 [place] (Nk) Active November 24, 2024 1:00am norethindrone [...] 04-24-2025 HBV surface Ab Ql (S) [facility] Comment on above: <8.5 mIU/mL: Non-[place] ctive8.5<= x <11.5 mIU/mL: Indeterminate>=11.5 mIU/mL: Reactive Non Reactive: Inconsistent with immunity less than <10 mIU/mL Reactive: Consistent with immunity greater than or equal to 10 mIU/mL Genital Culture Comprehensiv jacobo 04-07-2025 VAC Reason for Exam: Vaginal odor No yeast or Neisseria isolated. Streptococcus group B Amount Growth 1+ G. vaginalis (Presumptive) G. vaginalis (Presumptive) Normal [facility] Comment on above: Performed By: #### L 7000.1800, M100.3200, M1 #### [facility] [address] [place], [place], [address] Chlamydia/GC MEERA aptimaon CHLAMY,NUC ACID Negative Normal Negative [facility] Comment on above: Performed By: #### L 7000.1800, M100.3200, M100 #### [facility] [address] [place], [address] GC BY NUC ACID Negative Normal Negative [facility] Comment on above: Result Comment: Perf ormed at: =G - [facility] [address] [place] [id number] Outreach Educator: Delmy Lawson MD, Phone: [phone] Performed By: #### L 7000.1800, M100.3200, M100.2000 #### [facility] [address] [place], [address] Pelvic w/ Transvaginalon Pelvic w/ Transvaginal [facility] Imaging Services [address] [place] [address] Pelvic w/ Transvaginal MR#: [id number] Acct: [id number] Name: RAÚL CABRERA Rep #: [id number] : 1985 F 40 From: Иван Kruse MD PCP: Dr. Leda Wright MD Status: REG CLI Study: Pelvic w/ Transvaginal Date of Exam: 04/06/25 Exam# [id number] Ordering Dr: Carlee Tai MARINE CARGO INSPECTOR MARINE CARGO INSPECTOR -C PROCEDURE: PELVIC W/ TRANSVAGINAL 04/06/2025 REASON [...] uterine fundus measuring 1.2 cm. Reading Location: [id number] CC: LINK Tai; Dr. Leda Wright MD Shoe Salesperson: Signed Normal [facility] Chlamydia trachomatis rRNA d etection by probe and target amplification methodOrdered By: Carlee Tai on 04-03-2025 C. trachomatis rRNA MEERA+probe Ql (Unsp spec) Negative Negative [facility] Genital cultureOrdered By: Augustine Tai on 04-03-2025 Source specific culture G. vaginalis (Presumptive) Abnormal [facility] Gram Stainon 04-03-2025 GS Reason for Exam: Vaginal odor Gram Stain 4+ Gram variable joan No White Blood Cells No Gram negative diplococci Score = 8 Interpretation: 0-3 Normal, 4-6 Intermediate, 7-10 Positive BV Normal [facility] Comment on above: Performed By: #### L 7000.1800, M100.3200, M100.2000 #### [facility] [address] [place] [address], [id number] Gram stainOrdered By: Carlee Tai on 04-03-2025 Microscopic observation Gram stain Nom (Unsp spec) [facility] Neisseria gonorrhoeae nuclei c acid detection by amplified probe techniqueOrdered By: Carlee Tai on 04-03-2025 N. gonorrhoeae DNA MEERA+probe Ql (Unsp spec) Negative Negative [facility] Comment on above: Performed at: =[address] [id number] Director: Delmy Lawson MD, Phone: [phone] No Panel InformationOrdered By: Carlee Tai on 04-03-2025 POC Trichomonas (Rapid) Negative [facility] POC Bacterial Vaginitis (Rapid) Negative [facility] Pre Certification Specialist Office Visit Reporton 04-03-2025 Pre Certification Specialist Office Visit Report [facility]'[address], [address] [place] [address] OFFICE VISIT Date of Service: 04/03/25 MR#: [id number] Acct: [id number] Name: RAÚL CABRERA Rep #: [id number] : 1985 Provider: LINK rodriguez Age/Sex: 40/F Location[facility] Status: Signed Intake Vital Signs 11/24/24 13:01 04/03/25 11:35 04/03/25 11:44 Height 5 ft 10 in 5 ft 10 in 5 ft 10 in Weight: 156 lb 4 oz BMI 22.4 BP 118/80 Intake Visit Reasons: possible BV *copay $20 Chief Complaint: possible BV Clin Nurse Spec Required: No Is patient in pain?: No [...] problems Surgical History History of surgical procedure [place] teeth extracted Family History Father Myocardial infarction, [...] Possible exp (more content not included)... Normal [facility] Sex Hormone-binding Globulin on 03-14-2025 SHBG 54.3 nmol/L Normal 24.6-122.0 [facility] Comment on above: Result Comment: Perf ormed at: - [facility] [id number] Outreach Educator: Srini Sexton PhD, Phone: [phone] Performed at: - [facility] [id number] Outreach Educator: Rosalina Garcia MD, Phone: [phone] Performed By: #### L 7000.1800, M100.3200, #### [facility] [address] [place], [address] Testosterone, Total / Freeon 03-14-2025 TESTOSTER,FREE 5.27 ng/dL Abnormal 0.10-0.85 [facility] Comment on above: Order Comment: N Performed By: #### L 7000.1800, M100.320, #### [facility] [address] [place], [address] TESTOSTER,TOTAL 202 ng/dL High 4-50 [facility] Comment on above: Order Comment: N Performed By: #### L 7000.1800, M100.320, M1 #### [facility] [address] [place], [address] TESTOSTERONE,%F 2.61 Normal 0.50-2.80 [facility] Comment on above: Order Comment: N Performed By: #### L 7000.1800, M100.3200, M100.2000 #### [facility] [address] [place], [place], [address] Estradiolon 03-08-2025 ESTRADIOL 311.0 pg/mL Normal [facility] Comment on above: Result Comment: FEMA [...] Performed By: #### L 0.1800, M100.3199, #### [facility] [address] [place], [place], [id number] Follicle Stimulating Hormone on 03-08-2025 FSH 4.9 mIU/mL Normal [facility] Comment on above: Result Comment: FEMA LE: Follicular: 1.4 - 18.1 mIU/mL Midcycle: 3.4 - 33.4 mIU/mL Luteal: 1.5 - 9.1 mIU/mL Post Menopause: 23.0 - 116.3 mIU/mL MALE: 1.4 - 18.1 mIU/mL Performed By: #### L 0.1800, M100.320, #### [facility] [address] [place], [place], [id number] Free testosterone percentage on 03-08-2025 Testosterone Free/Testosterone.total [Mass fraction] 2.61 % 0.50-2.80 [facility] Serum or plasma estradiol me asurement after follitropin dose (mass/volume)on 03-08-2025 E2 post dose follitropin [Mass/Vol] 311.0 pg/mL [facility] Comment on above: FEMALES ADULT FEMALE [...] Testosterone Free [Mass/Vol] 5.27 ng/dL High 0.10-0.85 [facility] Serum or plasma sex hormone binding globulin measurement (moles/volume)on 03-08-2025 Sex hormone binding globulin [Moles/Vol] 54.3 nmol/L 24.6-122.0 [facility] Comment on above: Performed at: [facility] [address] [id number] Director: Srini Sexton PhD, Phone: [phone] at: [facility] [id number] Director: Rosalina Garcia MD, Phone: [phone] Testosterone, totalon 2024 Testosterone [Mass/Vol] 202 ng/dL High 4-50 [facility] Non-gynecologic cytology rep ortOrdered By: Nathaniel Ren on 11-30-2024 Study report [facility] Other Phone: Special Stain Group IIon Special Stain Group II ----- ---- Patient Age/Sex Location Account Attending Physician ---- RAÚL CABRERA 39/F [facility] [id number] Dr. Franck Dupont MD ---- Specimen: [id number] Received: 11/24/24 Status: MAYRA Cornejolatonya Num: [id number] Spec Type: Fluid Subm Dr: Dr. Franck [...] nodule. Submitted for staining. Mr 11/24/2024 CPT: 78127v7,85162 , TC:5 Signed (signature on file) Dr. Nathaniel Ren MD 11/30/24 1115 ---- Normal [facility] Comment on above: Performed By: #### P SSII #### [facility] [address] [place] [address] [place], [address] Surgery Visit Reporton 11-24 Surgery Visit Report [facility] [address] [place] [address] OFFICE VISIT Date of Service: 11/24/24 MR#: [id number] Acct: [id number] Name: RAÚL CABRERA Rep #: [id number] : 1985 Provider: Dr. 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 [...] Cardio Cardiovascu (more content not included)... Normal [facility] SCRN MAMM (CAD)W/VICTORIAIsabel Montaño n 10-30-2024 SCRN MAMM (CAD)W/VICTORIA HUMPHREYAT [facility] Imaging Services [address] [place] [address] SCRN MAMM (CAD)W/VICTORIA PATEL MR#: [id number] Acct: [id number] Name: RAÚL CABRERA Rep #: [id number] : 1985 F 39 From: Gillian Braun MD PCP: Dr. Leda Wright MD Status: REG CLI Study: SCRN MAMM (CAD)W/VICTORIA BILAT Date of Exam: 10/21 Exam# [id number] Ordering Dr: Yudith Villanueva PROCEDURE: SCRN MAMM [...] of the results by letter. Reading Location: [facility] CC: LINK Villanueva; Dr. Leda Wright MD Shoe Salesperson: Signed Normal [facility] Thyroidon 10-30-2024 Thyroid [facility] Imaging Services [address] [place] [id number] Thyroid MR#: [id number] Acct: [id number] Name: RAÚL CABRERA Rep #: [id number] : 1985 F 39 From: Marco A de leon MD PCP: Dr. Leda Wright MD Status: REG CLI Study: Thyroid Date of Exam: 10/30/24 Exam# [id number] Ordering Dr: Yudith Villanueva PROCEDURE: THYROID REASON [...] of the thyroid. Biopsy recommended. Reading Location: [id number] CC: MARINE CARGO INSPECTORKenia Villanueva; Dr. Leda Wright MD Shoe Salesperson: Signed Normal [facility] Thyroid Peroxidase ABon 02-0 -2024 THYR PEROX AB < 9 Normal 0-34 [facility] Comment on above: Result Comment: Perf ormed at: [facility] [address] [id number] Outreach Educator: Srini Sexton PhD, Phone: [phone] Performed By: #### L 7000.1800, M100.3200, M1.1999 #### [facility] [address] [place], [address] Direct serum free thyroxine (FT4) measurementOrdered By: Yudith Villanueva on 10-25-2024 Free T4 [Mass/Vol] 0.86 ng/dL 0.76-1.46 [facility] Free T3on 10-25-2024 Free T3 [Mass/Vol] 2.6 pg/mL Normal 2.18-3.98 [facility] Comment on above: Performed By: #### L 506.0400, L501.9520, L3300.6900, L501.43060 #### [facility] [place], [address] Free [id number] By: Yudith chandler on 10-25-2024 Free Triiodothyronine (T3) pg/dL 2.6 pg/mL 2.18-3.98 [facility] Pre Certification Specialist Office Visit Reporton 10-25-2024 Pre Certification Specialist Office Visit Report [facility]'[address], [address] [place] [address] OFFICE VISIT Date of Service: 10/25/24 MR#: [id number] Acct: [id number] Name: RAÚL CABRERA Rep #: [id number] : 1985 Provider: LINK Mclean Age/Sex: 39/F [place] [facility] Status: Signed Intake Vital Signs 03/21/24 11:00 [...] Method room air Intake Visit 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) Chief Complaint: Annual Is patient in pain?: No Allergies No Known Allergies Allergy (Verified 10/25/24 11:31) PFSH Medical History Situational anxiety Allergies No active medical problems Surgical History History of surgical procedure [place] teeth extracted Family History Father Myocardial infarction, Onset Age: 48 Heart disease CVA (cerebral vascular accident), Onset Age: 60 AAA (abdominal aortic aneurysm) Afib Sister Autoimmune disease lupus Mother Thyroid disorder Social History adopted: No household members: children number of children: 1 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 Last PAP: 2023 at [facility] per patient; reports neg/neg. [...] external appear (more content not included)... Normal [facility] T4 Free Directon 10-25-2024 T4 FREE DIRECT 0.86 ng/dL Normal 0.76-1.46 [facility] Comment on above: Performed By: #### L 7000.1800, M100.3200, M100.1999 #### [facility] [address] [place], [address] TPO Ab QnOrdered By: Yudith Villanueva on 10-25-2024 Thyroid Peroxidase Antibodies < 9 IU/mL 0-34 [facility] Comment on above: Performed at: [address] [id number] Director: Sriin Sexton PhD, Phone: [phone] TSH QnOrdered By: Yudith Mclean on 10-25-2024 Thyroid Stimulating Hormone (TSH) 1.930 uIU/mL 0.358-3.740 [facility] Thyroid Stim Hormone (TSH)on 10-25-2024 TSH 1.930 uIU/mL Normal 0.358-3.740 [facility] Comment on above: Performed By: #### L 506.0400, L501.9520, L3300.6900, L501.92172 #### [facility] [address] [place], [address] Laboratory - Microbiology an d Antimicrobial susceptibilityon 09-06-2024 SARS-CoV-2 (COVID-19) RNA MEERA+probe Ql (Unsp spec) Not detected [facility] No Panel Informationon 09-06 POC Nasal Swab Influenza A,B Not detected [facility] POC Nasal Swab RSV Not detected [facility] Urgent Care Visit Reporton 1 11-07-2023 Urgent Care Visit Report [facility] [address], [address] [place] [address] OFFICE VISIT Date of Service: 09/06/24 MR#: [id number] Acct: [id number] Name: RAÚL CABRERA Rep #: [id number] : 1985 Provider: FREDI Sharpe Age/Sex: 39/F Location: [facility] Status: Signed Intake Vital Signs 03/21/24 11:00 [...] on for 5 days and chest congestion. [facility] Medical History (Updated 03/21/24 @ 11:[address] Leda Wright MD) Situational anxiety Allergies No active medical problems Surgical History (Updated 03/21/24 @ 11:[address] 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 No [id number] taken to assist. No other associated symptoms [...] grossly normal (more content not included)... Normal [facility] CBC, Employeeon 06-23-2024 Absolute Lymph 1.37 X10 3/uL Normal 0.83-4.51 [facility] Comment on above: Performed By: #### L 7000.1800, M100.3200, M1 #### [facility] [address] [place], [address] Absolute Neut 1.9 X10 3/uL Low 2.0-7.7 [facility] Comment on above: Performed By: #### L 7000.1800, M100.3200, M1 #### [facility] [address] [place], [address] Basophils/100 WBC (Bld) 1.0 % Normal 0-1 [facility] Comment on above: Performed By: #### L 7000.1800, M100.3200, M1 #### [facility] [address] [place], [address] Eosinophils/100 WBC (Bld) 3.4 % Normal 0-5 [facility] Comment on above: Performed By: #### L 7000.1800, M100.3200, M1 #### [facility] [address] [place], [address] Erythrocyte distribution width (RBC) [Ratio] 12.0 % Normal 11.6-14.6 [facility] Comment on above: Performed By: #### L 7000.1800, M100.3200, M1 #### [facility] [address] [place], [address] Hematocrit (Bld) [Volume fraction] 39.0 % Normal 37-47 [facility] Comment on above: Performed By: #### L 7000.1800, M100.3200, #### [facility] [address] [place], [address] Hemoglobin (Bld) [Mass/Vol] 12.9 g/dL Normal 12.0-15.0 [facility] Comment on above: Performed By: #### L 7000.1800, M100.3200, #### [facility] [address] [place], [address] Lymphocytes/100 WBC (Bld) 35.9 % Normal 19-41 [facility] Comment on above: Performed By: #### L 7000.1800, M100.3200, #### [facility] [address] [place], [address] MCH (RBC) [Entitic mass] 29.5 pg Normal 27.0-32.0 [facility] Comment on above: Performed By: #### L 7000.1800, M100.3200, M1 #### [facility] [address] [place], [address] MCHC (RBC) [Mass/Vol] 33.1 g/dL Normal 32-36 [facility] Comment on above: Performed By: #### L 7000.1800, M100.3200, #### [facility] [address] [place], [address] MCV (RBC) [Entitic vol] 89.2 fL Normal 81-99 [facility] Comment on above: Performed By: #### L 7000.1800, M100.3200, #### [facility] [address] [place], [address] Monocytes/100 WBC (Bld) 10.2 % High 0-10 [facility] Comment on above: Performed By: #### L 7000.1800, M100.3200, #### [facility] [address] [place], [address] Neutrophils/100 WBC (Bld) 49.2 % Normal 47-70 [facility] Comment on above: Performed By: #### L 0.1799, M100.320, #### [facility] [address] [place], [address] NRBC # 0.00 10 3/uL Normal 0-5 [facility] Comment on above: Performed By: #### L 7000.1800, M100.320, #### [facility] [address] [place], [address] Nucleated RBC (Bld) [#/Vol] 0 10*3/uL Normal 0-5 [facility] Comment on above: Performed By: #### L 7000.1800, M100.3200, #### [facility] [address] [place], [address] Platelet mean volume (Bld) [Entitic vol] 11.0 fL Normal 6.2-12.0 [facility] Comment on above: Performed By: #### L 7000.1800, M100.3200, #### [facility] [address] [place], [address] Platelets (Bld) [#/Vol] 251 10*3/uL Normal 150-450 [facility] Comment on above: Performed By: #### L 7000.1800, M100.3200, M1 #### [facility] [address] [place], [address] RBC (Bld) [#/Vol] 4.37 10*6/uL Normal 4.2-5.4 [facility] Comment on above: Performed By: #### L 7000.1800, M100.3200, M1 #### [facility] [address] [place], [address] RDW SD 39.1 fl Normal 35.1-43.9 [facility] Comment on above: Performed By: #### L 7000.1800, M100.3200, M1 #### [facility] [address] [place], [address] WBC (Bld) [#/Vol] 3.8 10*3/uL Low 4.4-11.0 [facility] Comment on above: Performed By: #### L 7000.1800, M100.3200, M1 #### [facility] [address] [place], [address] Employee Profileon 4 Albumin [Mass/Vol] 3.7 g/dL Normal 3.2-5.0 [facility] Comment on above: Performed By: #### L 7000.1800, M100.3200, M1 #### [facility] [address] [place], [address] Albumin/Globulin [Mass ratio] 1.1 {ratio} Normal 0.9-2.4 [facility] Comment on above: Performed By: #### L 7000.1800, M100.3200, M1 #### [facility] [address] [place], [address] ALK P 42 U/L Low 45-117 [facility] Comment on above: Performed By: #### L 7000.1800, M100.3200, #### [facility] [address] [place], [address] ALT [Catalytic activity/Vol] 20 U/L Normal 13-56 [facility] Comment on above: Performed By: #### L 0.1800, .3199, #### [facility] [address] [place], [address] AST [Catalytic activity/Vol] 12 U/L Low 15-37 [facility] Comment on above: Performed By: #### L 0.1800, M100.3199, #### [facility] [address] [place], [address] Bilirubin [Mass/Vol] 0.60 mg/dL Normal 0.20-1.00 [facility] Comment on above: Result Comment: For patients on eltrombopag therapy, use of Dimension [place] TBIL is not recommended. Performed By: #### L 0.1800, .3199, #### [facility] [address] [place], [address] Bilirubin.direct [Mass/Vol] 0.11 mg/dL Normal 0.00-0.30 [facility] Comment on above: Performed By: #### L 0.1800, M100.3200, #### [facility] [address] [place], [address] BUN/CRE 18.1 RATIO Normal 10-20 [facility] Comment on above: Performed By: #### L 7000.1800, M100.3200, #### [facility] [address] [place], [address] CA,Total 8.7 mg/dL Normal 8.5-10.1 [facility] Comment on above: Performed By: #### L 0.1800, M100.320, #### [facility] [address] [place], [address] Chloride [Moles/Vol] 106 mmol/L Normal 98-107 [facility] Comment on above: Performed By: #### L 0.1800, .320, #### [facility] [address] [place], [address] CHOL:HDL 3.60 Normal [facility] Comment on above: Performed By: #### L 0.1800, .3199, #### [facility] [address] [place], [address] Cholesterol [Mass/Vol] 223 mg/dL High 200 [facility] Comment on above: Result Comment: <200 mg/dL Desirable 200-240 mg/dL Borderline >240 mg/dL High Risk Performed By: #### L 0.1799, , #### [facility] [address] [place], [address] Cholesterol in HDL [Mass/Vol] 62 mg/dL Normal [facility] Comment on above: Result Comment: The drugs N-Acetylcysteine and Metamizole may falsely depress this assay. Reference Range HDL <40 mg/dL Low HDL Cholesterol HDL >or= 60 mg/dL High HDL Cholesterol Performed By: #### L 0.1800, M100.3200, #### [facility] [address] [place], [address] Cholesterol in LDL [Mass/Vol] 143 mg/dL High 0-130 [facility] Comment on above: Performed By: #### L 0.1800, .320, #### [facility] [address] [place], [address] Cholesterol in VLDL [Mass/Vol] 18 mg/dL Normal 5-40 [facility] Comment on above: Performed By: #### L 7000.1800, M100.3200, #### [facility] [address] [place], [address] CO2 [Moles/Vol] 29.0 mmol/L Normal 21.0-32.0 [facility] Comment on above: Performed By: #### L 7000.1800, M100.3200, #### [facility] [address] [place], [address] Creatinine [Mass/Vol] 0.72 mg/dL Normal 0.55-1.02 [facility] Comment on above: Result Comment: The validity of the calculated GFR GFRAA in patients over 70 years has not been determined. Clinical correlation is essential. Performed By: #### L 7000.1800, M100.3200, #### [facility] [address] [place], [address] EST GFR - AA 115 mL/min Normal >60 [facility] Comment on above: Result Comment: Afri can Fijian GFR Calc Performed By: #### L 7000.1800, M100.3200, #### [facility] [address] [place], [address] GAP 2 Low 5-15 [facility] Comment on above: Performed By: #### L 7000.1800, M100.3200, M1 #### [facility] [address] [place], [address] GFR/1.73 sq M.predicted among non-blacks MDRD (S/P/Bld) [Vol rate/Area] 95 mL/min/{1.73_m2} Normal >60 [facility] Comment on above: Result Comment: Non- GFR Calc Performed By: #### L 7000.1800, M100.3200, #### [facility] [address] [place], [address] Globulin (S) [Mass/Vol] 3.4 g/dL Normal 2.2-4.2 [facility] Comment on above: Performed By: #### L 0.1800, .320, #### [facility] [address] [place], [address] Glucose [Mass/Vol] 92 mg/dL Normal 74-106 [facility] Comment on above: Performed By: #### L 0.1799, .3199, #### [facility] [address] [place], [address] LDH 147 U/L Normal 84-246 [facility] Comment on above: Performed By: #### L 0.1800, .3199, #### [facility] [address] [place], [address] Phosphate [Mass/Vol] 3.3 mg/dL Normal 2.5-4.9 [facility] Comment on above: Performed By: #### L 0.1799, .3199, #### [facility] [address] [place], [address] Potassium [Moles/Vol] 4.2 mmol/L Normal 3.5-5.1 [facility] Comment on above: Performed By: #### L 0.1800, M100.320, #### [facility] [address] [place], [address] Sodium [Moles/Vol] 137 mmol/L Normal 136-145 [facility] Comment on above: Performed By: #### L 0.1800, .3200, #### [facility] [address] [place], [address] T PROT 7.1 g/dL Normal 6.4-8.2 [facility] Comment on above: Performed By: #### L 7000.1800, M100.3200, M1 #### [facility] [address] [place], [address] Triglyceride [Mass/Vol] 92 mg/dL Normal W [facility] Comment on above: Result Comment: The drugs N-Acetylcysteine and Metamizole may falsely depress this assay. Serum Triglycerides Reference Interval Normal <150 mg/dL Borderline high 150 - 199 mg/dL High 200 - 499 mg/dL Very High > or = 500 mg/dL Performed By: #### L 7000.1800, M100.3200, M1 #### [facility] [address] [place], [address] Urea nitrogen [Mass/Vol] 13 mg/dL Normal 7-18 [facility] Comment on above: Performed By: #### L 7000.1800, M100.3200, #### [facility] [address] [place], [address] URIC 3.9 mg/dL Normal 2.6-6.0 [facility] Comment on above: Result Comment: The drugs N-Acetylcysteine and Metamizole may falsely depress this assay. Performed By: #### L 7000.1800, M100.3200, #### [facility] [address] [place], [address] Basophil percentageOrdered B y: Nubia Ahumada on 10-30-2023 Basophil percentage 0 SEEN /hpf 0-5 [facility] Culture, urineOrdered By: Mark Ahumada on 10-30-2023 Bacteria identified Cx Nom (U) Culture exhibits no growth. [facility] - Chemistry and C hemistry - challengeon 10-30-2023 Glucose Ql (U) Negative [facility] pH (U) 7.5 [pH] [facility] Urobilinogen (U) [Mass/Vol] Negative [facility] - Hematology and Cell countson 10-30-2023 Hemoglobin Ql (U) Negative [facility] - Specimen inform ationon 10-30-2023 Color (U) STRAW [facility] Mucus LM Ql (Urine sed)Order ed By: Nubia Ahumada on 10-30-2023 Mucus Ql (Urine sed) 0 SEEN /hpf [facility] Nitrite ur dipstickOrdered B y: Nubia Ahumada on 10-30-2023 Nitrite Ql (U) Negative [facility] No Panel InformationOrdered By: Nubia Ahumada on 10-30-2023 Urine RBC 0 SEEN /hpf 0-5 [facility] No Panel Informationon 10-30 Urine Leukocytes Negatve [facility] Urine Non-Hemolyzed Blood Negative [facility] Squamous epithelial cells de tection in urine sediment by light microscopyOrdered By: Nubia Ahumada on 10-30-2023 Epithelial cells.squamous LM Ql (Urine sed) 0 SEEN /hpf 5-10 [facility] Urine blood detectionOrdered By: Nubia Ahumada on 10-30-2023 RBC Ql (U) Negative Negative [facility] Urine clarityOrdered By: Amor Ahumada on 10-30-2023 Clarity (U) Clear [facility] Urine color determinationOrd ered By: Nubia Ahumada on 10-30-2023 Color (U) Yellow Yellow [facility] Urine glucose detectionOrder ed By: Nubia Ahumada on 10-30-2023 Glucose Ql (U) Normal mg/dl Normal [facility] Urine ketones detection by t est stripOrdered By: Nubia Ahumada on 10-30-2023 Ketones Ql (U) Negative [facility] Urine leukocyte esterase det ection by dipstickOrdered By: Nubia Ahumada on 10-30-2023 Leukocyte esterase Test strip Ql (U) Negative Negative [facility] Urine pHOrdered By: Miguel Ángel Ahumada on 10-30-2023 pH (U) 7.0 [pH] 5.0 - 8.0 [facility] Urine protein assay by test strip, semi-quantitativeOrdered By: Nubia Ahumada on 10-30-2023 Protein Ql (U) Negative [facility] Urine sediment bacteria coun t by microscopy (number/high power field)Ordered By: Nubia Ahumada on 10-30-2023 Bacteria LM.HPF (Urine sed) [#/Area] 0 /[HPF] None Seen [facility] Urine specific gravity measu rementOrdered By: Nubia Ahumada on 10-30-2023 Specific gravity (U) [Rel density] 1.005 [facility] Urine total bilirubin detect ion by test stripOrdered By: Nubia Ahumada on 10-30-2023 Bilirubin Ql (U) Negative [facility] Urine urobilinogen measureme ntOrdered By: Nubia Ahumada on 10-30-2023 Urobilinogen Ql (U) Normal mg/dl Normal [facility] NOVEL CORONAVIRUSon 06-03-20 22 NARRATIVE This test was performed using isothermal MEER[employer] and has been approved as Emergency Use Authorization (EUA) for the qualitative detection [id number] nucleic acid. Normal [facility] Comment on above: Performed By: #### DANA Cui, CMPF #### [place] [address] SARS-CoV-2 (COVID-19) RNA MEERA+probe Ql (Unsp spec) Not detected Normal NOT DETECTED [facility] Comment on above: Result Comment: Nega tive [...] DANA Cui, CMPF #### [place] [address] NOVEL CORONAVIRUSon 10-27-19 22 NARRATIVE This test was performed using isothermal MEERA and has been approved as Emergency Use Authorization (EUA) for the qualitative detection [id number] nucleic acid. Normal [facility] Comment on above: Performed By: #### C OVID #### [place] [address] SARS-CoV-2 (COVID-19) RNA MEERA+probe Ql (Unsp spec) Not detected Normal NOT DETECTED [facility] Comment on above: Result Comment: Nega tive [...] #### C OVID #### Testing performed at [place] [id number] RAPID FLU Aon 10-27-2021 INFLUENZA A Negative Normal NEGATIVE [facility] Comment on above: Performed By: #### R FLUAB #### Testing performed at [place] [id number] INFLUENZA B Positive Abnormal NEGATIVE [facility] Comment on above: Result Comment: TEST ING PERFORMED BY MEERA Result called to read back by: [employer] 10/27/2021 @ 13:44 by CHRIS Performed By: #### R FLUAB #### Testing performed at [place] [id number] CBCon 08-04-2021 ABSOLUTE BAS 0.0 10*3/uL Normal 0.0-0.2 [facility] Comment on above: Performed By: #### M G, ACBC, CMPF #### Testing performed at [place] [id number] ABSOLUTE EOS 0.00 10*3/uL Normal 0.0-0.7 [facility] Comment on above: Performed By: #### M G, ACBC, CMPF #### Testing performed at [address] [address] ABSOLUTE NEUTROPHIL COUNT 5.2 10*3/uL Normal 1.4-6.5 [facility] Comment on above: Performed By: #### M G, ACBC, CMPF #### Testing performed at [address] [address] Basophils/100 WBC (Bld) 0.6 % Normal 0.0-2.0 [facility] Comment on above: Performed By: #### M G, ACBC, CMPF #### Testing performed at [address] [address] DTYPE AUTO DIFF Normal [facility] Comment on above: Performed By: #### M G, ACBC, CMPF #### Testing performed at [address] [address] Eosinophils/100 WBC (Bld) 0.6 % Normal 0.0-11.0 [facility] Comment on above: Performed By: #### M G, ACBC, CMPF #### Testing performed at [address] [address] Lymphocytes (Bld) [#/Vol] 1.70 10*3/uL Normal 1.2-3.4 [facility] Comment on above: Performed By: #### M G, ACBC, CMPF #### Testing performed at [address] [address] Lymphocytes/100 WBC (Bld) 22.5 % Normal 20.0-55.0 [facility] Comment on above: Performed By: #### M G, ACBC, CMPF #### Testing performed at [address] [address] Monocytes (Bld) [#/Vol] 0.6 10*3/uL Normal 0.0-0.7 [facility] Comment on above: Performed By: #### M G, ACBC, CMPF #### Testing performed at [address] [address] Monocytes/100 WBC (Bld) 7.4 % Normal 0.0-10.0 [facility] Comment on above: Performed By: #### CAITLYN CuiBC, CMPF #### Testing performed at [address] [address] Neutrophils/100 WBC (Bld) 68.9 % Normal 37.0-75.0 [facility] Comment on above: Performed By: #### Augustine Hinson ACBC, CMPF #### Testing performed at [address] [address] Erythrocyte distribution width (RBC) [Ratio] 12.8 % Normal 11.5-14.5 [facility] Comment on above: Performed By: #### DANA Cui CMPF #### Testing performed at [address] [address] Hematocrit (Bld) [Volume fraction] 39.5 % Normal 36.0-48.0 [facility] Comment on above: Performed By: #### CAITLYN CuiBC, CMPF #### Testing performed at [address] [address] Hemoglobin (Bld) [Mass/Vol] 13.5 g/dL Normal 12.0-16.0 [facility] Comment on above: Performed By: #### DANA Cui, CMPF #### Testing performed at [address] [address] MCH (RBC) [Entitic mass] 30.2 pg Normal 26.0-35.0 [facility] Comment on above: Performed By: #### Augustine Hinson ACBC, CMPF #### Testing performed at [address] [address] MCHC (RBC) [Mass/Vol] 34.2 g/dL Normal 27.0-37.0 [facility] Comment on above: Performed By: #### CAITLYN CuiBC, CMPF #### Testing performed at [address] [address] MCV (RBC) [Entitic vol] 88.2 fL Normal 80.0-100.0 [facility] Comment on above: Performed By: #### Augustine Hinson ACBC, CMPF #### Testing performed at [address] [address] Platelet mean volume (Bld) [Entitic vol] 9.6 fL Normal 7.4-11.0 [facility] Comment on above: Performed By: #### DANA Cui, CMPF #### Testing performed at [address] [address] Platelets (Bld) [#/Vol] 277 10*3/uL Normal 130.0-400.0 [facility] Comment on above: Performed By: #### Augustine Hinson, ACBC, CMPF #### Testing performed at [address] [address] RBC (Bld) [#/Vol] 4.48 10*6/uL Normal 4.0-5.4 [facility] Comment on above: Performed By: #### Augustine Hinson, DANA, CMPF #### Testing performed at [address] [address] WBC (Bld) [#/Vol] 7.5 10*3/uL Normal 3.6-11.0 [facility] Comment on above: Performed By: #### Augustine Hinson, DANA, CMPF #### Testing performed at [address] [address] CBC, EDIF, PLATELETon 2020 ABSOLUTE BASOPHIL COUNT 0.0 10*3/uL 0.0 - 0.2 10*3/uL [facility] Basophils/100 WBC (Bld) 0.6 % 0.0 - 2.0 % [facility] Differential cell count method Nom (Bld) AUTO DIFF % [facility] Eosinophils (Bld) [#/Vol] 0.00 10*3/uL 0.0 - 0.7 10*3/uL [facility] Eosinophils/100 WBC (Bld) 0.6 % 0.0 - 11.0 % [facility] Erythrocyte distribution width (RBC) [Ratio] 12.8 % 11.5 - 14.5 % [facility] Hematocrit (Bld) [Volume fraction] 39.5 % 36.0 - 48.0 % [facility] Hemoglobin (Bld) [Mass/Vol] 13.5 g/dL [facility] Lymphocytes (Bld) [#/Vol] 1.70 10*3/uL 1.2 - 3.4 10*3/uL [facility] Lymphocytes/100 WBC (Bld) 22.5 % 20.0 - 55.0 % [facility] MCH (RBC) [Entitic mass] 30.2 pg 26. 0 - 35.0 PG [facility] MCHC (RBC) [Mass/Vol] 34.2 g/dL [facility] MCV (RBC) [Entitic vol] 88.2 fL [facility] Monocytes (Bld) [#/Vol] 0.6 10*3/uL 0.0 - 0.7 10*3/uL [facility] Monocytes/100 WBC (Bld) 7.4 % 0.0 - 10.0 % [facility] Neutrophils (Bld) [#/Vol] 5.2 10*3/uL 1.4 - 6.5 10*3/uL [facility] Neutrophils/100 WBC (Bld) 68.9 % 37.0 - 75.0 % [facility] Platelet mean volume (Bld) [Entitic vol] 9.6 fL [facility] Platelets (Bld) [#/Vol] 277 10*3/uL 130. 0 - 400.0 10*3/uL [facility] RBC (Bld) [#/Vol] 4.48 10*6/uL 4.0 - 5.4 10*6/uL [facility] WBC (Bld) [#/Vol] 7.5 10*3/uL 3.6 - 11.0 10*3/uL [facility] CMP FASTINGon 08-04-2021 A:G RATIO 1.4 RATIO Normal 1.3-2.2 [facility] Comment on above: Performed By: #### M G, ACBC, CMPF #### Testing performed at [address] [address] ALBUMIN 4.5 G/dl Normal 3.5-5.0 [facility] Comment on above: Performed By: #### M G, ACBC, CMPF #### Testing performed at [address] [address] ALP [Catalytic activity/Vol] 34 U/L Low 38-126 [facility] Comment on above: Performed By: #### M G, ACBC, CMPF #### Testing performed at [address] [address] ALT [Catalytic activity/Vol] 15 U/L Normal 14-54 [facility] Comment on above: Performed By: #### M G, ACBC, CMPF #### Testing performed at [address] [address] AST [Catalytic activity/Vol] 14 U/L Low 15-41 [facility] Comment on above: Performed By: #### M G, ACBC, CMPF #### Testing performed at [address] [address] Bilirubin [Mass/Vol] 0.5 mg/dL Normal 0.2-1.2 [facility] Comment on above: Performed By: #### M G, ACBC, CMPF #### Testing performed at [place] [id number] Creatinine [Mass/Vol] 0.79 mg/dL Normal 0.52-1.04 [facility] Comment on above: Performed By: #### M G, ACBC, CMPF #### Testing performed at [address] [address] EST. GFR, >60 Normal [facility] Comment on above: Performed By: #### M G, ACBC, CMPF #### Testing performed at [address] [address] EST. GFR,Non >60 Normal [facility] Comment on above: Performed By: #### M G, ACBC, CMPF #### Testing performed at [address] [address] GFR Information Average GFR for 30-3 9 years old = 109. Normal [facility] Comment on above: Result Comment: Anaesthetic Technician sally Kidney disease, GFR = <60. Kidney failure, GFR = <15. The GFR estimate is not adjusted for extreme body surface area or acute process, nor has it been validated for women or ethnic groups other than and . Performed By: #### M G, ACBC, CMPF #### Testing performed at [address] [address] Protein [Mass/Vol] 7.7 g/dL Normal 6.3-8.2 [facility] Comment on above: Performed By: #### DANA Cui CMPF #### Testing performed at [address] [place] [address] Urea nitrogen [Mass/Vol] 9 mg/dL Normal 7-20 [facility] Comment on above: Performed By: #### DANA Cui CMPF #### Testing performed at [address] [address] Calcium [Mass/Vol] 9.3 mg/dL Normal 8.4-10.2 [facility] Comment on above: Performed By: #### DANA Cui CMPF #### Testing performed at [address] [address] Chloride [Moles/Vol] 102 mmol/L Normal 98-107 [facility] Comment on above: Performed By: #### DANA Cui CMPF #### Testing performed at [address] [address] CO2 [Moles/Vol] 24 mmol/L Normal 22-30 [facility] Comment on above: Performed By: #### DANA Cui CMPF #### Testing performed at [address] [place] [address] Glucose [Mass/Vol] 121 mg/dL High 70-100 [facility] Comment on above: Result Comment: NORMAL <100 mg/dL PREDIABETES 101-126 mg/dL DIABETES 126 mg/dL or higher Performed By: #### DANA Cui, CMPF #### Testing performed at [address] [place] [address] Potassium [Moles/Vol] 3.4 mmol/L Low 3.5-5.1 [facility] Comment on above: Performed By: #### DANA Cui CMPF #### Testing performed at [address] [place] [address] Sodium [Moles/Vol] 136 mmol/L Normal 136-145 [facility] Comment on above: Performed By: #### M G, ACBC, CMPF #### Testing performed at [facility] [address] [place] [address] [facility] 08-04-2021 Albumin [Mass/Vol] 4.5 G/dl 3.5 - 5.0 G/dl [facility] Albumin/Globulin [Mass ratio] 1.4 {ratio} [facility] ALP [Catalytic activity/Vol] 34 U/L Low [facility] ALT [Catalytic activity/Vol] 15 U/L [facility] AST [Catalytic activity/Vol] 14 U/L Low [facility] Bilirubin [Mass/Vol] 0.5 mg/dL [facility] Calcium [Mass/Vol] 9.3 mg/dL [facility] Chloride [Moles/Vol] 102 mmol/L [facility] CO2 [Moles/Vol] 24 mmol/L [facility] Creatinine [Mass/Vol] 0.79 mg/dL [facility] GFR COMMENT Average GFR for 30-3 9 years old = 109. [facility] Comment on above: Chronic Kidney disea se, GFR = <60. Kidney failure, GFR = <15. The GFR estimate is not adjusted for extreme body surface area or acute process, nor has it been validated for women or ethnic groups other than and . GFR/1.73 sq M.predicted among blacks MDRD (S/P/Bld) [Vol rate/Area] mL/min/{1.73_m2} ml/min/1.73s q.m [facility] GFR/1.73 sq M.predicted among non-blacks MDRD (S/P/Bld) [Vol rate/Area] mL/min/{1.73_m2} ml/min/1.73s q.m [facility] Glucose post fast [Mass/Vol] 121 mg/dL High [facility] Comment on above: NORMAL <100 mg/dL PREDIABETES 101-126 mg/dL DIABETES 126 mg/dL or higher Interpretation and review of laboratory results Abnormal [facility] Potassium [Moles/Vol] 3.4 mmol/L Low [facility] Protein [Mass/Vol] 7.7 g/dL [facility] Sodium [Moles/Vol] 136 mmol/L [facility] Urea nitrogen [Mass/Vol] 9 mg/dL [facility] D DIMERon 08-04-2021 D DIMER 0.43 mg/L FEU Normal <0.50 [facility] Comment on above: Result Comment: If r esult is greater than the cutoff value of 0.50 mg/L then the potential for PE or DVT exists. Other conditions exist which may cause a falsely elevated level. Please correlate clinically, including radiological findings and other clinical parameters. Performed By: #### D DIMER #### Testing performed at [address] [address] D-DIMER,QUANTITATIVEon 08-04 Fibrin D-dimer FEU (PPP) [Mass/Vol] 0.43 <0.50 mg/L FEU [facility] Comment on above: If result is greater than the cutoff value of 0.50 mg/L then the potential for PE or DVT exists. Other conditions exist which may cause a falsely elevated level. Please correlate clinically, including radiological findings and other clinical parameters. [facility] MAGNESIUMon 08-04-2021 Magnesium [Mass/Vol] 2.1 mg/dL Normal 1.6-2.3 [facility] Comment on above: Performed By: #### M G, ACBC, CMPF #### Testing performed at [address] [address] Magnesium [Mass/Vol] 2.1 mg/dL [facility] No Panel Informationon 08-04 [facility] TROPONIN I, HIGH SENSITIVITY on 08-04-2021 TROPONIN I, HIGH SENSITIVITY <2 Normal 0-12 [facility] Comment on above: Result Comment: Indeterminant: >12 to 100 pg/mL female >20 to 100 pg/mL male Indicative of myocardial injury. Serial sampling is recommended, a change of greater than or equal to 20 pg/mL is indicative of acute coronary syndrome. Performed By: #### T ROHS #### Testing performed at [address] [address] TROPONIN I, HIGH SENSITIVITY <2 0 - 12 pg/mL [facility] Comment on above: Indeterminant: >12 to 100 pg/mL female >20 to 100 pg/mL male Indicative of myocardial injury. Serial sampling is recommended, a change of greater than or equal to 20 pg/mL is indicative of acute coronary syndrome. [facility] CBCon 07-27-2021 ABSOLUTE BAS 0.1 10*3/uL Normal 0.0-0.2 [facility] Comment on above: Performed By: #### L IP2, CMPF, FX, ACBC, TSH2 #### Testing performed at [address] [address] ABSOLUTE EOS 0.10 10*3/uL Normal 0.0-0.7 [facility] Comment on above: Performed By: #### L IP2, CMPF, FX, ACBC, TSH2 #### Testing performed at [address] [address] ABSOLUTE NEUTROPHIL COUNT 4.2 10*3/uL Normal 1.4-6.5 [facility] Comment on above: Performed By: #### L IP2, CMPF, FX, ACBC, TSH2 #### Testing performed at [address] [address] Basophils/100 WBC (Bld) 0.8 % Normal 0.0-2.0 [facility] Comment on above: Performed By: #### L IP2, CMPF, FX, ACBC, TSH2 #### Testing performed at [address] [address] DTYPE AUTO DIFF Normal [facility] Comment on above: Performed By: #### L IP2, CMPF, FX, ACBC, TSH2 #### Testing performed at [address] [address] Eosinophils/100 WBC (Bld) 1.8 % Normal 0.0-11.0 [facility] Comment on above: Performed By: #### L IP2, CMPF, FX, ACBC, TSH2 #### Testing performed at [address] [address] Lymphocytes (Bld) [#/Vol] 1.90 10*3/uL Normal 1.2-3.4 [facility] Comment on above: Performed By: #### L IP2, CMPF, FX, ACBC, TSH2 #### Testing performed at [address] [address] Lymphocytes/100 WBC (Bld) 27.9 % Normal 20.0-55.0 [facility] Comment on above: Performed By: #### L IP2, CMPF, FX, ACBC, TSH2 #### Testing performed at [address] [address] Monocytes (Bld) [#/Vol] 0.6 10*3/uL Normal 0.0-0.7 [facility] Comment on above: Performed By: #### L IP2, CMPF, FX, ACBC, TSH2 #### Testing performed at [address] [address] Monocytes/100 WBC (Bld) 8.7 % Normal 0.0-10.0 [facility] Comment on above: Performed By: #### L IP2, CMPF, FX, ACBC, TSH2 #### Testing performed at [address] [address] Neutrophils/100 WBC (Bld) 60.8 % Normal 37.0-75.0 [facility] Comment on above: Performed By: #### L IP2, CMPF, FX, ACBC, TSH2 #### Testing performed at [address] [address] Erythrocyte distribution width (RBC) [Ratio] 12.6 % Normal 11.5-14.5 [facility] Comment on above: Performed By: #### L IP2, CMPF, FX, ACBC, TSH2 #### Testing performed at [address] [address] Hematocrit (Bld) [Volume fraction] 38.2 % Normal 36.0-48.0 [facility] Comment on above: Performed By: #### L IP2, CMPF, FX, ACBC, TSH2 #### Testing performed at [address] [address] Hemoglobin (Bld) [Mass/Vol] 13.2 g/dL Normal 12.0-16.0 [facility] Comment on above: Performed By: #### L IP2, CMPF, FX, ACBC, TSH2 #### Testing performed at [address] [address] MCH (RBC) [Entitic mass] 30.2 pg Normal 26.0-35.0 [facility] Comment on above: Performed By: #### L IP2, CMPF, FX, ACBC, TSH2 #### Testing performed at [address] [address] MCHC (RBC) [Mass/Vol] 34.5 g/dL Normal 27.0-37.0 [facility] Comment on above: Performed By: #### L IP2, CMPF, FX, ACBC, TSH2 #### Testing performed at [address] [address] MCV (RBC) [Entitic vol] 87.5 fL Normal 80.0-100.0 [facility] Comment on above: Performed By: #### L IP2, CMPF, FX, ACBC, TSH2 #### Testing performed at [address] [address] Platelet mean volume (Bld) [Entitic vol] 8.9 fL Normal 7.4-11.0 [facility] Comment on above: Performed By: #### L IP2, CMPF, FX, ACBC, TSH2 #### Testing performed at [address] [address] Platelets (Bld) [#/Vol] 280 10*3/uL Normal 130.0-400.0 [facility] Comment on above: Performed By: #### L IP2, CMPF, FX, ACBC, TSH2 #### Testing performed at [address] [address] RBC (Bld) [#/Vol] 4.37 10*6/uL Normal 4.0-5.4 [facility] Comment on above: Performed By: #### L IP2, CMPF, FX, ACBC, TSH2 #### Testing performed at [address] [address] WBC (Bld) [#/Vol] 6.9 10*3/uL Normal 3.6-11.0 [facility] Comment on above: Performed By: #### L IP2, CMPF, FX, ACBC, TSH2 #### Testing performed at [address] [address] CMP FASTINGon 07-27-2021 A:G RATIO 1.4 RATIO Normal 1.3-2.2 [facility] Comment on above: Performed By: #### L IP2, CMPF, FX, ACBC, TSH2 #### Testing performed at [address] [address] ALBUMIN 4.4 G/dl Normal 3.5-5.0 [facility] Comment on above: Performed By: #### L IP2, CMPF, FX, ACBC, TSH2 #### Testing performed at [address] [address] ALP [Catalytic activity/Vol] 35 U/L Low 38-126 [facility] Comment on above: Performed By: #### L IP2, CMPF, FX, ACBC, TSH2 #### Testing performed at [address] [address] ALT [Catalytic activity/Vol] 23 U/L Normal 14-54 [facility] Comment on above: Performed By: #### L IP2, CMPF, FX, ACBC, TSH2 #### Testing performed at [address] [address] AST [Catalytic activity/Vol] 21 U/L Normal 15-41 [facility] Comment on above: Performed By: #### L IP2, CMPF, FX, ACBC, TSH2 #### Testing performed at [address] [address] Bilirubin [Mass/Vol] 0.4 mg/dL Normal 0.2-1.2 [facility] Comment on above: Performed By: #### L IP2, CMPF, FX, ACBC, TSH2 #### Testing performed at [address] [address] Calcium [Mass/Vol] 9.5 mg/dL Normal 8.4-10.2 [facility] Comment on above: Performed By: #### L IP2, CMPF, FX, ACBC, TSH2 #### Testing performed at [address] [address] Chloride [Moles/Vol] 100 mmol/L Normal 98-107 [facility] Comment on above: Performed By: #### L IP2, CMPF, FX, ACBC, TSH2 #### Testing performed at [address] [address] CO2 [Moles/Vol] 26 mmol/L Normal 22-30 [facility] Comment on above: Performed By: #### L IP2, CMPF, FX, ACBC, TSH2 #### Testing performed at [address] [address] Creatinine [Mass/Vol] 0.68 mg/dL Normal 0.52-1.04 [facility] Comment on above: Performed By: #### L IP2, CMPF, FX, ACBC, TSH2 #### Testing performed at [address] [address] EST. GFR, >60 Normal [facility] Comment on above: Performed By: #### L IP2, CMPF, FX, ACBC, TSH2 #### Testing performed at [address] [address] EST. GFR,Non >60 Normal [facility] Comment on above: Performed By: #### L IP2, CMPF, FX, ACBC, TSH2 #### Testing performed at [address] [address] GFR Information Average GFR for 30-3 9 years old = 109. Normal [facility] Comment on above: Result Comment: Anaesthetic Technician sally Kidney disease, GFR = <60. Kidney failure, GFR = <15. The GFR estimate is not adjusted for extreme body surface area or acute process, nor has it been validated for women or ethnic groups other than and . Performed By: #### L IP2, CMPF, FX, ACBC, TSH2 #### Testing performed at [address] [address] Glucose [Mass/Vol] 96 mg/dL Normal 70-100 [facility] Comment on above: Result Comment: NORMAL <100 mg/dL PREDIABETES 101-126 mg/dL DIABETES 126 mg/dL or higher Performed By: #### L IP2, CMPF, FX, ACBC, TSH2 #### Testing performed at [address] [address] Potassium [Moles/Vol] 4.3 mmol/L Normal 3.5-5.1 [facility] Comment on above: Performed By: #### L IP2, CMPF, FX, ACBC, TSH2 #### Testing performed at [address] [address] Protein [Mass/Vol] 7.6 g/dL Normal 6.3-8.2 [facility] Comment on above: Performed By: #### L IP2, CMPF, FX, ACBC, TSH2 #### Testing performed at [address] [address] Sodium [Moles/Vol] 136 mmol/L Normal 136-145 [facility] Comment on above: Performed By: #### L IP2, CMPF, FX, ACBC, TSH2 #### Testing performed at [address] [address] Urea nitrogen [Mass/Vol] 12 mg/dL Normal 7-20 [facility] Comment on above: Performed By: #### L IP2, CMPF, FX, ACBC, TSH2 #### Testing performed at [address] [address] FAX REQUESTon 07-27-2021 FAX TO [phone] [facility] Comment on above: Performed By: #### L IP2, CMPF, FX, ACBC, TSH2 #### Testing performed at [address] [address] LIPID PROFILEon 07-27-2021 Cholesterol [Mass/Vol] 216 mg/dL High 100-199 [facility] Comment on above: Performed By: #### M G, ACBC, CMPF #### Testing performed at [address] [address] Cholesterol in HDL [Mass/Vol] 45 mg/dL Normal 40-60 [facility] Comment on above: Performed By: #### M G, ACBC, CMPF #### Testing performed at [address] [address] Cholesterol in LDL [Mass/Vol] 127 mg/dL High 0-100 [facility] Comment on above: Performed By: #### DANA Cui CMPF #### Testing performed at [address] [address] Cholesterol in VLDL [Mass/Vol] 44 mg/dL High 5.0-25.0 [facility] Comment on above: Performed By: #### DANA Cui, CMPF #### Testing performed at [address] [address] Cholesterol.total/Choles terol in HDL [Mass ratio] 4.80 {ratio} Normal [facility] Comment on above: Result Comment: RISK TOTAL/HDL RATIO MEN WOMEN 1/2 AVERAGE 3.43 3.27 AVERAGE 4.97 4.44 2X AVERAGE 9.55 7.05 3X AVERAGE 23.99 11.04 Performed By: #### DANA Cui, CMPF #### Testing performed at [address] [address] Triglyceride [Mass/Vol] 219 mg/dL High <150 [facility] Comment on above: Performed By: #### DANA Cui, CMPF #### Testing performed at [address] [address] TSHon 07-27-2021 TSH 2.468 uIU/ML Normal 0.45-5.33 [facility] Comment on above: Performed By: #### Augustine Hinson, DANA, CMPF #### Testing performed at [address] [address] D DIMERon 06-24-2021 D DIMER <0.27 Normal <0.50 [facility] Comment on above: Result Comment: If r esult is greater than the cutoff value of 0.56 mg/L then the potential for PE or DVT exists. Other conditions exist which may cause a falsely elevated level. Please correlate clinically, including radiological findings and other clinical parameters. Performed By: #### DANA Cui, CMPF #### Testing performed at [address] [address] Vital Signs Date Time Vital Sign Value Performing Clinician Iva cantu 04-24-2025 11:52-0400 Body temperature 96.9 [degF] Dr. Leda Wright MD Work Phone: [facility] 04-24-2025 11:52-0400 Diastolic blood pressure 87 mm[Hg] Dr. Leda Wright MD Work Phone: [facility] 04-24-2025 11:52-0400 Heart rate 71 /min Dr. Leda Wright MD Work Phone: [facility] 04-24-2025 11:52-0400 Respiratory rate 15 /min Dr. Leda Wright MD Work Phone: [facility] 04-24-2025 11:52-0400 SaO2% (BldA) [Mass fraction] 100 % Dr. Leda Wright MD Work Phone: [facility] 04-24-2025 11:52-0400 Systolic blood pressure 128 mm[Hg] Dr. Leda Wright MD Work Phone: [facility] 04-24-2025 10:47-0400 Body height 177.[address] Leda Wright MD Work Phone: [facility] 04-24-2025 10:47-0400 Body mass index (BMI) [Ratio] 21.5 kg/m2 Dr. Leda Wright MD Work Phone: [facility] 04-24-2025 10:47-0400 Body weight 68.[address] Leda Wright MD Work Phone: [facility] 04-03-2025 11:44-0400 Body height 177.[address] Leda Wright MD Work Phone: [facility] 04-03-2025 11:35-0400 Body mass index (BMI) [Ratio] 22.4 kg/m2 Dr. Leda Wright MD Work Phone: [facility] 04-03-2025 11:35-0400 Body weight 70.[address] Leda Wright MD Work Phone: [facility] 04-03-2025 11:35-0400 Diastolic blood pressure 80 mm[Hg] Dr. Leda Wright MD Work Phone: [facility] 04-03-2025 11:35-0400 Systolic blood pressure 118 mm[Hg] Dr. Leda Wright MD Work Phone: [facility] 11-24-2024 13:01-0500 Body height 177.[address] Leda Wright MD Work Phone: [facility] 11-24-2024 13:01-0500 Body mass index (BMI) [Ratio] 24 kg/m2 Dr. Leda Wright MD Work Phone: [facility] 11-24-2024 13:01-0500 Body temperature 97.5 [degF] Dr. Leda Wright MD Work Phone: [facility] 11-24-2024 13:01-0500 Body weight 75.[address] Leda Wright MD Work Phone: [facility] 11-24-2024 13:01-0500 Diastolic blood pressure 86 mm[Hg] Dr. Leda Wright MD Work Phone: [facility] 11-24-2024 13:01-0500 Heart rate 68 /min Dr. Leda Wright MD Work Phone: [facility] 11-24-2024 13:01-0500 Respiratory rate 18 /min Dr. Leda Wright MD Work Phone: [facility] 11-24-2024 13:01-0500 SaO2% (BldA) [Mass fraction] 100 % Dr. Leda Wright MD Work Phone: [facility] 11-24-2024 13:01-0500 Systolic blood pressure 132 mm[Hg] Dr. Leda Wright MD Work Phone: [facility] 10-25-2024 11:31-0500 Body mass index (BMI) [Ratio] 24 kg/m2 Dr. Leda Wright MD Work Phone: [facility] 10-25-2024 11:31-0500 Body weight 75.[address] Leda Wright MD Work Phone: [facility] 10-25-2024 11:31-0500 Diastolic blood pressure 85 mm[Hg] Dr. Leda Wright MD Work Phone: [facility] 10-25-2024 11:31-0500 Systolic blood pressure 138 mm[Hg] Dr. Leda Wright MD Work Phone: [facility] 09-06-2024 10:30-0500 Body mass index (BMI) [Ratio] 23.7 kg/m2 Dr. Leda Wright MD Work Phone: [facility] 09-06-2024 10:30-0500 Body temperature 98.3 [degF] Dr. Leda Wright MD Work Phone: [facility] 09-06-2024 10:30-0500 Body weight 75.[address] Leda Wright MD Work Phone: [facility] 09-06-2024 10:30-0500 Diastolic blood pressure 82 mm[Hg] Dr. Leda Wright MD Work Phone: [facility] 09-06-2024 10:30-0500 Heart rate 84 /min Dr. Leda Wright MD Work Phone: [facility] 09-06-2024 10:30-0500 SaO2% (BldA) [Mass fraction] 99 % Dr. Leda Wright MD Work Phone: [facility] 09-06-2024 10:30-0500 Systolic blood pressure 122 mm[Hg] Dr. Leda Wright MD Work Phone: [facility] 10-30-2023 11:52-0500 Body height 177.[address] Tadeo Obregon Work Phone: [facility] 10-30-2023 11:52-0500 Body mass index (BMI) [Ratio] 23.9 kg/m2 Dr. Tadeo Obregon Work Phone: [facility] 10-30-2023 11:52-0500 Body temperature 98.4 [degF] Dr. Tadeo Obregon Work Phone: [facility] 10-30-2023 11:52-0500 Body weight 75.[address] Tadeo Obregon Work Phone: [facility] 10-30-2023 11:52-0500 Diastolic blood pressure 70 mm[Hg] Dr. Tadeo Obregon Work Phone: [facility] 10-30-2023 11:52-0500 Heart rate 60 /min Dr. Tadeo Obregon Work Phone: [facility] 10-30-2023 11:52-0500 Respiratory rate 12 /min Dr. Tadeo Obregon Work Phone: [facility] 10-30-2023 11:52-0500 SaO2% (BldA) [Mass fraction] 100 % Dr. Tadeo Obregon Work Phone: [facility] 10-30-2023 11:52-0500 Systolic blood pressure 116 mm[Hg] Dr. Tadeo Obregon Work Phone: [facility] 08-04-2021 19:00-0500 Diastolic blood pressure 76 mm[Hg] Nathaniel Garza MD Work Phone: [facility] 08-04-2021 19:00-0500 Heart rate 73 /min Nathaniel Garza MD Work Phone: [facility] 08-04-2021 19:00-0500 Respiratory rate 19 /min Nathaniel Garza MD Work Phone: [facility] 08-04-2021 19:00-0500 SaO2% (BldA) [Mass fraction] 98 % Nathaniel Garza MD Work Phone: [facility] 08-04-2021 19:00-0500 Systolic blood pressure 125 mm[Hg] Nathaniel Garza MD Work Phone: [facility] 08-04-2021 15:41-0500 Body height 177.8 cm Nathaniel Garza MD Work Phone: [facility] 08-04-2021 15:41-0500 Body mass index (BMI) [Ratio] 25.83 kg/m2 Nathaniel Garza MD Work Phone: [facility] 08-04-2021 15:41-0500 Body weight 81.65 kg Nathaniel Garza MD Work Phone: [facility] Encounters Encounter Date Encounter Type Care Provider Facility Start: 04-24-2025 End: 04-24-2025 Emergency department patient visit Dr. Leda Wright MD Work Phone: -Emergency Department Work Phone: Start: 04-06-2025 End: 04-06-[address] Leda Wright MD Work Phone: -Ultrasound [facility] Start: 04-06-2025 End: 04-06-2025 Patient encounter procedure Carlee Tai MARINE CARGO INSPECTOR-C -Ultrasound [facility] Work Phone: Start: 04-06-2025 End: 04-06-2025 ambulatory Leda Wright Facility:[facility] Start: 04-03-2025 End: 04-03-[address] Leda Wright MD Work Phone: -Laboratory Specimen Start: 04-03-2025 End: 04-03-[address] Anna Tracey DO -Laboratory Specimen Work Phone: Start: 04-03-2025 End: 04-03-2025 Patient encounter procedure Carlee Tai MARINE CARGO INSPECTOR-C -[facility] Work Phone: Start: 04-03-2025 End: 04-03-[address] Leda Wright MD Work Phone: -[facility] Start: 04-03-2025 End: 04-03-2025 ambulatory Leda Yeelay Facility:[facility] Start: 03-08-2025 End: 03-08-[address] Leda Wright MD Work Phone: [facility] Work Phone: Start: 03-08-2025 End: 03-08-[address] Leda Wright MD Work Phone: -Laboratory Work Phone: Start: 03-07-2025 End: 03-08-2025 ambulatory MIGUEL NADIA Facility:[facility] Start: 11-24-2024 End: 11-24-[address] Leda Wright MD Work Phone: [facility] Work Phone: Start: 11-24-2024 End: 11-24-[address] Franck Dupont MD -Laboratory, Specimen Work Phone: Start: 11-24-2024 End: 11-24-[address] Franck Dupont MD -[facility] Work Phone: Start: 11-24-2024 End: 11-24-2024 ambulatory Leda Wright Facility:[facility] Start: 11-24-2024 ambulatory Leda Wright Facility :[facility] Start: 11-24-2024 Non-patient / Non-visit Dr. Nathaniel Ren MD -[facility] Start: 11-24-2024 End: 11-24-2024 ambulatory Leda Yeelay Facility:[facility] Start: 10-30-2024 End: 10-30-2024 Patient encounter procedure Yudith MAZA -Outpatient [facility] Work Phone: Start: 10-30-2024 End: 10-30-2024 ambulatory Leda Yeelay Facility:[facility] Start: 10-25-2024 End: 10-25-2024 Patient encounter procedure Yudith MAZA -Laboratory Work Phone: Start: 10-25-2024 End: 10-25-2024 Patient encounter procedure Yudith MAZA -[facility] Work Phone: Start: 10-25-2024 End: 10-25-2024 Patient encounter status Yudith Villanueva MARINE CARGO INSPECTOR-Ha [facility] Start: 10-25-2024 End: 10-25-2024 ambulatory Leda [place] Facility:[facility] Start: 10-25-2024 End: 10-25-2024 ambulatory Leda [place] Facility:[facility] Start: 09-06-2024 End: 09-06-2024 Patient encounter procedure Adithya Sullivan [place] [facility] Work Phone: Start: 09-06-2024 End: 09-06-2024 ambulatory Leda [place] Facility:[facility] Start: 06-23-2024 ambulatory Health Risk Assessment Facility:[facility] Start: 10-30-2023 End: 10-30-[address] Tadeo Obregon Work Phone: [facility] Work Phone: Start: 10-30-2023 End: 10-30-[address] Tadeo Obregon Work Phone: [facility] Work Phone: Start: 10-15-2023 End: 10-15-2023 ambulatory [facility] Work Phone: Start: 10-15-2023 End: 10-15-2023 Patient encounter procedure [facility]-Outpatient Breast Imaging Work Phone: Start: 06-03-2022 ambulatory ARJUN CHAMORRO [facility] Start: 10-27-2021 ambulatory LAUREEN SYED [facility] Start: 08-04-2021 End: 08-04-2021 Emergency department patient visit [facility] Start: 08-04-2021 End: 08-04-2021 Emergency department patient visit Nathaniel Garza MD Work Phone: [facility] Emergency [facility] Start: 07-27-2021 ambulatory TADEO OBREGON [facility] Start: 06-24-2021 ambulatory ARJUN CHAMORRO [facility] Start: 05-06-2018 End: 05-06-2018 Patient encounter Franck Pate Facility:[facility] Procedures Date Procedure Procedure Detail Performing Clinician Start: 04-06-[address] Alfred Wright MD Work Phone: Start: 04-03-2025 Gram [...] Author Start: 04-24-2025 Hepatitis C antibody measurement [facility] Start: 04-24-2025 End: 04-24-2025 [facility] Start: 04-06-2025 Pelvic echography Pelvic w/ Transvaginal [facility] Start: 04-06-2025 US Pelvis [facility] Start: 2004 Screening for malignant neoplasm of cervix CERVICAL CANCER SCREENING DISCUSSION [facility] Start: 2002 Third diphtheria, tetanus and acellular pertussis (DTaP) vaccination TDAP (ADULT) [facility] Start: 2001 Tetanus vaccination TETANUS [facility] Start: 1998 HIV screening HIV SCREENING DISCUSSION [facility] Start: 1988 COVID-19 VACCINE (1) COVID-19 VACCINE (1) [facility] Start: 1983 Hepatitis C antibody, confirmatory test HEPATITIS C VIRUS SCREENING [facility] Hepatitis B virus surface Ag [Presence] in Serum [facility] Patient Education ED NEEDLE STIC K Health Care Worker [facility] Work Phone: Source specific culture [facility] US Pelvis [facility] Immunizations Immunization Date Immunization Notes Care Provider [facility] 07-19-2024 influenza, seasonal, injectable, preservative free Dr. Leda Wright MD Work Phone: [facility] 07-08-2023 influenza, injectabl e, quadrivalent, preservative free [facility] 08-01-2021 Seasonal, quadrivale nt, recombinant, injectable influenza vaccine, preservative free Dr. Leda Wright MD Work Phone: [facility] 06-26-2020 influenza, injectabl e, quadrivalent, preservative free Dr. Leda Wright MD Work Phone: [facility] 07-03-2019 influenza, injectabl e, quadrivalent, preservative free Dr. Leda Wright MD Work Phone: [facility] 07-13-2018 influenza, injectabl e, quadrivalent, preservative free Dr. Leda Wright MD Work Phone: [facility] 06-16-2017 influenza, injectabl e, quadrivalent, preservative free Dr. Leda Wright MD Work Phone: [facility] 06-11-2016 influenza, injectabl e, quadrivalent, preservative free Dr. Leda Wright MD Work Phone: [facility] 03-24-2016 measles, mumps and rubella virus vaccine [facility] 03-24-2016 tetanus toxoid, redu franci diphtheria toxoid, and acellular pertussis vaccine, adsorbed [facility] 03-01-2003 hepatitis B vaccine, pediatric or pediatric/adolescent dosage [facility] 07-11-2001 hepatitis B vaccine, pediatric or pediatric/adolescent dosage [facility] 06-13-2001 hepatitis B vaccine, pediatric or pediatric/adolescent dosage [facility] 06-01-1995 measles, mumps and rubella virus vaccine [facility] Payers Date Payer Category Payer Unknown [id number] 2024 Self-pay [id number] 2021 Unknown [facility] [id number] 2021-Present [address] [address] [place] [address] [id number] 2021 Unknown [id number] 2018 Unknown 2015 Unknown [id number] 1983 Unknown [id number] 1983 Unknown [id number] 1983 Unknown [id number] 1983 Unknown [id number] 1983 Unknown [id number] 1983 Unknown [id number] Unknown [id number] Unknown [id number] Unknown [id number] Unknown [id number] Unknown [id number] Unknown [id number] Unknown [id number] Unknown [id number] Unknown [id number] Unknown [id number] Unknown [id number] Unknown [id number] Unknown [id number] Social History Date Type Detail Facility Start: 08-04-2021 [facility] Start: 08-04-2021 Tobacco use and exposure Smokeless tobacco non-user [facility] Start: 08-04-2021 Alcohol intake Lifetime non-d daniel (finding) [facility] Start: 08-04-2021 History SDOH Alcohol Frequency 1 [facility] Start: 1985 Sex Assigned At Not on file A Meddle Exposure to SARS-CoV -2 (event) Yes [facility] Start: 1985 Sex Assigned At Female [facility] Start: 03-21-2024 End: 04-24-2025 Tobacco smoking status NHIS Ex-smoker (finding) [facility] Start: 12-07-2024 Sex Female (finding) [facility] Mental Status Date Assessment Result Facility 04-24-2025 Cognitive function Level Of Cons ciousness Awake;Alert;Appropriate;Follow s Commands [facility] Work Phone: Clinical Notes 08-04-2021 to 04-07-2025 Note Date & Type Note Facility 04-07-2025 Radiology Diagnostic study note [facility] Imaging Services [address] [place], [place] [address] Pelvic w/ Transvaginal MR#: [id number] Acct: [id number] Name: RAÚL CABRERA Rep #: [id number] : 1985 F 40 From: Elida Kruse MD PCP: Dr. Leda Wright MD Status: REG CLI Study:Pelvic w/ Transvaginal Date of Exam: 04/06/25 Exam# [id number] Ordering Dr: Carlee Tai MARINE CARGO INSPECTOR MARINE CARGO INSPECTOR-C PROCEDURE: PELVIC W/ TRANSVAGINAL 04/06/2025 REASON FOR [...] LINK Tai; Dr. 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: Signed [facility] 04-03-2025 Evaluation note Diagnosis Onset Date Resolution Abnormal uterine bleeding (AUB) acute April 03, 2025 11:33am Genital warts acute April 03, 2025 11:33am Long-term current use of testosterone replacement therapy acute April 03, 2 025 11:33am Possible exposure to STD noneactive April 03, 2025 11:33am Vaginal discharge noneactive April 032024 11:33am [facility] Work Phone: 1(265) 409-523103-07-2025 Evaluation note* Diagnosis Onset Date Resolution Status Admit Date Thyroid nodule acute November 24, 2024 12:44pm [facility] Work Phone: 1(362) 454-843802-05-2025 Evaluation note* Diagnosis Onset Date Resolution Status Admit Date Irregular menses acute October 25, 2024 11:07am Thyroid nodule acute October 252024 11:07am Encounter for routine gynecological examination noneactive ua 2024 11:07am Thyroid nodule acute November 24, 2024 12:44pm [facility] Work Phone: 1(314) 330-301111-15-2021 Emergency department Note* Alisson Myers RN - 08/04/2021 7:03 PM EST Reported off to Bereket PHILLIPS at this time * Alisson Myers RN - 08/04/2021 5:34 PM EST Radha in RT notified of breathing treatment * Nathaniel Garza MD - 08/04/2021 4:44 PM EST Emergency Department Report [facility] EMERGENCY DEPARTMENT Service Date:.08/04/21 PCP: Arjun Chamorro Chief Complaint: Chief Complaint Patient presents with Chest Pain Rapid Heart Rate HPI Raúl Cabrera is a 36 y.o. 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 There [...] of arrival: Comments: JIC documented in this [facility]11-15-2021 Hospital Discharge instructions* Instructions* Nathaniel Garza [...] STAYING 130 OR HIGHER. [facility] Diagnosis Chest pain on breathing- Primary Painful respiration Hypokalemia Hypopotassemia Elevated glucose Other abnormal glucose documented in this [facility] Work Phone: Evaluation note* Diagnosis Onset Date Resolution Status Bladder spasms acute [facility] Work Phone: Evaluation note* Diagnosis Onset Date Resolution Status Admit Date Abnormal uterine bleeding (AUB) acut e April 03, 2025 11:33am [facility] Work Phone: Reason for referral (narrative)No reason for referral information [facility] Work Phone: Summary Purpose Family History Relationship Condition Age at Onset Recorded Date/T tiffanie father Myocardial infarction 48 Cardiac disease Unknown Cerebrovascular accident (CVA) 60 Abdominal aortic aneurysm (AAA) Unknown Atrial fibrillation Unknown sister Autoimmune disease Unknown mother Disorder of thyroid Unknown Advance Directives Advance Directive Response Recorded Date/ Time Do you have a Healthcare Power of Ripsaw Operator? No April 24, 2025 11:15am Chief Complaint and Reason for Visit Chief Complaint SCREEN Chief Complaint SCREEN LOWER ABDOMINAL PAIN Reason for Visit Bladder spasms Chief Complaint Admit Date Upper respiratory September 06, 2024 10:22am Annual (CRAB BACKER) October 25, 2024 1 1:07am SCREENING October [...] section and content) DATE CREATED AUTHOR 05/06/2018 [facility] DATE CREATED AUTHOR AUTHOR'S ORGANIZ ATION 06/16/2022 [facility] DATE CREATED AUTHOR AUTHOR'S ORGANIZ ATION 04/14/2025 [facility] Reason for Visit (unrecogniz ed section and [...] 1744 (Given - Provid er: Radha Helm, ART OBJECTS SUPERVISOR - Comment: used unit dose x 5 [...] March 08, 2025 End: March 08, 2025 Edge Stitcher Relationship Specialty Start Date End Date Arjun Chamorro, INVESTOR RELATIONS COORDINATOR-NURSE [employer] [address] [place] [address] PCP - General Nurse Practitioner - Family [...] Active Start: April 06, 2025 Carlee Tai MARINE CARGO INSPECTOR, MARINE CARGO INSPECTOR-C Attending Provider Active Start: April 06, 2025 Carlee Tai MARINE CARGO INSPECTOR, MARINE CARGO INSPECTOR-C Referring Provider Active Start: April 06, 2025 Team Status: Inactive Member Role/Relationship Status Dates Dr. Leda Wright MD Primary Care Provider Active Start: April 06, 2025 End: April 06, 2025 Carlee Tai MARINE CARGO INSPECTOR, MARINE CARGO INSPECTOR-C Attending Provider Active Start: April 06, 2025 End: April 06, 2025 Carlee Tai MARINE CARGO INSPECTOR, MARINE CARGO INSPECTOR-C Referring Provider Active Start: April 06, 2025 [...] ON THE PRIMARY CLINICAL RECORDS. [facility]. provides no warranty or guarantee of the accuracy or completeness of information in this document.
== END 2025-04-24 11:57 | disposition home or self-care (01) ==
LOC: ED 10:47
PROVIDERS: PCP Internal Medicine; Visit Provider Emergency Medicine
DX: S61.231A Puncture wound without foreign body of left index finger without damage to nail, initial encounter (principal); R03.0 Elevated blood-pressure reading, without diagnosis of hypertension; Z87.891 Personal history of nicotine dependence; Z77.21 Contact with and (suspected) exposure to potentially hazardous body fluids; W46.1XXA Contact with contaminated hypodermic needle, initial encounter; Y99.0 Civilian activity done for income or pay
CPT/HCPCS: 86703; 86706; 86803; 87340

== ENCOUNTER → 2025-06-04 | Outpatient (CLI) | payer OTHER, SELFPAY ==
--- NOTE | 2025-06-04 10:01 | US_ITS ---
PROCEDURE: TRANSVAGINAL NON- 06/04/2025 REASON FOR EXAM: OVARIAN CYST TECHNIQUE: Procedure Code: USTVAG Modality: US Procedure: TRANSVAGINAL NON- COMPARISON: April 06, 2025. FINDINGS: Measurements: Uterus: 10.9 cm x 6.2 cm x 4.5 cm with a volume of 165.86 mL Endometrial Thickness: 9 mm. It is hyperechoic. Right Ovary: 3.9 cm x 3.6 cm x 2.7 cm with a volume of 20.48 mL. Left Ovary: 3.8 cm x 3.2 cm x 2.8 cm with a volume of 10.74 mL. Uterus: Stable 1.4 cm 1.3 cm x 1.4 cm posterior fundal fibroid. Endometrium: Findings suggestive of a 5 mm x 7 mm x 4 mm endometrial polyp. Right ovary: 2 cm x 1.9 cm 1.5 cm dominant follicle in the right ovary. Left ovary: Normal size and echotexture. Other: No large pelvic mass identified. US/Transvaginal Non- IMPRESSION: Stable small fundal uterine fibroid. Dominant follicle in the right ovary. 5 mm x 7 mm x 4 mm endometrial polyp. Reading Location: [place] [address]
== END | disposition home or self-care (01) ==
LOC: US 09:58
PROVIDERS: PCP Internal Medicine; Referring Provider Nurse Practitioner Women's Health; Visit Provider Nurse Practitioner Women's Health
DX: N83.209 Unspecified ovarian cyst, unspecified side (principal)
CPT/HCPCS: 76830

== ENCOUNTER 2025-09-18 09:10 | Day surgery (SDC) | payer OTHER, SELFPAY ==
--- NOTE | 2025-09-17 22:35 | HP.PCM_ITS ---
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 Is patient in pain?: No Allergies No Known Allergies Allergy (Verified 07/25/25 15:20) Medications ?Medication ?Instructions ?Recorded ?Confirmed ?Type cholecalciferol (vitamin D3) 50 50 mcg PO QDAY 04/03/25 07/25/25 History mcg (2,000 unit) capsule doxycycline hyclate 50 mg capsule 50 mg PO QDAY 04/03/25 07/25/25 History multivitamin 1 tab PO QAM 04/03/25 07/25/25 History loratadine 10 mg tablet 10 mg PO QDAY 06/21/25 07/25/25 History progesterone micronized 100 mg 100 mg PO QHS 06/21/25 07/25/25 History capsule testosterone 25 mg implant pellet mg implant 06/21/25 07/25/25 History Post menopausal: No Patient : No : No PFSH Medical History Situational anxiety Allergies No active medical problems Surgical History H/O colonoscopy History of surgical procedure [place] teeth extracted Family History Father Myocardial infarction, Onset Age: 48 Heart disease CVA (cerebral vascular accident), Onset Age: 60 AAA (abdominal aortic aneurysm) Afib Sister Autoimmune disease lupus Mother Thyroid disorder Social History adopted: No household members: children number of children: 1 current occupational status: employed 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 [employer] pets and animals: Yes pets and animals: cat(s) and dog(s) sexually active: Yes Smoking Status: Former smoker quit date: 09/20/13 pack-years: 7 Tobacco: How many years used: 15 alcohol intake: current alcohol intake frequency: holidays/special occasions only substance use type: does not use diet: low carbohydrate caffeine: Yes (1-2qd) Type: coffee what type of physical activity do you participate in: running frequency: 3-4 times per week do you feel safe at home: Yes HPI added a BS to original procedure Details: The patient is a 40-year-old female with a history of irregular bleeding presenting for evaluation and management. Irregular Bleeding - Irregular bleeding has been ongoing for approximately two years. - Recent episodes have become more frequent and closer together. - Describes recent bleeding pattern as having a full regular cycle with heavy clotting for 2 days, followed by a 5-day cycle, a week off, and then continuous bleeding. - Oral progesterone 100 mg daily has not helped with the bleeding. - Recent ultrasound in May showed a polyp, which was not present in March. Menopausal Symptoms - Reports difficulty staying asleep, sometimes due to hot flashes or night sweats. - Has been taking oral progesterone 100 mg daily, which makes her sleepy but has not helped regulate sleep. - Has a history of mood issues, including anxiety and depression, but is currently stable. - Has been on Lexapro and has participated in counseling in the past. - Has not tried trazodone and is hesitant to start a sleep aid. Hormone Replacement Therapy - Currently has testosterone pellets implanted, with the last implant in April. - Reports improved energy levels and body composition with testosterone. - Considering whether to continue testosterone therapy. - Has been taking oral progesterone 100 mg daily, which has not helped with bleeding or sleep. Urinary Symptoms - Reports mild urinary leakage when sneezing or coughing, but it does not interfere with quality of life. Past Diagnostic Results - Ultrasound (March): No polyp detected. - Ultrasound (May): Polyp detected. - Cholesterol (last fall): LDL was high. - Thyroid function tests: Normal. Female Reproductive History Menopausal Symptoms: No night sweats ROS Const Constitutional: Denies fatigue, night sweats, weight gain or weight loss ENT ENT: Reports system reviewed and no additional complaints, except as documented Cardio Card: Denies chest pain Resp Resp: Denies cough or dyspnea GI GI: Reports as per HPI; Denies abdominal pain, constipation, nausea or vomiting : Denies nipple discharge, urinary frequency, urinary incontinence, urinary hesitancy, urinary urgency, vaginal discharge, vaginal dryness, vaginal odor or vaginal pruritus Musc Musc: Denies arthralgias, back pain or muscle weakness Skin Skin/Breast: Denies alopecia, change in hair, dry skin, breast mass, breast pain, breast skin changes or nipple discharge Neuro Neuro: Reports system reviewed and no additional complaints, except as documented Psych Psych: Reports system reviewed and no additional complaints, except as doc umented Endo Endo: Denies cold intolerance, excessive sweating, heat intolerance or polydipsia William/Lymph Hematologic/Lymphatic: Denies easy bleeding, Denies easy bruising and Denies lymphadenopathy Exam Const General: cooperative, healthy appearing, comfortable and no acute distress Orientation: alert HENNY Head: normal to inspection and normocephalic Ears: hearing grossly normal bilaterally and external ears normal Nose: external nose normal and nares normal Face and sinus: normal facial exam Neck Neck: normal visual inspection and no lymphadenopathy Thyroid: thyroid normal Chest Chest palpation & inspection: normal inspection of the chest Resp Effort & Inspection: normal respiratory effort Auscultation: clear to auscultation bilaterally Cardio Rate: regular rate Rhythm: regular rhythm Heart Sounds: S1 normal and S2 normal GI Inspection: normal to inspection and non-distended Palpation: soft and no hepatosplenomegaly Musc Other: gross motor intact no deficits, full bilateral strength Skin General: no rashes or lesions noted Neuro General: patient alert, patient awake, moves all extremities and no focal motor deficits Motor: muscle tone normal throughout Extrem General: normal to inspection and no pedal edema Psych Appearance: grossly normal Mental Status: mental status grossly normal Affect: normal affect Speech and Movement: speech and movement normal Coding Level of Care Code No Charge Diagnoses Endometrial polyp N84.0 Vulvar skin tag N90.89 Abnormal uterine bleeding (AUB) N93.9 Assessment and Plan Assessment and Plan (1) Endometrial polyp: Status: Acute Comment: plan d and c hysteroscopy polypectomy symphion ivon ablation/remove labial skin tag also (2) Vulvar skin tag: Status: Acute Comment: vs wart. No response to aldara. left labia minora edge-remove at D&C (3) Abnormal uterine bleeding (AUB): Status: Acute Comment: plan d and c hysteroscopy polypectomy symphion ivon ablation lparoscopic BS Plan After discussing the patient's diagnosis and treatment plan options, patient wishes to proceed with surgical management. I have discussed with the patient the risks, benefits, and alternatives of the procedure which include but are not limited to risks of anesthesia, bleeding, infection, possible damage to bowel, bladder, or surrounding vasculature which could lead to additional surgery to evaluate any complications. Patient agrees to procedure and wishes to proceed. ACOG/uptodate references given for additional information regarding procedure.
[2025-09-18] VITALS (11 sets, daily range): BP systolic 113–131; BP diastolic 78–96; PULSE 68–90; RESP 18–20; TEMP 36.1–36.7; O2SAT 96–100; BMI 23.1
[2025-09-18 09:27] LABS: Internal QC Validated? YES +Cl - CLEAR BKGD; Pregnancy, Urine Negative Negative
[2025-09-18] MEDS: Lactated Ringers 1,000 ML 15 ML IV (09:36)
--- NOTE | 2025-09-18 10:10 | PCM.PRE.AN2 ---
ASA Classification* ASA Classification ASA Classification: 2 Assessment & Plan Anesthesia* Anesthesia Assessment Anesthesia Assessment: Discussed sedation and/or anesthesia options, risks, benefits, and alternatives with patient/parents/legal guardian/POA. Questions invited. The patient/parents/legal guardian/POA seems to understand and agrees to proceed with anesthesia plan. Reviewed the physical assessment, medical history, allergy history and patient home medications list prior to surgery/procedure/anesthetic and documented any changes. Performed airway and anesthesia risk assessments. Anesthesia Type Anesthesia Type: General History Source History Obtained from:: Patient and Chart Anesthesia Focused Assessment* Temperature: 98.0 F Pulse Rate: 70 Blood Pressure: 131/96 Respiratory Rate: 18 Pulse Ox: 100 Oxygen Delivery Method: Room Air Airway Assessment Mouth opens: >3 cm Mallampati Score: II Teeth Condition: Missing (Patient has a missing right lower molar. Rest of the teeth are tight.) and Implants (Patient has a left lower implant.) Neck Range of motion (ROM): Full ROM Labs Anesthesia Preop lab: CBC WBC, (4.4-11.0) 4.0 K/mm3 L 07/03/25, 07:39 RBC, (4.2-5.4) 4.39 M/mm3 07/03/25, 07:39 Hgb, (12.0-15.0) 13.4 g/dL 07/03/25, 07:39 Hct, (37-47) 39.1 % 07/03/25, 07:39 Plt Count, (150-450) 249 K/mm3 07/03/25, 07:39 CHEMISTRY Potassium, (3.3-5.1) 4.2 mmol/L 07/03/25, 07:39 Sodium, (133-145) 137 mmol/L 07/03/25, 07:39 Phosphorus, (2.7-4.5) 3.5 mg/dL 07/03/25, 07:39 BUN, (4-19) 14 mg/dL 07/03/25, 07:39 Creatinine, (0.70-1.20) 0.79 mg/dL 07/03/25, 07:39 Glucose, (70-99) 81 mg/dL 07/03/25, 07:39 TSH, (0.358-3.740) 1.930 uIU/mL 02/05/25, 12:18 COAG Urine Test Negative Negative Today, 09:15 Tst Clinic Negative 03/16/24, 06:20 Pre-Assessment Diagnosis/Proposed Procedure Planned Operative Procedure(s): (B) Hysteroscopy,D&C Symphion Polypectomy, Aleyda Ablation, Bilateral Salpingectomy (B) Laparoscopic, Salpingectomy Anesthesia History 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 When Was Last Pacemaker Check QUESTION #4 FULL TEXT: You/Your Family Experience fever (hyperthermia) with Anesthesia Last Oral Intake Last Oral intake: Last Oral Intake NPO since 06:00 09/18/25 09:29 Meds taken in AM with sips of No 09/18/25 09:29 water? 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 clerk Female Yes 09/11/25 11:06 HX of Motion Sickness Yes 09/11/25 11:06 HX of N/V After Surgery No 09/11/25 11:06 Non-Smoker Yes 09/11/25 11:06 Duration of Surgery greater Yes 09/11/25 11:06 than 60 minutes Number of Risk Factors 4 09/11/25 11:06 PONV Score Severe Risk 09/11/25 11:06 Height & Weight Height & Weight: Anesthesia: Height & Weight Height 5 ft 10 in 09/18/25 09:29 Weight: 73 kg 09/18/25 09:29 Body Mass Index (BMI) 23.1 09/18/25 09:29 Respiratory Assessment Respiratory Assessment - sales correspondence clerk: Respiratory Tract Infection Hx - sales correspondence clerk Hx Respiratory Tract Infection No 09/11/25 11:06 STOP Sleep Apnea STOP Sleep Apnea - sales correspondence clerk: STOP Sleep Apnea - sales correspondence clerk Hx Hypertension No 09/11/25 11:06 Hx Sleep Apnea No 09/11/25 11:06 CPAP BIPAP Do you snore loudly (louder No 09/11/25 11:06 than talking or can be heard Do you often feel tired/ No 09/11/25 11:06 fatigued/ sleepy during daytime? Has anyone observed you stop No 09/11/25 11:06 breathing during sleep? STOP Results Negative 09/11/25 11:06 QUESTION #5 FULL TEXT : Do you snore loudly (louder than talking or can be heard through closed doors)? 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 Specify any problems Hx of Preganancy in last 3 No 09/11/25 11:06 Months Nurse Filling Out Transfusion VCHRISTIN 09/11/25 11:06 & Questions: Date: 09/11/25 09/11/25 11:06 Time: 11:06 09/11/25 11:06 Patient unable to answer at this time (ie. confused, unrespo /Reproduction History /Reproductive History - sales correspondence clerk: /Reproductive Hx- sales correspondence clerk Hx Now No 09/11/25 11:06 Gestational Age (in weeks): EDC: Hx Hx Para Hx Section SAB No 09/11/25 11:06 Does the father of the baby or his family experience fever w Father of the baby Malignant Hypertension history comment Active Medications Active Medications: Current Medications Generic Name Dose Route Start Last Admin Trade Name Salazarq PRN Reason Stop Dose Admin Lactated Ringer's 1,000 mls @ 15 mls/hr 09/18/25 09:15 09/18/25 09:36 IV 15 mls/hr .Q48H GASTON Administration PFSH Medical History Wears glasses Heartburn Former smoker Situational anxiety Allergies No active medical problems Home Medications ?Medication ?Instructions ?Recorded ?Last Taken ?Type cholecalciferol (vitamin D3) 50 50 mcg PO QDAY 04/03/25 Unknown History mcg (2,000 unit) capsule multivitamin 1 tab PO QAM 04/03/25 Unknown History loratadine 10 mg tablet 10 mg PO QDAY 06/21/25 Unknown History progesterone micronized 100 mg 100 mg PO QHS 06/21/25 Unknown History capsule testosterone 25 mg implant pellet 25 mg implant X1 06/21/25 Unknown History Allergy/AdvReac Type Severity Reaction Status Date / Time No Known Allergies Allergy Verified 09/18/25 09:28 Family History Father Myocardial infarction, Onset Age: 48 Heart disease CVA (cerebral vascular accident), Onset Age: 60 AAA (abdominal aortic aneurysm) Afib Sister Autoimmune disease lupus Mother Thyroid disorder Surgical History H/O colonoscopy History of surgical procedure [place] teeth extracted Social History adopted: No household members: children number of children: 1 current occupational status: employed 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
--- NOTE | 2025-09-18 11:00 | EMB_PTH ---
PATIENT: RAÚL MIRANDA LOC: [facility] – [place] U#:[id number] AGE/SX: 40/F ROOM: RE09/18/[address]: Dr. Sarah Coffey MD : 1985 BED: DIS: 09/18/2025 SPEC #: [id number] RECD: 09/18/25 13:36 STATUS: MAYRA REQ #: [id number] TYRON: 09/18/25 11:[address]: Sarah Coffey DEPT: SURGICAL PATHOLOGY RECD BY: Eugenie Esqueda ENTERED: 09/18/25 13:52 SP TYPE: ENDOM BX/C OTHR DR: Dr. Leda Wrihgt MD Tissues: A - Endometrium, NOS B - Fallopian tube Procedures: Surgery Specimen Level II Surgery Specimen Level IV HEADER OPERATION: Hysteroscopy, D&C symphion, Aleyda ablation, bilateral salpingectomy PRE-OP DIAGNOSIS: Endometrial polyp, vulvar skin tag, abnormal uterine bleeding TISSUE SUBMITTED: A. Endometrial curettings and polyp, B. bilateral fallopian tubes MICROSCOPIC DIAGNOSIS A. Endometrium and polyp, curettage: - Proliferative endometrium, extensively fragmented, with focal polypoid configuration. - Small fragments of benign squamous and endocervical mucosa. B. Bilateral fallopian tubes, bilateral salpingectomy: - No specific pathologic change with complete luminal cross-section confirmed, x2. MICROSCOPIC DESCRIPTION Slides are reviewed. GROSS DESCRIPTION The specimen is received in two properly labeled containers with the patient's name and accession number. A. ?The specimen is designated endometrial curettings and consists of a 3.3 x 2.8 x 0.5 cm aggregate of red-brown soft tissue fragments, blood clot, and mucoid material which is filtered and submitted entirely. TE 4 B. ?The specimen is designated bilateral fallopian tubes and it consists of two undesignated fallopian tube segments, one of which is fimbriated (fallopian tube #1) and one of which does not display fimbria (fallopian tube #2). Fallopian tube #1 is 4.5 cm in length and 0.5 cm in average diameter with a cobb-purple, smooth serosal surface. Sectioning reveals a pinpoint lumen. Fallopian tube #2 is 4.3 cm in length and 0.5 cm in diameter with a cobb-purple, smooth serosal surface. Sectioning reveals a pinpoint lumen. RS 2 Cassettes: B1, apprenticeship training representative fallopian tube #1, to include entire fimbriated end B2, apprenticeship training representative fallopian tube #2 [facility] 09/18/2025 CPT:50852,97110
[2025-09-18] MEDS: Midazolam 2 MG/2 ML Syringe IV (11:52)
[2025-09-18] MEDS: Lactated Ringers 1,000 ML 1000 ML IV (11:53)
[2025-09-18] MEDS: fentaNYL 100 MCG/2 ML Ampul IV (11:58)
[2025-09-18] MEDS: Lidocaine 1% (5 ml sdv) 5 ML Vial IV (11:58)
[2025-09-18] MEDS: Cefazolin 1 GM/5 ML Vial 2 GM IV (12:42)
--- NOTE | 2025-09-18 13:14 | DCINST_ITS ---
Discharge Instructions DC O2, CPAP, BIPAP needs Home O2 Discharge instructions: No Dressing / Incision Discharge Activity: Return to Normal Activity, May Not Drive ( while taking narcotic pain meds, when pain free), May Shower and May Take a Tub Bath (in 7 days) May resume sexual activity in: 1 week Weight Bearing Status: Full weight bearing Dressing / Incision Call your doctor if your incision/area has: Continuous Slow Oozing, Sudden Increased Bleeding, Increased Pain/ Swelling, Increased Redness and Foul Smelling Discharge Call your doctor if you observe: Fever of 101 or Higher, Using more than 1 pad per hour, Shortness of breath, Chest pain and Uncontrolled pain Suture Line Care: Avoid Pulling/Pushing and Avoid Pinching/Bending Remove Dressing in: 1 week (if present) Cleanse incision/area with: Soap & Water and Keep Dressing Clean & Dry Follow Up Care When: Call to make an appointment with your doctor for a fu/incision check in 1- 2 weeks. Test Results: Test results from this visit will be discussed in further detail at your follow- up appointment, if applicable. Discharge Plan Admission Attending Provider: Sarah Coffey Primary Care Provider: Leda Wright Instructions Print Language: Divehi Discharge Orders/Prescriptions Prescriptions: New oxycodone-acetaminophen [Percocet] 5-325 mg tablet 1 tab PO Q4H PRN (Reason: pain) 7 Days Qty: 20 0RF naproxen 500 mg tablet 500 mg PO BID PRN PRN (Reason: Pain) Qty: 30 1RF No Action multivitamin Tablet 1 tab PO QAM cholecalciferol (vitamin D3) 50 mcg (2,000 unit) capsule 50 mcg PO QDAY testosterone 25 mg pellet 25 mg implant X1 Rx Instructions: implant-gluteus progesterone micronized 100 mg capsule 100 mg PO QHS loratadine 10 mg tablet 10 mg PO QDAY Disposition Disposition (needs filled in before D/C Order can be placed): Home, Self Care
--- NOTE | 2025-09-18 13:14 | PCM.OPRPT ---
Operative Report (Standard) Operative Information Date of Procedure: 09/18/25 Pre-Operative Diagnosis: aub sterilization Post-Operative Diagnosis: same Surgery/Procedure Performed: laparosocpic bilateral salpingectomy and d and c hysteroscopy aleyda ablation system planning engineer: Yes Gis Software Developer: Marzena Lyons Tasks completed by engineer third assistant: Opening & closing and Trocar Additional nurse practitioner physicians assistant?: No Type of Anesthesia: General RN Documented Start/Stop Times: Operation Date: 09/18/25 11:00 Case Time Into Pre-Op 09/18/25 09:12 Out of Pre-Op 09/18/25 11:47 Anesthesia Start 09/18/25 11:52 Into Room 09/18/25 11:52 Procedure Start 09/18/25 12:12 Procedure End 09/18/25 13:09 Anesthesia End 09/18/25 13:19 Out of Room 09/18/25 13:19 Into Recovery 09/18/25 13:21 Into Phase II Recovery 09/18/25 14:05 Out of Recovery 09/18/25 14:05 Procedure Start Time: 12:12 Procedure Stop Time: 13:09 Select all DRAINS/GRAFTS/IMPLANTS that apply: None Estimated Blood Loss: 25 Specimen collected: Yes Description of specimen(s) removed: tubes emc Description of surgery: Patient was taken in the operating room and was placed under general anesthesia was prepped and draped in normal sterile fashion in the dorsal lithotomy position. Bladder was drained of clear urine and SCDs were on preoperatively. Uterus was sounded and a uterine manipulator was placed after dilating. Attention was then paid to the abdominal portion of the procedure and the umbilicus was elevated with towel clamps and injected with Marcaine and after a 5 mm incision was made and the Veress needle was entered into the abdomen confirmed to be intra-abdominal with a low opening pressure of less than 5 mmHg. Abdomen was insufflated with CO2 gas and a 5 mm optical trocar was placed under direct visualization. A 5 mm port suprapubically were placed under direct visualization. Uterus was well visualized and bilateral fallopian tubes identified and bilateral tubes were elevated and transecting across the mesosalpinx and the attachment to the uterine corpus bilaterally the tubes were removed without complication. Some adhesions were noted on the left fallopian tube which were taken down with the LigaSure device excellent hemostasis was noted. Fallopian tubes were removed through the suprapubic port site however the part of the fimbria became lodged within the abdominal wall and therefore an additional left lower quadrant port site was placed to aid in opening the peritoneal space around the port site and the piece of fimbria was dissected out and then removed through a bag. Liver and upper abdomen were visualized notably within normal limits and no other gross abnormalities were seen in the abdomen. All instruments removed from the abdomen after gas was desufflated. Port sites were closed with 3-0 Monocryl Steri's and op sites were applied. A weighted speculum was placed in the vagina and the anterior lip of the cervix was grasped with a single-tooth tenaculum. Cervix was progressively dilated to allow passage of a 5 mm hysteroscope. The lining was fully visualized and noted to have a thickened lining but no polyps . Uterine sounded to 8 cm. Curettage was performed and tissue removed , sent to pathology. The Aleyda device was opened and the cavity length was found to be 4 cm. Device was inserted into the uterus and balloon inflated and device deployed. Integrity of the cavity was confirmed and a 2 minute treatment cycle was completed without complication. All instruments were removed from the vagina and excellent hemostasis was noted. Patient was awoken and taken to recovery in stable condition. All instruments removed from the vagina and patient was awoken and taken recovery in stable condition. Surgical Findings: left tubal adhesions Complications Complications: No
--- NOTE | 2025-09-18 13:27 | PCM.POST.ANE ---
Anesthesia: Postop Eval I Current Vital Signs Temperature: 97.0 F Pulse Rate: 86 Blood Pressure: 121/85 Respiratory Rate: 20 Pulse Ox: 97 Oxygen Delivery Method: Room Air Assessment Airway patent: Yes Spontaneous unlabored respirations: Yes Mental status: Awake and Calm nausea: No Vomiting: No Anesthesia Complication: No Fluid Hydration Crystalloid volume administer (ml): 1,000 Total IV fluid infused: 1,000 Progress Note Anesthesia document: Postop Eval 1 completed: Yes
--- NOTE | 2025-09-18 15:07 | POSTOPAN2_ITS ---
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 Anesthesia Postop Eval I: Fluid Summary Crystalloid volume administer 1,000 09/18/25 13:28 [email or web address] [email or web address] (ml) Colloids volume administered ( ml) Blood Product volume administered (ml) Total IV fluid infused 1,000 09/18/25 13:28 [email or web address] [email or web address] Anesthesia Postop Eval I: Summary Notes Anesthesia Complication No 09/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 Toradol 30 mg given IV. Complications Anesthesia Complication: No
--- NOTE | 2025-09-18 15:07 | PCM.POSTANE2 ---
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 Vomiting No 09/18/25 13:28 [email or web address] Anesthesia Postop Eval I: Fluid Summary Crystalloid volume administer 1,000 09/18/25 13:28 [email or web address] (ml) Colloids volume administered ( ml) Blood Product volume administered (ml) Total IV fluid infused 1,000 09/18/25 13:28 [email or web address] Anesthesia Postop Eval I: Summary Notes Anesthesia Complication No 09/18/25 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 Toradol 30 mg given IV. Complications Anesthesia Complication: No
== END 2025-09-18 15:11 | disposition home or self-care (01) ==
LOC: SDC 09:10 → AC 09:11
PROVIDERS: PCP Internal Medicine; Referring Provider Obstetrics & Gynecology; Visit Provider Obstetrics & Gynecology
PROC: 0UB98ZZ Excision of Uterus, Via Natural or Artificial Opening Endoscopic (ICD-10-PCS; CPT 58558; principal; 2025-09-18 10:45)
PROC: (CPT 58661; 2025-09-18 10:45)
DX: N84.0 Polyp of corpus uteri (principal); N95.1 Menopausal and female climacteric states; Z87.891 Personal history of nicotine dependence
CPT/HCPCS: 58661; 58563; 00840; 81025; 86850; 86900; 86901; 88302; 88305; J2405